=== PATIENT | male | born 1945 | race Caucasian/White ===

== ENCOUNTER → 2020-02-11 12:00 | Outpatient (BNVA) | payer OTHER, SELFPAY | PROVIDERS: PCP Family Medicine; Visit Provider Internal Medicine Critical Care Medicine | DX: R91.1 Solitary pulmonary nodule (principal) | CPT/HCPCS: 87635 ==

== ENCOUNTER 2020-02-15 08:17 | Day surgery (SDC) | payer OTHER, SELFPAY ==
[2020-02-14 13:26] VITALS: BMI 23.0
[2020-02-15] VITALS (7 sets, daily range): BP systolic 106–136; BP diastolic 55–80; PULSE 64–98; RESP 18–22; TEMP 36.4–36.8; O2SAT 94–100
--- NOTE | 2020-02-15 | CT_ITS ---
Guided Bronchoscopy Planning CT images; total exam DLP: 585.40 mGy-cm MTDD
[2020-02-15] MEDS: sodium chloride 0.9% 1,000 ML 30 ML IV (08:40)
--- NOTE | 2020-02-15 08:49 | P.ANESASSM_ITS ---
Pre-Anesthetic Assessment Pre-Anesthetic Assessment: Height/Weight: Height 1.83 m Weight 77.111 kg Temp Pulse Resp BP Pulse Ox 97.8 F 98 18 122/80 95 02/15/20 08:31 02/15/20 08:31 02/15/20 08:31 02/15/20 08:31 02/15/20 08:31 Preop Diagnosis: Lung cancer Proposed Procedure: Operation Date: 02/15/20 09:45 Proposed Procedures p Dominik C34.12 [id number](Not Applicable) - Estela Andrade MD Familial anesthetic complications: No personal history of anesthesia, no known family problems Was Beta Naa taken within 24 hours: N/A Last intake: Intake Last Liquid Date 02/14/20 Last Liquid Time 19:00 Last Solid Date 02/14/20 Last Solid Time 19:00 Social: Social History: No alcohol and No tobacco Exam: Pre-Anes Outpt Exam: alert, oriented x 3, clear to auscultation bilaterally and regular rate & rhythm Airway: Cervical ROM: WNL MP: 3 Dentition: Full Additional comments: kennedy Pulmonary: Pulmonary: COPD Comments: lung mass CV/HEM: CV/HEM: HTN Hepatic: Hepatic: Hepatitis (C) Anesthetic Plan: ASA status: 3 Anesthesia: General Risk of > 500 ml blood loss (7ml/kg in children): No Meds/Allergies Current Medications: Current Medications Generic Name Dose Route Start Last Admin Trade Name Freq PRN Reason Stop Dose Admin Sodium Chloride 1,000 mls @ 30 ml s/hr 02/15/20 08:00 02/15/20 08:40 Sodium Chloride 0.9% IV 02/16/20 07:59 30 mls/hr .Q24H TYRELL Administration PFSH Anesthesia PFSH: Medical History (Updated 02/11/20 @ 10:21 by Estela Andrade MD) Chronic viral hepatitis C COPD (chronic obstructive pulmonary disease) DDD (degenerative disc disease) Ganglion cyst HTN (hypertension) Malignant neoplasm of prostate Malignant neoplasm of upper lobe, left bronchus or lung Nicotine dependence Scalp mass Surgical History (Updated 02/11/20 @ 10:17 by Estela Andrade MD) History of surgical removal of ganglion cyst Hx of tonsillectomy Family History Father CAD (coronary artery disease) Cancer Social History Smoking and tobacco status: current every day smoker cigarettes Packs smoked p er day: 0.5 Years cigarettes smoked: 43 Second hand smoke exposure: Yes Alcohol intake: former Lives independently: Yes Household members: spouse Marital status: Current occupational status: retired History of recent travel: No Current gender identity: Male Data Anesthesia Cardiac Studies: No Data to Display
--- NOTE | 2020-02-15 10:09 | P.HPUD_ITS ---
Surgery/Procedure H&P Update DATE OF PROCEDURE: February 15, 2020 DATE H&P PERFORMED: 02/11/20 H&P UPDATE INFORMATION: I have reviewed H&P completed within last 30 days, I have examined patient prior to procedure and No changes to prior documentation PREOP DIAGNOSIS: Lung cancer PRIMARY INDICATION FOR PROCEDURE: Suspected lung cancer PLANNED PROCEDURE: Bronchoscopy with inspection of the airway, possible endobronchial and transbronchial biopsies under navigational guidance, endobronchial sound guided transbronchial needle aspiration of lymph nodes. Operation Date: 02/15/20 09:45 Proposed Procedures zion Lehman C34.12 [id number](Not Applicable) - [facility] MD Raymond
[2020-02-15] MEDS: lidocaine 1% INJ 50 mL 20 ML XX (12:26)
--- NOTE | 2020-02-15 13:02 | PM.OP ---
Operative Report Date of procedure: February 15, 2020 Pre-op Diagnosis: Lung cancer Post-op diagnosis: same Brief History: This is a 74-year-old gentleman with suspected metastatic lung cancer coming in for bronchoscopic evaluation. Procedure: Name of the procedure: Bronchoscopy with inspection of the airway, bronchoalveolar lavage, navigational bronchoscopy guided transbronchial biopsies of the left upper lobe lung mass, control of bleeding. Indication: Suspected lung cancer with metastatic disease to the brain. Anesthesia: General anesthesia. Local anesthesia: The brittany in the right and left mainstem bronchi were anesthetized with 1% lidocaine, 3 mL. Description of the procedure: The procedure was explained to the patient and the consent was obtained. The patient was brought to the OR. The patient underwent endotracheal intubation for general anesthesia. Following induction of general anesthesia, the bronchoscope was advanced through the ET tube. The lower trachea appeared to be normal. The brittany was sharp. The brittany, the right and left mainstem bronchi are anesthetized with 1% lidocaine. In a systematic manner bilateral bronchial tree was then examined. The bronchoscope was advanced into the left mainstem bronchus. The left upper lobe, lingula and left lower lobe bronchi were examined up to the third subsegmental level and no abnormalities were identified. The bronchoscope was then introduced into the right mainstem bronchus. The right upper lobe, right middle lobe and right lower lobe bronchi were examined up to the third subsegmental level and no abnormalities were identified. There was mild mucus throughout the airways. Using navigational bronchoscopy transbronchial biopsy was performed from the left upper lobe lung mass. Multiple samples are obtained Bronchoalveolar lavage was performed from the posterior segment of left upper lobe. 60 mL of fluid was instilled 20 cc fluid return. Samples: 1. Transbronchial biopsies are sent for histopathology 2. Bronchoalveolar lavage was sent for cytology. Complications: There was no immediate complications.
--- NOTE | 2020-02-15 13:04 | PC.NURSE ---
EBUS BALLOON REMAINS INTACT.
--- NOTE | 2020-02-15 14:06 | PTH.EBUS ---
Endobronchial Ultrasound Specimen(s): Left upper lobe mass transbronchial biopsy Gross: The specimen is received fresh on a slide labeled with the patient's name and MRN number and additionally labeled, left upper lobe mass transbronchial biopsy consists of a fragment of tiwari-white soft tissue measuring 0.1 x 0.1 x 0.1 cm. 2 Diff-Quik cytology slides are prepared with touch preparation. A rapid onsite evaluation is performed. Preliminary Impression: Lung, left upper lobe , mass, transbronchial biopsy: ?Positive for malignancy. ?Multiple small fragments are submitted in a formalin filled container for permanent sections. - Specimen Information Pathologist: Elia Chandler Date: 02/15/20 Specimen reported at what time: 13:05 - Clinician Specimen collection time: 12:47 Clinician reported to: Estela Andrade
== END 2020-02-15 14:26 | disposition home or self-care (01) ==
PROVIDERS: PCP Family Medicine; Visit Provider Internal Medicine Critical Care Medicine
PROC: 0BJ08ZZ Inspection of Tracheobronchial Tree, Via Natural or Artificial Opening Endoscopic (ICD-10-PCS; CPT 31622; principal; 2020-02-15 09:45)
PROC: 0BJ08ZZ Inspection of Tracheobronchial Tree, Via Natural or Artificial Opening Endoscopic (ICD-10-PCS; CPT 31622; 2020-02-15 09:45)
DX: C34.12 Malignant neoplasm of upper lobe, left bronchus or lung (principal); J44.9 Chronic obstructive pulmonary disease, unspecified; I10 Essential (primary) hypertension; B19.20 Unspecified viral hepatitis C without hepatic coma; F17.210 Nicotine dependence, cigarettes, uncomplicated; Z85.46 Personal history of malignant neoplasm of prostate
CPT/HCPCS: 12345; 31627; 31628; 77011; 80500; 88112; 88305; J1100; J2250; J2310; J2370; J2405; J2704; J3010; J3490; J7030

== ENCOUNTER 2020-03-17 05:21 | Outpatient (RCR) | payer OTHER, SELFPAY ==
--- NOTE | 2020-02-27 09:38 | ONC CON_ITS ---
Dr. Jefferson New Patient Note Patient: Rubén Vicente < Unit #: [id number]: 1945 Dicatated By: Galindo Jefferson M.D.Date of Visit: Feb 27, 2020 Onc MED New Patient/Consult Referring Physician: Dr. KAY CHANG M.D. [facility] [place] History of Present Illness: Mr. Rubén Vicente, is a 75-year-old gentleman, who in the last week of December 2019 developed progressive headaches for which he underwent MRI scan of the brain on January 17 2020 which showed 3 enhancing lesions with surrounding edema involving the left side of brainstem at the level of katy. There is edema involving portion of anterior left side of cerebellum. Fourth ventricle demonstrates mild mass-effect from the edema. Supratentorially there is an enhancing lesion in the right thalamus with a large amount of surrounding edema causing midline shift from left to right approximately 4 to 5 mm. There is an enhancing lesion with a surrounding edema involving cortex and deep white matter right occipital lobe. As per pulmonology note patient underwent CT scan of chest which showed large mass measuring 6.5 x 5.1 x 5.3 cm left upper lobe and also another nodule in the same lobe. Patient underwent bronchoscopy with transbronchial biopsy on February 15, 2020 which showed poorly differentiated adenocarcinoma, favor lung region as immunohistochemistry stains were positive for TTF-1, Napsin, CK cocktail, CK7, and negative for PSA, p63, synaptophysin, CK20, CK 5/6 and chromogranin A and CDX2. Patient denies any hemoptysis or hematemesis, denies any bony pains, denies any jaundice, denies any focal weakness, denies any dysphagia. But lost about 10 pounds in the last couple of months. Patient has history of prostate cancer diagnosed in April 2015, Wren score was [address] scan of abdomen/pelvis and bone scan shows no evidence of metastatic disease, being high risk, at that time he was treated with Eligard and radiation therapy patient continue to take Eligard every 3 months and the last dose was given in December 2019 Patient has history of smoking for 50 years but quit smoking in December 2019, history of alcohol use, mostly beer only. Patient denies any fever chills, denies any nausea or vomiting denies any diarrhea or constipation, denies any shortness of breath. Appetite is good. He is alert and oriented but complaining of progressive worsening of handwriting and questionable memory loss but no seizure-like activity.Or focal weakness Past Medical History: Mr. Vicente's medical history consists of hepatitis C, hypertension, and cancer (Prostate) in 2016. Past Surgical History: Mr. Vicente's surgical/procedural history consists of Transrectal Prostate Ultrasound & Prostate Biopsy in 2016. Medications: Eligard 1 (22.5 mg) Subcutaneous q 90 days Allergies: No Known Allergies. Social History: Mr. Vicente is legally and he is retired. He is a daily smoker who has smoked 1.0 pack/day for 43 years. He drinks occasionally. He consumes 6 drinks/day 4 days/week. He has indicated exposure to the following products: beer, marijuana, and cigarettes. Family History: Mr. Vicente's mother is alive: Melanoma Cancer. Mr. Vicente's father is : Cancer. Review Of Symptoms: Constitutional - Appetite is diminished and weight is stable. No fever, night sweats, or hot flashes. Energy level is fair, ENMT - No sinus congestion/drainage. No mouth sores. No sore throat or difficulty swallowing, Hematologic/Lymphatic - No abnormal bruising or bleeding, Respiratory - No shortness of breath. No cough. No pleuritic pain or hemoptysis, Cardiovascular - No angina pain. No palpitations, Gastrointestinal - No nausea or vomiting. No heartburn or acid reflux. No diarrhea or constipation. No blood in the stool or black stools, Genitourinary (M) - No dysuria or hematuria. No urinary frequency. No urgency or incontinence, Musculoskeletal - No joint or bone pain, Neurologic - No headache. Positive for dizziness. No numbness or tingling. No other focal neurologic symptoms, Psychiatric - No anxiety or depression. No insomnia. Vital Signs: Performed on Feb 27, 2020 08:10: 0, 24.11, 2.03 sq.m, 72.00 in, 97 %, 82 /min, 18 /min, 123/74 mm(hg), 97.7 F (LOW), 177.8 lbs (LOW), and Performed on Feb 16, 2017 08:49: . Performance Status: 1 - No physically strenuous activity, but ambulatory and able to carry out light or sedentary work (e.g. office work, light house work). (ECOG) Physical Examination: ENMT - No mouth sores, no thrush, no jaundice, Respiratory - Poor air entry otherwise otherwise clear to auscultation, Heart S1-S2, Abdomen - Soft, bowel sounds present, Extremities - No visible edema or focal weakness. Lab/Imaging: Most recent lab results are not available for this patient. Impression: [Metastatic poorly differentiated adenocarcinoma, favor lung lesion per transbronchial biopsy done on February 15, 2020 immunohistochemistry positive for TTF-1, Napsin, CK cocktail, CK7, negative for PSA, p63, synaptophysin, CK20, CK 5 6, CDX2, chromogranin A. MRI scan of the brain done on January 17, 2020 showed brain mets Clinical stage IV History of prostate cancer, high risk diagnosed in April 2015, with negative CT scan of abdomen pelvis and bone scan but high Wren score, being high risk status post ADT/radiation therapy followed by Susanna every 3 months, last dose was given in December 2018 History of smoking 50+ year quit in December 2019 Plan: [Discussed with patient regarding his disease status and treatment options, patient has progressive neurological symptoms due to brain mets, now with worsening of handwriting and questionable memory loss and persistent headaches, probably due to brain mets with surrounding edema, at this point, we will start him on dexamethasone 4 mg p.o. every 8 hours andRadiation oncology well tapered off dexamethasone dose then will refer him to radiation oncology Case was discussed with Dr. Sommer, radiation oncologist who will see him today and consider starting whole brain radiation REENA. And case was also discussed with pathology and consider next nation sequencing to identify targetable therapy. And also consider CT PET scan to assess extent of disease and the patient return to clinic in 3 weeks with CBC CMP, For further discussion regarding systemic therapy based on next generation sequencing report and he will be receiving whole brain radiation for 2 weeks. Patient has completed almost 4 years of Eligard as far as prostate cancer is concerned, and he is symptomatic because of tenderness in his breast and hot flashes and generalized weakness and fatigue, and as per patient his PSA has been subzero for long time, will consider discontinue his Eligard as related side effects may make it hard for him to tolerate systemic therapy for metastatic lung cancer Signed By: Galindo Jefferson M.D. <<Signature on File>>
--- NOTE | 2020-02-27 10:55 | N.ONRAD NP_ITS ---
Radiation Oncology Consultation Note Patient: Rubén Vicente MR#: [id number] : 1945 Attending Physician: Fabian Sommer M.D. Date of Service: 02/27/2020 Rubén Vicente was seen in consultation this morning for evaluation regarding cranial radiotherapy for the management of his recently diagnosed non-small cell lung cancer. Briefly, the patient initially presented to the [facility] with headaches and ago on March 18, 2020. MR of the brain identified an enhancing lesion within the katy, a lesion within the right thalamus causing a midline shift approximately 5 mm, and an enhancing lesion involving the deep white matter of the right occipital lobe. A subsequent CT revealed a 6.5 cm x 5.1 cm x 5.3 cm left upper lobe mass without adenopathy. A bronchoscopy was performed by Estela Andrade M.D. diagnosed and adenocarcinoma with immunohistochemical stains for TTF-1, Napsin, and CK7 while negative for p63 and CK 5/6.I have been asked to evaluate the patient for cranial radiotherapy in the setting of newly diagnosed metastatic non-small cell lung cancer. The patient's past medical history is significant for COPD, degenerative disc disease, ganglion cyst, hepatitis C, hypertension, and prostate cancer, His past surgical interventions ganglionic cyst removal and tonsillectomy. I have reviewed the patient's medication profile which is available in the electronic medical record. He denied drug allergies. The patient's family history was unremarkable for pulmonary malignancies. The patient was accompanied to this consultation by his daughter. He denied alcohol intake but described a tobacco habit of 1/2 packs per day for 61 years. On review of systems, he did not report any constitutional complaints including fevers of unknown origin or unintentional weight loss. There were no head neck complaints including diplopia, tinnitus, epistaxis, or dysphagia. He did not report breast complaints such as masses or nipple discharge nor any enlarged lymph nodes of the neck, armpit, or groin. He denied any cardiopulmonary symptoms such as angina, cough, or palpitations. He did describe hiccups. On gastrointestinal review, he reported belching and mild nausea. There were no genitourinary complaints such as dysuria or hematuria. He did not report any musculoskeletal complaints including bone pain or muscle weakness. He disavowed neurological symptoms including, visual changes, paresthesias or seizures, but did describe headaches and vertigo. On physical examination, the patient has an ECOG performance status of 1. His height was 6 ft tall and he weighed 179 lbs. The temperature was 97.7?F. The blood pressure was 123/74 mmHg. The pulse was 82 bpm and the respiratory rate of was 18. The head was normocephalic and atraumatic. Ophthalmoscopy identified bilateral red reflexes with sharp fundi visualized. Otoscopy revealed light reflex upon the tympanic membranes. The oral cavity had moist mucous membranes and no oropharyngeal exudate was present. He was edentulous. There was no cervical adenopathy or thyromegaly. Normal fremitus was noted with resonance to percussion elicited. Bronchovesicular breath sounds were auscultated in the posterior lung morrison with basilar rails. Cardiac sounds were regular in rate and rhythm. No auscultated gallops or murmurs present. No JVD noted. The abdomen had active bowel sounds. No tenderness to palpation. No evidence of organomegaly. No muscle weakness upon testing. No tenderness to deep palpation along the axial skeleton. Cranial nerves II through XII were intact. No sensory deficits. Gait was unsteady. In summary, the patient initially presented to the [facility] with headaches and ago on March 18, 2020. MR of the brain identified an enhancing lesion within the katy, a lesion within the right thalamus causing a midline shift approximately 5 mm, and an enhancing lesion involving the deep white matter of the right occipital lobe. A subsequent CT revealed a 6.5 cm x 5.1 cm x 5.3 cm left upper lobe mass without adenopathy. A bronchoscopy was performed by Estela Andrade M.D. diagnosed and adenocarcinoma with immunohistochemical stains for TTF-1, Napsin, and CK7 while negative for p63 and CK 5/6.I have been asked to evaluate the patient for cranial radiotherapy in the setting of newly diagnosed metastatic non-small cell lung cancer. I have been asked to evaluate the patient for cranial radiotherapy in the setting of newly diagnosed non-small cell lung cancer. I reviewed with the patient the role of radiotherapy in the management of cranial metastases. Potential toxicities of WBRT were reviewed. Anticipated 2-week course of radiotherapy will be implemented following CT radiotherapy planning. The patient verbalized understanding and would like to proceed with whole brain radiotherapy. Fabian Sommer M.D February @ 10:57 am 02/27/2020 10:57:37 AMSignature on file
--- NOTE | 2020-02-28 | CT_ITS ---
Radiation Therapy Planning CT images; total exam DLP: 361.82 mGy-cm MTDD
--- NOTE | 2020-03-03 16:15 | N.ONRAD NP_ITS ---
Verification Simulation Note Patient Name: Rubén Vicente Date of : 1945 Date of Service: 03/03/2020 Attending Physician: Fabian Sommer M.D. Rubén Vicente is a 75 year-old white male diagnosed with metastatic [id number] lung cancer. He presents for whole brain radiotherapy. He was escorted to the linear accelerator vault and was placed in the treatment position in accordance to his simulation setup sheet. Images were obtained via KV-KV radiographs and the isocenter was verified. A prescribed dose of 30 Gy will be delivered in 10 fractions. Signed by: Dr. Fabian Sommer 03/03/2020 4:13:42 PM
--- NOTE | 2020-03-05 10:28 | ONCRAD TMN_ITS ---
Radiation Oncology Weekly Treatment Management Patient: Jules Montana> MR#: [id number] : 1945> Attending Physician: Fabian Sommer M.D. Date of Service: 03/05/2020 Referring Physician(s): Galindo Jefferson The patient is a 75 year-old white male diagnosed with newly diagnosed brain metastases. The patient has received 9 Gy of a prescribed 30 Duncan with a 3-dimensional conformal radiotherapy plan utilizing a half beam block treatment technique with opposed lateral portal morrison. Upon review of systems, he denied any neurological complaints. On physical examination, the patient weighed 183 lbs. His temperature was 98.5 ???F with a blood pressure of 139/82 mmHg. His pulse was 61 bpm and his respiratory rate was 20. Cranial nerves were intact. There was no thrush in the oropharynx. Continue whole brain radiotherapy as planned. Signed by: Dr. Fabian Sommer 03/05/2020 10:26:08 AM
--- NOTE | 2020-03-10 10:09 | ONCRAD TMN_ITS ---
Radiation Oncology Weekly Treatment Management Patient: Jules Montana MR#: [id number] : 1945 Attending Physician: Fabian Sommer M.D. Date of Service: 03/10/2020 Referring Physician(s): Galindo Jefferson The patient is a 75 year-old white male diagnosed with newly diagnosed brain metastases. The patient has received 18 Gy of a prescribed 30 Duncan with a 3-dimensional conformal radiotherapy plan utilizing a half beam block treatment technique with opposed lateral portal morrison. Upon review of systems, he denied any neurological complaints. On physical examination, the patient weighed 185 lbs. His temperature was 97.9 ???F with a blood pressure of 140/63 mmHg. His pulse was 75 bpm and his respiratory rate was 20. Cranial nerves were intact. There was no thrush in the oropharynx. Continue whole brain radiotherapy as planned. Signed by: Dr. Fabian Sommer 03/10/2020 10:08:42 AM
--- NOTE | 2020-03-17 09:35 | ONCRAD TMN_ITS ---
Radiation Oncology Weekly Treatment Management Patient: Jules Montana MR#: [id number] : 1945 Attending Physician: Fabian Sommer M.D. Date of Service: 03/05/2020 Referring Physician(s): Galindo Jefferson The patient is a 75 year-old white male diagnosed with brain metastases. The patient has received 3 Gy of a prescribed 30 Duncan with a 3-dimensional conformal radiotherapy plan utilizing a half beam block treatment technique with opposed lateral portal morrison. Upon review of systems, he denied any neurological complaints. On physical examination, the patient weighed 178 lbs. His temperature was 97.7 ???F with a blood pressure of 123/74 mmHg. His pulse was 82 bpm and his respiratory rate was 18. Cranial nerves were intact. There was no thrush in the oropharynx. Continue whole brain radiotherapy as prescribed. Signed by: Dr. Fabian Sommer 03/17/2020 9:38:56 AM
--- NOTE | 2020-03-17 09:36 | ONCRAD TMN_ITS ---
Radiation Oncology Weekly Treatment Management Patient: Jules Montana MR#: [id number] : 1945 Attending Physician: Fabian Sommer M.D. Date of Service: 03/10/2020 Referring Physician(s): Galindo Jefferson The patient is a 75 year-old white male diagnosed with brain metastases. The patient has received 3 Gy of a prescribed 30 Duncan with a 3-dimensional conformal radiotherapy plan utilizing a half beam block treatment technique with opposed lateral portal morrison. Upon review of systems, he denied any neurological complaints. On physical examination, the patient weighed 183 lbs. His temperature was 98.5 ???F with a blood pressure of 139/82 mmHg. His pulse was 61 bpm and his respiratory rate was 20. Cranial nerves were intact. There was no thrush in the oropharynx. Continue whole brain radiotherapy as planned. Signed by: Dr. Fabian Sommer 03/17/2020 9:39:15 AM
== END 2020-03-17 23:59 | disposition home or self-care (01) ==
LOC: ONCMED 05:21
PROVIDERS: PCP Family Medicine; Visit Provider Radiology Radiation Oncology
DX: Z51.0 Encounter for antineoplastic radiation therapy (principal); C79.31 Secondary malignant neoplasm of brain; C34.12 Malignant neoplasm of upper lobe, left bronchus or lung; Z87.891 Personal history of nicotine dependence; Z85.46 Personal history of malignant neoplasm of prostate; Z92.3 Personal history of irradiation
CPT/HCPCS: 77280; 77290; 77295; 77300; 77334; 77336; 77412; 77417; 99203; 99215

== ENCOUNTER 2020-03-27 05:25 | Outpatient (RCR) | payer OTHER, SELFPAY ==
[2020-03-27 12:07] LABS: Basophils % 0.3 %; Eosinophils % 0.2 %; Hematocrit 46.4 % (42.0-52.0); Hemoglobin 14.9 g/dL (11.7-16.6); Lymphocytes # 0.3 10^3/uL (0.8-4.8); Lymphocytes % 3.9 %; Mean Corpuscular HGB Conc 32.1 g/dL (30.0-36.0); Mean Corpuscular Hemoglobin 29.5 pg (28.0-34.0); Mean Corpuscular Volume 91.9 fL (80-94); Mean Platelet Volume 9.5 fL (7.4-10.4); Monocytes # 0.2 10^3/uL (0.2-0.9); Monocytes % 3.7 %; Neutrophils # 5.73 10^3/uL (1.8-7.7); Neutrophils % 89.3 %; Nucleated Red Blood Cells % 0 %; Platelet Count 180 10^3/cmm (130-400); Red Blood Count 5.05 10^6/uL (4.1-5.3); Red Cell Distribution Width 16.2 % (12.1-15.1); White Blood Count 6.4 10^3/uL (4.0-10.0)
[2020-03-27 12:24] LABS: Alanine Aminotransferase 28 U/L (0-41); Albumin Level 3.7 g/dL (3.5-5.2); Alkaline Phosphatase 69 IU/L (40-130); Blood Urea Nitrogen 16 mg/dL (8-23); Calcium 9.4 mg/dL (8.5-10.5); Carbon Dioxide 29 mmol/L (22-29); Chloride 99 mmol/L (98-107); Globulin 3.1 g/dL (1.3-4.6); Glucose 140 mg/dL (65-115); Osmolality Calculated 283 mOsm/kg (285-295); Sodium 135 mmol/L (136-145); Total Bilirubin 0.3 mg/dL (0.15-1.2); Total Protein 6.8 g/dL (6.6-8.7)
[2020-03-27 12:26] LABS: Anion Gap 11.7 (5-19); Potassium 4.7 mmol/L (3.5-5.1)
[2020-03-27 12:27] LABS: Aspartate Amino Transferase 24 U/L (0-40)
[2020-03-27 13:58] LABS: Magnesium 2.2 mg/dL (1.7-2.3)
--- NOTE | 2020-03-28 00:44 | ONC FU_ITS ---
Dr. Jefferson follow up note Patient: Rubén Vicente Unit #: [id number]: 1945 Dicatated By: Galindo Jefferson M.D.Date of Visit:Mar 27, 2020 Onc Med Follow-up/Prog Note History of Present Illness: Mr. Rubén Vicente, is a 75-year-old gentleman, who in the last week of December 2019 developed progressive headaches for which he underwent MRI scan of the brain on January 17 2020 which showed 3 enhancing lesions with surrounding edema involving the left side of brainstem at the level of katy. There is edema involving portion of anterior left side of cerebellum. Fourth ventricle demonstrates mild mass-effect from the edema. Supratentorially there is an enhancing lesion in the right thalamus with a large amount of surrounding edema causing midline shift from left to right approximately 4 to 5 mm. There is an enhancing lesion with a surrounding edema involving cortex and deep white matter right occipital lobe. As per pulmonology note patient underwent CT scan of chest which showed large mass measuring 6.5 x 5.1 x 5.3 cm left upper lobe and also another nodule in the same lobe. Patient underwent bronchoscopy with transbronchial biopsy on February 15, 2020 which showed poorly differentiated adenocarcinoma, favor lung region as immunohistochemistry stains were positive for TTF-1, Napsin, CK cocktail, CK7, and negative for PSA, p63, synaptophysin, CK20, CK 5/6 and chromogranin A and CDX2. Patient denies any hemoptysis or hematemesis, denies any bony pains, denies any jaundice, denies any focal weakness, denies any dysphagia. But lost about 10 pounds in the last couple of months. Patient has history of prostate cancer diagnosed in April 2015, Kyung score was [address] scan of abdomen/pelvis and bone scan shows no evidence of metastatic disease, being high risk, at that time he was treated with Eligard and radiation therapy patient continue to take Eligard every 3 months and the last dose was given in December 2019 Patient has history of smoking for 50 years but quit smoking in December 2019, history of alcohol use, mostly beer only. Patient denies any fever chills, denies any nausea or vomiting denies any diarrhea or constipation, denies any shortness of breath. Appetite is good. He is alert and oriented but complaining of progressive worsening of handwriting and questionable memory loss but no seizure-like activity.Or focal weakness As patient was having worsening of handwriting and questionable memory loss,, he was started on dexamethasone as his MRI scan of the brain done on January 17, 2020 showed brain mets and he was referred to radiation oncology for evaluation and patient received 30 Gy from March 03, 2020 till March 18, 2020, tolerated well and now on tapering dose of dexamethasone also had CT PET scan done on March 01, 2020 showed 4 x 4.6 x 3.8 cm left upper lobe mass with central necrosis with SUV of 12.8 and second solid nodule in the left upper lobe measuring 1.2 x 0.9 cm FDG negative and local metastatic disease is present in the superior left hilar node measuring 1.3 cm with SUV of 5.2 and questionable uptake in the subaortic node is likely reactive. Came for follow-up, denies any specific complaint except excessive urination and off and on leg cramps and dry/pam mouth and gums otherwise no problem with swallowing, no focal weakness, no seizure-like activity, tolerated whole brain radiation therapy well. No hemoptysis or hematemesis, no fever chills, no nausea or vomiting, no diarrhea or constipation, no jaundice, appetite is good Medications: Dexamethasone 1 Tablet (of 4 mg) Oral daily Allergies: No Known Allergies. Review of Systems: Constitutional - Appetite is diminished and weight is stable. No fever, night sweats, or hot flashes. Energy level is fair, ENMT - No sinus congestion/drainage. Positive for mouth sores. No sore throat or difficulty swallowing, Hematologic/Lymphatic - No abnormal bruising or bleeding, Respiratory - No shortness of breath. No cough. No pleuritic pain or hemoptysis, Cardiovascular - No angina pain. No palpitations, Gastrointestinal - No nausea or vomiting. No heartburn or acid reflux. No diarrhea or constipation. No blood in the stool or black stools, Genitourinary (M) - No dysuria or hematuria. No urinary frequency. No urgency or incontinence, Musculoskeletal - No joint or bone pain, Neurologic - No headache. Positive for dizziness. No numbness or tingling. No other focal neurologic symptoms, Psychiatric - No anxiety or depression. Positive for insomnia. Vital Signs: Performed on Mar 27, 2020 12:43 Height - 72.00 in Weight - 181.6 lbs (LOW) BSA - 2.04 sq.m BMI - 24.63 Temperature - 99.2 F (HIGH) Pulse - 88 /min Respiration - 20 /min BP - 110/66 mm(hg) O2 Sat - 97 % Pain - 5 Performance Status: 1 - No physically strenuous activity, but ambulatory and able to carry out light or sedentary work (e.g. office work, light house work). (ECOG) Physical Examination: ENMT - No mouth sores but thrush involving gums, no jaundice, Respiratory - Lungs are clear to auscultation, Cardiovascular - Regular rate and rhythm of heart, Abdomen - Soft, bowel sounds present, Extremities - No visible edema or rash. Lab/Imaging: Most recent lab results are not available for this patient. 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 Local metastatic disease is present in the superior left hilar node measuring 1.3 cm with SUV of 5.2. History of prostate cancer, high risk diagnosed in April 2015, with negative CT scan of abdomen pelvis and bone scan but high [place] score, being high risk patient status post ADT/radiation therapy followed by Susanna every 3-month till December 2018 Plan: Discussed with patient regarding his labs white blood count 6.4 hemoglobin 14.9 hematocrit 46.4 platelets 180,000 CMP within normal limits except glucose [address] PET scan finding Clinically, patient doing well with no new signs symptom except dry/pam feeling in the mouth probably due to oral thrush because of steroids, otherwise tolerated whole brain radiation therapy well,, will consider nystatin swish and spit 3 times a day and discontinue his dexamethasone. As far as off-and-on leg cramps is concerned probably due to excessive urination due to diuresis due to steroid induced hyperglycemia. We will discontinue dexamethasone and also check his magnesium level if low will supplement. Case was discussed with pathologist today and specimen has been sent for next generation sequencing to identify actionable target, patient is not keen to start palliative chemotherapy rather prefer immunotherapy or targetable therapy As per pathology it will take about 3 weeks before next nation sequencing results is available, patient will return to clinic in 1 month with CBC CMP and if next nation sequencing shows actionable mutation, then will consider treatment based on that otherwise discuss about palliative chemotherapy, as mentioned above patient is reluctant to consider systemic chemotherapy. . Signed By: Galindo Jefferson M.D. <<Signature on File>>
== END 2020-04-17 23:59 | disposition home or self-care (01) ==
LOC: ONCMED 05:25
PROVIDERS: PCP Family Medicine; Visit Provider Internal Medicine Hematology & Oncology
DX: Z51.0 Encounter for antineoplastic radiation therapy (principal); C34.12 Malignant neoplasm of upper lobe, left bronchus or lung; C79.31 Secondary malignant neoplasm of brain; Z85.46 Personal history of malignant neoplasm of prostate; Z79.899 Other long term (current) drug therapy
CPT/HCPCS: 36415; 77336; 77412; 80053; 83735; 85025; 99214

== ENCOUNTER 2020-04-21 16:43 | Emergency (ER) | payer OTHER, SELFPAY ==
[2020-04-21] VITALS (13 sets, daily range): BP systolic 117–155; BP diastolic 74–88; PULSE 66–95; RESP 18; TEMP 36.8; O2SAT 94–99; BMI 23.6
--- NOTE | 2020-04-21 19:09 | ED_ITS ---
HPI - Dizziness General: Chief Complaint: Dizziness Stated Complaint: DIZZINESS, BLURRED VISION Time Seen by Provider: 04/21/20 19:00 Source: patient Mode of arrival: ambulatory Limitations: no limitations History of Present Illness: HPI Narrative: 75-year-old male states he has been having dizziness throughout the day. States that this feels lightheaded at times. He denies any worsening improving factors. He states he did have a fall earlier today but denies hitting his head. Patient had imaging ordered in the waiting room and he states that he does not want a head CT and he adamantly refuses it. He states he like to get his blood drawn just to make sure he is not anemic. He has a history of lung cancer with neoplasm to the brain. Associated symptoms: Denies chest pain, chills, nausea or vomiting Review of Systems Const: Denies: fever(s), chills, body aches or change in appetite Eyes: Denies: blurry vision or eye discomfort ENMT: Denies: throat pain or dental pain Card: Denies: chest pain Resp: Denies: dyspnea GI: Denies: abdominal pain, nausea, vomiting or diarrhea : Denies: dysuria Musc: Denies: neck pain or back pain Skin/Breast: Denies: rash Neuro: Reports: dizziness Psych: Denies: depression Noe/Lymph: Denies: easy bruising All/Imm: Denies: urticaria PFSH ED PFSH: Medical History Chronic viral hepatitis C COPD (chronic obstructive pulmonary disease) DDD (degenerative disc disease) Ganglion cyst HTN (hypertension) Malignant neoplasm of prostate Malignant neoplasm of upper lobe, left bronchus or lung Nicotine dependence Scalp mass Surgical History History of surgical removal of ganglion cyst Hx of tonsillectomy Family History Father CAD (coronary artery disease) Cancer Social History Smoking and tobacco status: former smoker Quit status (tobacco): has quit using tobacco Year quit tobacco: 2020 - Hx of 1PPD x 50 Y Second hand smoke exposure: Yes Alcohol intake: former Lives independently: Yes Household members: spouse Marital status: Current occupational status: retired History of recent travel: No Current gender identity: Male Physical Exam Const: COMMON NORMALS: no acute distress, patient oriented x3, healthy appearing and alert ORIENTATION/CONSCIOUSNESS: Yes oriented to person, Yes oriented to place and Yes oriented to time HENMT: COMMON NORMALS: normocephalic and atraumatic HEAD & SCALP: normocephalic and atraumatic Eye: COMMON NORMALS: Equal, round and reactive pupils present and EOMs intact bilaterally PUPIL: Yes Equal, round and reactive pupils present Neck/C-Spine: COMMON NORMALS: full ROM, supple and no meningeal signs Chest: COMMONS NORMALS: normal inspection of the chest and normal palpation of entire chest wall Resp: COMMON NORMALS: normal respiratory effort, No retractions, No use of accessory muscles and clear to auscultation bilaterally AUSCULTATION: clear to auscultation bilaterally Cardio: COMMON NORMALS: regular rate, regular rhythm and No murmurs present (Cardio) RATE: regular rate RHYTHM: regular rhythm GI: COMMON NORMALS: Normal to inspection, nondistended, normoactive bowel sounds present, Soft to palpation, non-tender and no masses PALPATION: Yes Soft to palpation Extremity: COMMON NORMALS: normal to inspection and full ROM Neuro: COMMON NORMALS: patient oriented x3, moves all extremities and no focal motor deficits SENSORIUM/ORIENTATION: Yes alert, Yes oriented to person, Yes oriented to place and Yes oriented to time MENINGEAL SIGNS: Yes no meningeal signs CRANIAL NERVES: Yes CN normal except as noted COORDINATION/BALANCE: [id number] test normal SPEECH: speech normal GAIT: Yes Normal gait present MOTOR EXAM: 5/5 motor strength present throughout COORDINATION: [id number] test normal OTHER: Pupils equal and round to light. Visual morrison intact to both eyes Psych: COMMON NORMALS: mental status grossly normal, Normal thought process present and cooperative THOUGHT PROCESS: Normal thought process present Skin: COMMON NORMALS: no rashes or lesions noted and no wounds GENERAL SKIN EXAM: no rashes or lesions noted Course Vital Signs: Vital signs: Vital Signs Temperature 98.2 F 04/21/20 16:52 Pulse Rate 95 04/21/20 16:52 Respiratory Rate 18 04/21/20 16:52 Blood Pressure 135/80 04/21/20 16:52 Pulse Oximetry 95 04/21/20 16:52 MDM - Dizziness MDM Narrative: Medical decision making narrative: Patient presents here with dizziness that is since resolved IV fluids. I informed her I would like to rule out a stroke and a CT head. He refused all imaging. He states that he just wants blood work done and IV fluids. Blood work here is normal and he feels mu ch improved after IV fluids. He was able to walk the halls out any symptoms. He still refuses any imaging. I informed him he is stable for discharge if he has any return of his symptoms he is to return immediately. He needs to follow- up with PCP in 2 to 4 days and return if worsening. Lab Data: Labs: Lab Results 04/21/20 04/21/20 Range/Units 19:18 19:18 WBC 11.3 H (4.0-10.0) 10^3/ uL RBC 4.67 (4.1-5.3) 10^6/u L Hgb 13.9 (11.7-16.6) g/dL Hct 42.3 (42.0-52.0) % MCV 90.6 (80-94) fL MCH 29.8 (28.0-34.0) pg MCHC 32.9 (30.0-36.0) g/dL RDW 15.5 H (12.1-15.1) % Plt Count 282 (130-400) 10^3/c mm MPV 9.8 (7.4-10.4) fL Neut % (Auto) 85.3 % Lymph % (Auto) 8.1 % Waldo % (Auto) 4.3 % Eos % (Auto) 0.1 % Baso % (Auto) 0.4 % Neut # (Auto) 9.68 H (1.8-7.7) 10^3/u L Lymph # (Auto) 0.9 (0.8-4.8) 10^3/u L Waldo # (Auto) 0.5 (0.2-0.9) 10^3/u L Eos # (Auto) 0.0 (0.0-0.8) 10^3/u L Baso # (Auto) 0.0 (0.0-0.1) 10^3/u L Nucleated RBC % (a uto) 0 % Nucleated RBCs # 0.0 /100WBC Sodium 135 L (136-145) mmol/L Potassium 4.6 (3.5-5.1) mmol/L Chloride 97 L (98-107) mmol/L Carbon Dioxide 26 (22-29) mmol/L Anion Gap 16.6 (5-19) BUN 18 (8-23) mg/dL Creatinine 0.5 L (0.7-1.2) mg/dL GFR Calculation Not Reportable Glucose 120 H (65-115) mg/dL Calculated Osmolal ity 283 L (285-295) mOsm/k g Calcium 9.7 (8.5-10.5) mg/dL Total Bilirubin 0.2 (0.15-1.2) mg/dL AST 28 (0-40) U/L ALT 44 H (0-41) U/L Alkaline Phosphata se 71 (40-130) IU/L Total Protein 7.0 (6.6-8.7) g/dL Albumin 3.7 (3.5-5.2) g/dL Globulin 3.3 (1.3-4.6) g/dL Discharge Plan Discharge Patient Disposition: Home Clinical Impression: Dizziness Condition: Stable Prescriptions: No Action dexamethasone 4 mg tablet 4 mg PO TID@0700,1200,1900 RF: 0 Discharge Orders: Discharge ED (Routine); Ordered 04/21/20 Ordered By: Jillian Hammond Referrals: Dali Jimenez MD [Primary Care Provider] - Discharge Diet: Advance as tolerated Discharge Activity: Resume usual activity Patient Instructions: Dizziness (ED) Coding Level of Care Code ED Corrections Officer for Chg Fwd Exam Comprehensive
[2020-04-21] MEDS: sodium chloride 0.9% 1,000 ML 999 ML IV (19:20)
[2020-04-21 19:31] LABS: Basophils % 0.4 %; Eosinophils % 0.1 %; Hematocrit 42.3 % (42.0-52.0); Hemoglobin 13.9 g/dL (11.7-16.6); Lymphocytes # 0.9 10^3/uL (0.8-4.8); Lymphocytes % 8.1 %; Mean Corpuscular HGB Conc 32.9 g/dL (30.0-36.0); Mean Corpuscular Hemoglobin 29.8 pg (28.0-34.0); Mean Corpuscular Volume 90.6 fL (80-94); Mean Platelet Volume 9.8 fL (7.4-10.4); Monocytes # 0.5 10^3/uL (0.2-0.9); Monocytes % 4.3 %; Neutrophils # 9.68 10^3/uL (1.8-7.7); Neutrophils % 85.3 %; Nucleated Red Blood Cells % 0 %; Platelet Count 282 10^3/cmm (130-400); Red Blood Count 4.67 10^6/uL (4.1-5.3); Red Cell Distribution Width 15.5 % (12.1-15.1); White Blood Count 11.3 10^3/uL (4.0-10.0)
[2020-04-21 19:54] LABS: Alanine Aminotransferase 44 U/L (0-41); Albumin Level 3.7 g/dL (3.5-5.2); Alkaline Phosphatase 71 IU/L (40-130); Anion Gap 16.6 (5-19); Aspartate Amino Transferase 28 U/L (0-40); Blood Urea Nitrogen 18 mg/dL (8-23); Calcium 9.7 mg/dL (8.5-10.5); Carbon Dioxide 26 mmol/L (22-29); Chloride 97 mmol/L (98-107); Globulin 3.3 g/dL (1.3-4.6); Glucose 120 mg/dL (65-115); Osmolality Calculated 283 mOsm/kg (285-295); Potassium 4.6 mmol/L (3.5-5.1); Sodium 135 mmol/L (136-145); Total Bilirubin 0.2 mg/dL (0.15-1.2)
== END 2020-04-21 21:32 | disposition home or self-care (01) ==
PROVIDERS: Family Medicine; Emergency Provider Emergency Medicine; PCP Family Medicine
DX: R42 Dizziness and giddiness (principal); Z86.19 Personal history of other infectious and parasitic diseases; J44.9 Chronic obstructive pulmonary disease, unspecified; I10 Essential (primary) hypertension; Z85.46 Personal history of malignant neoplasm of prostate; Z85.118 Personal history of other malignant neoplasm of bronchus and lung; Z87.891 Personal history of nicotine dependence
CPT/HCPCS: 12345; 80053; 85025; 96360; 99283; J7030

== ENCOUNTER 2020-05-15 05:32 | Outpatient (RCR) | payer OTHER, SELFPAY ==
[2020-05-01 14:46] LABS: Basophils % 0.3 %; Eosinophils % 0.1 %; Hematocrit 41.4 % (42.0-52.0); Hemoglobin 13.2 g/dL (11.7-16.6); Lymphocytes # 0.6 10^3/uL (0.8-4.8); Lymphocytes % 7.8 %; Mean Corpuscular HGB Conc 31.9 g/dL (30.0-36.0); Mean Corpuscular Hemoglobin 29.9 pg (28.0-34.0); Mean Corpuscular Volume 93.7 fL (80-94); Mean Platelet Volume 10.3 fL (7.4-10.4); Monocytes # 0.4 10^3/uL (0.2-0.9); Monocytes % 4.9 %; Neutrophils # 6.59 10^3/uL (1.8-7.7); Neutrophils % 85.6 %; Nucleated Red Blood Cells % 0 %; Platelet Count 201 10^3/cmm (130-400); Red Blood Count 4.42 10^6/uL (4.1-5.3); Red Cell Distribution Width 16.4 % (12.1-15.1); White Blood Count 7.7 10^3/uL (4.0-10.0)
[2020-05-01 15:09] LABS: Alanine Aminotransferase 32 U/L (0-41); Albumin Level 3.6 g/dL (3.5-5.2); Alkaline Phosphatase 72 IU/L (40-130); Aspartate Amino Transferase 21 U/L (0-40); Blood Urea Nitrogen 15 mg/dL (8-23); Calcium 9.4 mg/dL (8.5-10.5); Carbon Dioxide 26 mmol/L (22-29); Chloride 100 mmol/L (98-107); Globulin 3.1 g/dL (1.3-4.6); Glucose 110 mg/dL (65-115); Osmolality Calculated 281 mOsm/kg (285-295); Sodium 135 mmol/L (136-145); Total Bilirubin 0.2 mg/dL (0.15-1.2); Total Protein 6.7 g/dL (6.6-8.7)
[2020-05-01 15:27] LABS: Anion Gap 13.5 (5-19); Potassium 4.5 mmol/L (3.5-5.1)
--- NOTE | 2020-05-01 17:28 | ONC FU_ITS ---
Dr. Jefferson follow up note Patient: Rubén Vicente Unit #: [id number]: 1945 Dicatated By: Galindo eJfferson M.D.Date of Visit:May 01, 2020 Onc Med Follow-up/Prog Note History of Present Illness: Mr. Rubén Vicente, is a 75-year-old gentleman, who in the last week of December 2019 developed progressive headaches for which he underwent MRI scan of the brain on January 17 2020 which showed 3 enhancing lesions with surrounding edema involving the left side of brainstem at the level of katy. There is edema involving portion of anterior left side of cerebellum. Fourth ventricle demonstrates mild mass-effect from the edema. Supratentorially there is an enhancing lesion in the right thalamus with a large amount of surrounding edema causing midline shift from left to right approximately 4 to 5 mm. There is an enhancing lesion with a surrounding edema involving cortex and deep white matter right occipital lobe. As per pulmonology note patient underwent CT scan of chest which showed large mass measuring 6.5 x 5.1 x 5.3 cm left upper lobe and also another nodule in the same lobe. Patient underwent bronchoscopy with transbronchial biopsy on February 15, 2020 which showed poorly differentiated adenocarcinoma, favor lung region as immunohistochemistry stains were positive for TTF-1, Napsin, CK cocktail, CK7, and negative for PSA, p63, synaptophysin, CK20, CK 5/6 and chromogranin A and CDX2. Patient denies any hemoptysis or hematemesis, denies any bony pains, denies any jaundice, denies any focal weakness, denies any dysphagia. But lost about 10 pounds in the last couple of months. Patient has history of prostate cancer diagnosed in April 2015, [place] score was [address] scan of abdomen/pelvis and bone scan shows no evidence of metastatic disease, being high risk, at that time he was treated with Eligard and radiation therapy patient continue to take Eligard every 3 months and the last dose was given in December 2019 Patient has history of smoking for 50 years but quit smoking in December 2019, history of alcohol use, mostly beer only. Patient denies any fever chills, denies any nausea or vomiting denies any diarrhea or constipation, denies any shortness of breath. Appetite is good. He is alert and oriented but complaining of progressive worsening of handwriting and questionable memory loss but no seizure-like activity.Or focal weakness As patient was having worsening of handwriting and questionable memory loss,, he was started on dexamethasone as his MRI scan of the brain done on January 17, 2020 showed brain mets and he was referred to radiation oncology for evaluation and patient received 30 Gy from March 03, 2020 till March 18, 2020, tolerated well and now on tapering dose of dexamethasone also had CT PET scan done on March 01, 2020 showed 4 x 4.6 x 3.8 cm left upper lobe mass with central necrosis with SUV of 12.8 and second solid nodule in the left upper lobe measuring 1.2 x 0.9 cm FDG negative and local metastatic disease is present in the superior left hilar node measuring 1.3 cm with SUV of 5.2 and questionable uptake in the subaortic node is likely reactive. Came for follow-up, denies any specific complaints, no fever chills, no nausea or vomiting, no diarrhea constipation, no headaches blurred vision double vision, no seizure-like activity. As per patient last Tuesday he had near syncopal attack and went to emergency room where CT scan of head and chest was recommended but patient declined and his lab work-up was normal. Patient had no more episode since then, no palpitation, no seizure-like activity, no blurred vision or double vision. Patient came to clinic to discuss about his next generation sequencing results but we were informed by lab that tissue was received on April 25, 2019 although requisition was sent in mid March 2020 so it will take another 2 weeks before we get the reports. Medications: Dexamethasone 1 Tablet (of 4 mg) Oral daily Allergies: No Known Allergies. Review of Systems: Constitutional - Appetite is diminished and weight is stable. No fever, night sweats, or hot flashes. Energy level is fair, ENMT - No sinus congestion/drainage. Positive for mouth sores. No sore throat or difficulty swallowing, Hematologic/Lymphatic - No abnormal bruising or bleeding, Respiratory - No shortness of breath. No cough. No pleuritic pain or hemoptysis, Cardiovascular - No angina pain. No palpitations, Gastrointestinal - No nausea or vomiting. No heartburn or acid reflux. No diarrhea or constipation. No blood in the stool or black stools, Genitourinary (M) - No dysuria or hematuria. No urinary frequency. No urgency or incontinence, Musculoskeletal - No joint or bone pain, Neurologic - No headache. Positive for dizziness. No numbness or tingling. No other focal neurologic symptoms, Psychiatric - No anxiety or depression. Positive for insomnia. Vital Signs: Performed on May 01, 2020 15:53 Height - 72.00 in Weight - 185.0 lbs (HIGH) BSA - 2.06 sq.m BMI - 25.09 Temperature - 97.4 F (LOW) Pulse - 74 /min Respiration - 16 /min BP - 124/69 mm(hg) O2 Sat - 96 % Pain - 0 Performance Status: 1 - No physically strenuous activity, but ambulatory and able to carry out light or sedentary work (e.g. office work, light house work). (ECOG) Physical Examination: ENMT - No mouth sores, no thrush, no jaundice, Respiratory - Lungs are clear to auscultation, Cardiovascular - Regular rate and rhythm of heart, Abdomen - Soft, bowel sounds present, Extremities - No visible edema. Lab/Imaging: Test performed on Mar 27, 2020 11:42 Magnesium 2.2 mg/dL Sodium 135 mmol/L Potassium 4.7 mmol/L Chloride 99 mmol/L CO2 29 mmol/L Anion Gap 11.7 BUN 16 mg/dL Creatinine 0.8 mg/dL Cr Clearance (Est) 94.39 mL/min Glucose 140 mg/dL Osmolality - Calculated 283 mOsm/kg Calcium 9.4 mg/dL Protein, Total 6.8 g/dL Albumin 3.7 g/dL Globulin 3.1 g/dL Bilirubin, Total 0.3 mg/dL ALT (SGPT) 28 U/L AST (SGOT) 24 U/L Alkaline Phosphatase 69 IU/L WBC 6.4 10 3/uL RBC 5.05 10 6/uL HGB 14.9 g/dL HCT 46.4 % MCV 91.9 fL MCH 29.5 pg MCHC 32.1 g/dL RDW 16.2 % Platelet Count 180 10 3/cmm MPV 9.5 fL Neutrophils 5.73 10 3/uL Lymphocytes 0.3 10 3/uL Monocytes 0.2 10 3/uL Eosinophils 0.0 10 3/uL Basophils 0.0 10 3/uL Neutrophil % 89.3 % Lymphocyte % 3.9 % Monocyte % 3.7 % Eosinophil % 0.2 % Basophils % 0.3 % NRBC % 0 % Impression: 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 Local metastatic disease is present in the superior left hilar node measuring 1.3 cm with SUV of 5.2. History of prostate cancer, high risk diagnosed in April 2015, with negative CT scan of abdomen pelvis and bone scan but high Kyung score, being high risk patient status post ADT/radiation therapy followed by Susanna every 3-month till December 2018 Plan: .Discussed with patient regarding his labs white blood count 7.7 hemoglobin 13.2 hematocrit 41.4 platelets 201,000 CMP within normal limits Clinically, patient is doing well with no new signs symptom suggestive of disease progression, last week he had episode of near syncopal attack for which he was evaluated by ER physician but since then no more incident. Patient's follow-up lab work-up is within normal range and now awaiting next generation sequencing to identify targetable mutations and PD-L1 status. Patient return to clinic in 2 weeks for further discussion Signed By: Galindo Jefferson M.D. <<Signature on File>>
--- NOTE | 2020-05-15 14:16 | ONC FU_ITS ---
Dr. Jefferson follow up note Patient: Rubén Vicente Unit #: [id number]: 1945 Dicatated By: Galindo Jefferson M.D.Date of Visit:May 15, 2020 Onc Med Follow-up/Prog Note History of Present Illness: Mr. Rubén Vicente, is a 75-year-old gentleman, who in the last week of December 2019 developed progressive headaches for which he underwent MRI scan of the brain on January 17 2020 which showed 3 enhancing lesions with surrounding edema involving the left side of brainstem at the level of katy. There is edema involving portion of anterior left side of cerebellum. Fourth ventricle demonstrates mild mass-effect from the edema. Supratentorially there is an enhancing lesion in the right thalamus with a large amount of surrounding edema causing midline shift from left to right approximately 4 to 5 mm. There is an enhancing lesion with a surrounding edema involving cortex and deep white matter right occipital lobe. As per pulmonology note patient underwent CT scan of chest which showed large mass measuring 6.5 x 5.1 x 5.3 cm left upper lobe and also another nodule in the same lobe. Patient underwent bronchoscopy with transbronchial biopsy on February 15, 2020 which showed poorly differentiated adenocarcinoma, favor lung region as immunohistochemistry stains were positive for TTF-1, Napsin, CK cocktail, CK7, and negative for PSA, p63, synaptophysin, CK20, CK 5/6 and chromogranin A and CDX2. Patient denies any hemoptysis or hematemesis, denies any bony pains, denies any jaundice, denies any focal weakness, denies any dysphagia. But lost about 10 pounds in the last couple of months. Patient has history of prostate cancer diagnosed in April 2015, Independence score was [address] scan of abdomen/pelvis and bone scan shows no evidence of metastatic disease, being high risk, at that time he was treated with Eligard and radiation therapy patient continue to take Eligard every 3 months and the last dose was given in December 2019 Patient has history of smoking for 50 years but quit smoking in December 2019, history of alcohol use, mostly beer only. Patient denies any fever chills, denies any nausea or vomiting denies any diarrhea or constipation, denies any shortness of breath. Appetite is good. He is alert and oriented but complaining of progressive worsening of handwriting and questionable memory loss but no seizure-like activity.Or focal weakness As patient was having worsening of handwriting and questionable memory loss,, he was started on dexamethasone as his MRI scan of the brain done on January 17, 2020 showed brain mets and he was referred to radiation oncology for evaluation and patient received 30 Gy from March 03, 2020 till March 18, 2020, tolerated well and now on tapering dose of dexamethasone also had CT PET scan done on March 01, 2020 showed 4 x 4.6 x 3.8 cm left upper lobe mass with central necrosis with SUV of 12.8 and second solid nodule in the left upper lobe measuring 1.2 x 0.9 cm FDG negative and local metastatic disease is present in the superior left hilar node measuring 1.3 cm with SUV of 5.2 and questionable uptake in the subaortic node is likely reactive. Molecular profiling Reported on May 13, 2020 confirmed PD-L1 (22 c3) positive, TPS 15% means benefit from pembrolizumab and PD-L1 (28???8), positive 1+ , 25% means benefit from nivolumab/ipilimumab Rest ALK, EGFR, K-john, BRAF ROS1 MET, all negative Came for follow-up, denies any specific complaints, no fever chills, no nausea or vomiting, no diarrhea constipation, no headaches blurred vision double vision. No hemoptysis or hematemesis, no dysphagia, no new bony pains, appetite is reasonable Medications: Dexamethasone 1 Tablet (of 4 mg) Oral daily Allergies: No Known Allergies. Review of Systems: Constitutional - Appetite is diminished and weight is stable. No fever, night sweats, or hot flashes. Energy level is fair, ENMT - No sinus congestion/drainage. Positive for mouth sores. No sore throat or difficulty swallowing, Hematologic/Lymphatic - No abnormal bruising or bleeding, Respiratory - No shortness of breath. No cough. No pleuritic pain or hemoptysis, Cardiovascular - No angina pain. No palpitations, Gastrointestinal - No nausea or vomiting. No heartburn or acid reflux. No diarrhea or constipation. No blood in the stool or black stools, Genitourinary (M) - No dysuria or hematuria. No urinary frequency. No urgency or incontinence, Musculoskeletal - No joint or bone pain, Neurologic - No headache. Positive for dizziness. No numbness or tingling. No other focal neurologic symptoms, Psychiatric - No anxiety or depression. Positive for insomnia. Vital Signs: Performed on May 15, 2020 10:45 Height - 72.00 in Weight - 183.4 lbs (LOW) BSA - 2.05 sq.m BMI - 24.87 Temperature - 95.8 F (LOW) Pulse - 93 /min Respiration - 16 /min BP - 157/78 mm(hg) (HIGH) O2 Sat - 98 % Pain - 0 Performance Status: 1 - No physically strenuous activity, but ambulatory and able to carry out light or sedentary work (e.g. office work, light house work). (ECOG) Physical Examination: ENMT - No mouth sores, no thrush, no jaundice, Respiratory - Lungs are clear to auscultation, Cardiovascular - Regular rate and rhythm of heart, Abdomen - Soft, bowel sounds present, Extremities - No visible edema. Lab/Imaging: Test performed on May 01, 2020 14:17 Sodium 135 mmol/L Potassium 4.5 mmol/L Chloride 100 mmol/L CO2 26 mmol/L Anion Gap 13.5 BUN 15 mg/dL Creatinine 0.6 mg/dL Cr Clearance (Est) 128.21 mL/min Glucose 110 mg/dL Osmolality - Calculated 281 mOsm/kg Calcium 9.4 mg/dL Protein, Total 6.7 g/dL Albumin 3.6 g/dL Globulin 3.1 g/dL Bilirubin, Total 0.2 mg/dL ALT (SGPT) 32 U/L AST (SGOT) 21 U/L Alkaline Phosphatase 72 IU/L WBC 7.7 10 3/uL RBC 4.42 10 6/uL HGB 13.2 g/dL HCT 41.4 % MCV 93.7 fL MCH 29.9 pg MCHC 31.9 g/dL RDW 16.4 % Platelet Count 201 10 3/cmm MPV 10.3 fL Neutrophils 6.59 10 3/uL Lymphocytes 0.6 10 3/uL Monocytes 0.4 10 3/uL Eosinophils 0.0 10 3/uL Basophils 0.0 10 3/uL Neutrophil % 85.6 % Lymphocyte % 7.8 % Monocyte % 4.9 % Eosinophil % 0.1 % Basophils % 0.3 % NRBC % 0 % Test performed on Mar 27, 2020 11:42 Magnesium 2.2 mg/dL Impression: 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 per transbronchial biopsy done on February 15, 2020 immunohistochemistry positive for TTF-1, Napsin, CK cocktail, CK7 and negative for PSA, p63, synaptophysin, CK20, CK 5/6 and CDX2, chromogranin A MRI scan of the brain done on January 17, 2020 shows brain mets,Status post radiation therapy completed on March 18, 2020 clinical stage IV, Molecular profiling reported on May 13, 2020 is positive for PD-L1 (22c3), TPS 15% indicate benefit from pembrolizumab and PD-L1 (28???8) positive , 1+, 25% indicate benefit from nivolumab/ipilimumab combination And negative for ALK, BRAF, EGFR, ROS1, K-john,, MSI stable, tumor mutational burden 7% which is low. NTRK indeterminate CT PET scan done on March 01, 2020 showed hypermetabolic left upper lobe mass 4 x 4.6 x 3.8 cm and a second solid nodule in the left upper lobe measuring 1.2 x 0.9 cm is FDG negative. Local metastatic disease is present in the superior left hilar node measuring 1.3 cm with SUV of 5.2. History of prostate cancer, high risk diagnosed in April 2015, with negative CT scan of abdomen pelvis and bone scan but high Independence score, being high risk patient status post ADT/radiation therapy followed by Susanna every 3-month till December 2018 Plan: Discussed with patient regarding his disease status and recently obtained molecular profiling report which confirmed negative for ALK, EGFR, ROS1, K-john, BRAF, MET but positive for PD-L1 with that information, we would consider chemo immunotherapy with pembrolizumab/carboplatin/Alimta every [address] PET scan after third cycle to assess the response All the side effects possible benefits associated with chemoimmunotherapy including but not limited to bone marrow suppression, nausea vomiting, hair loss, endocrinopathy/allergic reaction, pneumonitis, colitis, hepatic toxicity especially with immunotherapy were mentioned, further teaching will done by chemotherapy nurse. We will obtain approval from his insurance prior to the treatment and also request for Port-A-Cath placement and patient will return to clinic 1 week after chemo immunotherapy initiation with CBC CMP. Signed By: Galindo Jefferson M.D. <<Signature on File>>
== END 2020-05-18 23:59 | disposition home or self-care (01) ==
LOC: ONCMED 05:32
PROVIDERS: PCP Family Medicine; Visit Provider Internal Medicine Hematology & Oncology
DX: C34.12 Malignant neoplasm of upper lobe, left bronchus or lung (principal); C77.1 Secondary and unspecified malignant neoplasm of intrathoracic lymph nodes; C79.31 Secondary malignant neoplasm of brain; Z85.46 Personal history of malignant neoplasm of prostate; Z92.3 Personal history of irradiation; Z87.891 Personal history of nicotine dependence
CPT/HCPCS: 36415; 80053; 85025; 99214; 99215

== ENCOUNTER → 2020-06-12 11:25 | Outpatient (BNVA) | payer OTHER, SELFPAY | PROVIDERS: PCP Family Medicine; Visit Provider Surgery | DX: C34.92 Malignant neoplasm of unspecified part of left bronchus or lung (principal) | CPT/HCPCS: 87635 ==

== ENCOUNTER 2020-06-16 07:56 | Day surgery (SDC) | payer OTHER, SELFPAY ==
[2020-06-13 13:13] VITALS: BMI 25.4
[2020-06-16] MEDS: sodium chloride 0.9% 1,000 ML 30 ML (08:37)
--- NOTE | 2020-06-16 09:04 | W.PM.OPSUD ---
Surgery/Procedure H&P Update DATE OF PROCEDURE: June 16, 2020 DATE H&P PERFORMED: 06/10/20 H&P UPDATE INFORMATION: I have reviewed H&P completed within last 30 days, I have examined patient prior to procedure and No changes to prior documentation PREOP DIAGNOSIS: Lung cancer PLANNED PROCEDURE: Operation Date: 06/16/20 09:30 Proposed Procedures p Portacath Placement 82094 C34.92(Not Applicable) - Marky Tavares MD
--- NOTE | 2020-06-16 09:22 | ANES.PREANE2 ---
Pre-Anesthetic Assessment Pre-Anesthetic Assessment: Height/Weight: Height 1.83 m Weight 85.275 kg Preop Diagnosis: Lung cancer Proposed Procedure: Operation Date: 06/16/20 09:30 Proposed Procedures p Portacath Placement 29873 C34.92(Not Applicable) - Marky aTvares MD Familial anesthetic complications: None Was Beta Naa taken within 24 hours: N/A Last intake: Intake Last Liquid Date 06/15/20 Last Liquid Time 22:00 Last Solid Date 06/15/20 Last Solid Time 22:00 Social: Social History: No alcohol and No tobacco Comment: former smoker Airway: Cervical ROM: WNL MP: 2 Dentition: Other (no teeth) Pulmonary: Pulmonary: COPD Comments: Lung cancer (L upper lobe) CV/HEM: CV/HEM: HTN Hepatic: Hepatic: Hepatitis (hep C) Anesthetic Plan: ASA status: 4 Anesthesia: MAC Risk of > 500 ml blood loss (7ml/kg in children): No PFSH Anesthesia PFSH: Medical History (Updated 06/10/20 @ 14:03 by Marky Tavares MD) Chronic viral hepatitis C COPD (chronic obstructive pulmonary disease) DDD (degenerative disc disease) Ganglion cyst HTN (hypertension) Malignant neoplasm of prostate Malignant neoplasm of upper lobe, left bronchus or lung Scalp mass Surgical History History of surgical removal of ganglion cyst Hx of tonsillectomy Family History Father CAD (coronary artery disease) Cancer Social History Smoking and tobacco status: former smoker Quit status (tobacco): has quit using tobacco Year quit tobacco: 2020 - Hx of 1PPD x 50 Y Second hand smoke exposure: Yes Alcohol intake: former Lives independently: Yes Household members: spouse Marital status: Current occupational status: retired History of recent travel: No Current gender identity: Male Data Anesthesia Cardiac Studies: No Data to Display
--- NOTE | 2020-06-16 10:26 | SC_ITS ---
WS: [id number] C-ARM RADIOGRAPHS CHEST; 2 IMAGES HISTORY: SURGERY COMPARISON: None available. Intraoperative imaging during Mediport placement with tip in the distal SVC. SC/C-arm FL for CVA [id number] IMPRESSION: Intraoperative imaging during Mediport placement.
--- NOTE | 2020-06-16 10:26 | SCC_ITS ---
Procedure Done: Placement of PowerPort in the right subclavian vein Fluoroscopic guidance and interpretation for placement of catheter 22.3 seconds of fluoroscopic guidance, for a cumulative dose of 2.60 mGy, was provided to Dr. Ernst by the radiology department. C-arm images of the chest were saved for the patient's permanent record. [facility]
[2020-06-16] MEDS: heparin, porcine 1,000 unit/mL INJ 10 mL 10000 UNIT IRRIGATION ×2 (10:58→11:08)
[2020-06-16] MEDS: lidocaine 1% INJ 20 mL SUBCUT (10:59)
[2020-06-16] MEDS: neomycin-poly-bacitracin oint 28 gm 1 APPLIC TOPICAL (11:00)
[2020-06-16 11:15] VITALS: BP 121/64; PULSE 52; RESP 18; TEMP 36.1; O2SAT 98
--- NOTE | 2020-06-16 11:17 | P.PCN_ITS ---
PACU note PACU note: VSS, Good respiratory effort, report to [employer]'S AIDE Post-Anesthesia Exam: awake
--- NOTE | 2020-06-16 11:17 | PM.PACU ---
PACU note PACU note: VSS, Good respiratory effort, report to [employer] Post-Anesthesia Exam: awake
[2020-06-16 11:20] VITALS: BP 124/66; PULSE 50; RESP 18; O2SAT 98
[2020-06-16 11:25] VITALS: BP 135/73; PULSE 57; RESP 18; O2SAT 97
--- NOTE | 2020-06-16 11:25 | PM.OP ---
Operative Report Date of procedure: June 16, 2020 Pre-op Diagnosis: Lung cancer Post-op diagnosis: same Procedure Done: Placement of PowerPort in the right subclavian vein Fluoroscopic guidance and interpretation for placement of catheter Pathology: none sent Surgeon: Marky Tavares Anesthesia: MAC Condition: stable Disposition: PACU Procedure: The patient was taken to the Operating Room and the chest and neck bilaterally were prepped and draped in a sterile manner after the antibiotic had been administered and shoulder rolls had been placed. A total of 10 mL of 1% lidocaine with 0.5% Marcaine was infiltrated under the clavicle on the right side at the site of the planned entry into the subclavian vein. An introducer needle was then used to access the subclavian vein under the clavicle and after withdrawing blood syringe was removed and a guidewire passed under fluoroscopy into the superior vena cava. The site of the planned port was then marked on the chest and a 15 blade was used to make a 3 cm skin incision this was extended into the subcutaneous tissue using electrocautery and a subcutaneous pocket over the pectoralis fascia was created 2-0 Vicryl suture was used to suture the port to the pectoral fascia in the pocket on 3 sides. The catheter, after having been flushed with hep saline, was attached to the tunneler and a tunnel created between the port site and the subclavian vein entry site. Under fluoroscopy the dilator sheath was passed over the guidewire into the proximal superior vena cava. The inner dilator was removed and the sheath left behind and~ the catheter was introduced through the peel-away sheath with the tip in the superior vena cava. The peel-away sheath was removed. The proximal end of the catheter was cut to the right size and was attached to the port. Using a Luna needle the port was accessed, it withdrew blood easily and flushed easily. A final 5cc of heparin was used to flush the PowerPort. The subcutaneous tissue was approximated using interrupted 3-0 Vicryl sutures and the skin at the introducer site and the port site was closed using subcuticular running 4-0 Monocryl sutures. Surgical glue was applied and the patient was stable throughout the procedure. Fluoroscopic guidance and interpretation was performed for introduction of the guidewire in the right subclavian vein, passage of dilator and placement of catheter tip in the distal superior vena cava.
--- NOTE | 2020-06-16 11:28 | SUR.PHASEI ---
PT AWAKE ALERT WANTS TO GET SOMETHING TO DRINK, PT VERBALLY DENIES PAIN AND NAUSEA, VSS RT UPPER CHEST SITE D/I WITH EXOFIN X 2 SITES NO BLEEDING OR HEMATOMA NOTED.
[2020-06-16 11:30] VITALS: BP 122/64; PULSE 51; RESP 18; TEMP 36.4; O2SAT 97
[2020-06-16 12:00] VITALS: BP 135/74; PULSE 48; RESP 18; O2SAT 98
--- NOTE | 2020-06-16 18:04 | ANE.PACU2 ---
Inpatient post-anesthesia follow up: Airway intact: Yes Vital signs: Temperature 97.5 F Pulse Rate 48 Respiratory Rate 18 Blood Pressure 135/74 Pulse Oximetry 98 Oxygen Delivery Me thod Room Air Oxygen Flow Rate Fraction of Inspir ed Oxygen Hydration adequate: Yes Nausea and vomiting: No Pain level: 3 Mental status: Baseline
== END 2020-06-16 12:18 | disposition home or self-care (01) ==
PROVIDERS: PCP Family Medicine; Visit Provider Surgery
PROC: (CPT 36561; principal; 2020-06-16 09:25)
DX: C34.92 Malignant neoplasm of unspecified part of left bronchus or lung (principal); J44.9 Chronic obstructive pulmonary disease, unspecified; I10 Essential (primary) hypertension; Z87.891 Personal history of nicotine dependence; M19.90 Unspecified osteoarthritis, unspecified site; Z85.46 Personal history of malignant neoplasm of prostate
CPT/HCPCS: 36561; 76000; 77001; C1788; J0690; J1644; J2704; J3010; J3490; J7030

== ENCOUNTER 2020-06-26 08:54 | Outpatient (CLI) | payer OTHER, SELFPAY ==
[2020-06-26 09:43] LABS: Basophils % 0.1 %; Hemoglobin 12.5 g/dL (11.7-16.6); Lymphocytes # 0.8 10^3/uL (0.8-4.8); Lymphocytes % 5.2 %; Mean Corpuscular HGB Conc 32.9 g/dL (30.0-36.0); Mean Corpuscular Hemoglobin 30.9 pg (28.0-34.0); Mean Corpuscular Volume 94.1 fL (80-94); Mean Platelet Volume 9.6 fL (7.4-10.4); Monocytes # 0.6 10^3/uL (0.2-0.9); Monocytes % 4.4 %; Neutrophils % 87.6 %; Nucleated Red Blood Cells % 0 %; Platelet Count 264 10^3/cmm (130-400); Red Blood Count 4.04 10^6/uL (4.1-5.3); Red Cell Distribution Width 14.9 % (12.1-15.1); White Blood Count 14.3 10^3/uL (4.0-10.0)
[2020-06-26 10:29] LABS: Alanine Aminotransferase 37 U/L (0-41); Albumin Level 3.6 g/dL (3.5-5.2); Alkaline Phosphatase 99 IU/L (40-130); Anion Gap 14.3 (5-19); Aspartate Amino Transferase 23 U/L (0-40); Blood Urea Nitrogen 17 mg/dL (8-23); Carbon Dioxide 24 mmol/L (22-29); Chloride 102 mmol/L (98-107); Glucose 101 mg/dL (65-115); Osmolality Calculated 284 mOsm/kg (285-295); Potassium 4.3 mmol/L (3.5-5.1); Sodium 136 mmol/L (136-145); Thyroid Stimulating Hormone 0.94 uIU/mL (0.27-4.20); Total Bilirubin 0.3 mg/dL (0.15-1.2); Total Protein 6.6 g/dL (6.6-8.7)
[2020-06-26] MEDS: sodium chloride 0.9% 250 ML 75 ML IV (11:25)
[2020-06-26] MEDS: famotidine 20 mg/2 mL INJ IVP (11:30)
[2020-06-26] MEDS: cyanocobalamin 1,000 mcg/mL SDV 1000 MCG SUBCUT (11:33)
[2020-06-26] MEDS: diphenhydrAMINE 50 mg/mL SDV 1mL 25 MG IV (11:33)
[2020-06-26] MEDS: palonosetron 0.25 mg/5 mL SDV IV (11:35)
[2020-06-26] MEDS: fosaprepitant 150 MG in sodium chloride 0.9% 150 ML 300 MG IV (11:55)
--- NOTE | 2020-07-10 19:46 | ONC FU_ITS ---
[facility] Patient Note Patient: Rubén Vicente Unit #: [id number]: 1945 Dictated By: Bruno SantamariaDate of Visit: Jun 26, 2020 Onc MED Follow-Up/Prog Note Chief Complaint: Metastatic lung cancer with brain mets History of Present Illness: Mr. 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 In December 2019 he developed progressive headaches and eventually underwent MRI scan of the brain January 17, 2020. This did show 3 enhancing lesions with surrounding edema involving the left side of the brainstem at the level of the katy. There was edema involving portion of the anterior left side cerebellum. The fourth ventricle demonstrated mild mass-effect from the edema. Supratentorially there was an enhancing lesion in the right thalamus with a large amount of surrounding edema causing midline shift from left to right???approximately 4 to 5 mm. There was an enhancing lesion with surrounding edema involving the cortex and deep white matter of the right occipital lobe. Mr. Vicente underwent CT scan of the chest which showed a large mass measuring 6.5 x 5.1 x 5.3 cm in the left upper lobe and also another nodule in the same lobe. He underwent bronchoscopy with transbronchial biopsy on February 15, 2020. The pathology showed poorly differentiated adenocarcinoma, favor lung region as immunohistochemistry stains were positive for TTF-1???1, Napsin, CK cocktail, CK7 and negative for PSA, p63, synaptophysin, CK20, CK 5/6 and chromogranin A as well as CDX2. Mr. Vicente reported that he had not had any hemoptysis or hematemesis. He denied any bone pain or any jaundice. He had no trouble swallowing. But he had lost about 10 pounds in the months prior to the work-up. Mr. Vicente has a history of prostate cancer diagnosed in April 2015. The Easton score was [address] scan of the abdomen pelvis and bone scan did not show any evidence of metastatic disease at that time. As he was high risk he was treated with Eligard and radiation therapy. He did continue taking Eligard every 3 months and the last dose was given in December 2019. Mr. Vicente has a smoking history of 50 years but states he quit in December 2019. He does have a history of alcohol use but mostly beer only. Mr. Vicente underwent radiation for his brain metastasis. He had been having worsening of his handwriting and questionable memory loss. He did start on dexamethasone on January 17, 2020 as the MRI was positive for brain mets. He then was referred to radiation oncology. He is received a total of 30 cGy from March 03, 2020 until March 18, 2020. He tolerated it well and was able to taper down the dexamethasone. He did have a PET CT scan on March 01, 2020 which showed a 4 x 4.6 x 3.8 left upper lobe mass with central necrosis with an SUV of 12.8 and a second solid nodule in the left upper lobe measuring 1.2 x 0.9 cm. This was FDG negative. Local metastatic disease was present in the superior left hilar node measuring 1.3 cm with an SUV of 5.2. There was questionable uptake in the subaortic node that was felt to be likely reactive . Molecular profiling reported on May 13, 2020 confirmed PD-L1 (22 C3) positive, TPS 15% which equates benefit from pembrolizumab. He did have PD-L1 (28???8) positive at 1+ which equated to 25% benefit from nivolumab/ipilimumab. He was negative for ALK, EGFR, KRAS, BRAF, ROS1 and MET. Mr. Vicente is followed with Dr. Jefferson and has been offered treatment with chemo immunotherapy with agents being pembrolizumab/carboplatin/Alimta every 3 weeks with a plan to repeat the PET CT imaging after the third cycle to assess response. He is here today for follow-up and initiate his first cycle of treatment. He has no new concerns today. He denies any headaches, vision changes or any memory loss. He denies any other neurological changes. He has had no further problems with his handwriting. He denies any pain. He states his breathing is about the same as always. Has had no hemoptysis. He denies any fever or chills. He states his energy is fair for him and his appetite is normal. He denies any further weight loss. He denies any diarrhea or constipation. He states his bowel and bladder are normal for him. He denies any lower extremity edema or pain. His ECOG is 1. Past Medical History: Hepatitis C Hypertension Cancer (Prostate) in 2016 Past Surgical History: Colonoscopy Transrectal Prostate Ultrasound & Prostate Biopsy in 2016 Allergies: No Known Allergies. Medications: Cholecalciferol 1 Tablet (of 100 mcg ) Oral daily Dexamethasone 1 Tablet (of 4 mg) Oral daily Folic Acid 1 Tablet (of 400 mcg) Oral daily Multivitamin 1 Tablet Oral daily Family History: Mr. Vicente's mother is alive: Melanoma Cancer. Mr. Vicente's father is : Cancer. Social History: Mr. Vicente is legally and he is retired. Mr. Vicente no longer smokes but had smoked 1.0 pack/day for 55 years. He drinks occasionally. He consumes 6 drinks/day 4 days/week. He has indicated exposure to the following products: cigarettes, beer, and marijuana. Occasional marijuana use. Review Of Symptoms: Constitutional Denies fevers, chills, night sweats, excessive fatigue or weight loss. Allergic/Immunologic No reactions. Eyes Denies significant visual changes. No diplopia. No amaurosis. ENMT Denies changes in hearing, sore throat, mouth sores, difficulty or changes in swallowing ability, and/or sinus drainage. Hematologic/Lymphatic Denies easy bruising or bleeding. The patient denies any tender or palpable lymph nodes. Respiratory Denies dyspnea on exertion, chest pain, cough or hemoptysis. Denies orthopnea. Cardiovascular Denies anginal chest pain, palpitations or orthopnea. Gastrointestinal Denies nausea, vomiting, diarrhea, GI bleeding, or constipation. Denies change in bowel habits and/or stool color, no heartburn or early satiety. Genitourinary (M) Denies hematuria, dysuria, increased frequency, urgency, hesitancy or incontinence. Musculoskeletal Denies joint pain, swelling or redness. No decreased range of motion. Integumentary Denies chronic rashes, inflammation, ulcerations or skin changes. Neurologic Denies headache, blurred vision, and no areas of focal weakness or numbness. Normal gait. No sensory problems. Psychiatric Denies insomnia, depression, lc or mood swings. Vital Signs: Performed on Jun 26, 2020 10:39 Height - 72.00 in Weight - 187.8 lbs (HIGH) BSA - 2.07 sq.m BMI - 25.47 Temperature - 98.1 F (LOW) Pulse - 7 /min (LOW) Respiration - 19 /min BP - 123/80 mm(hg) O2 Sat - 97 % Pain - 0,1 - No physically strenuous activity, but ambulatory and able to carry out light or sedentary work (e.g. office work, light house work). (ECOG) Physical Examination: Constitutional Alert, oriented, no acute distress. Skin pink, warm and dry. Head Normocephalic; atraumatic. Eyes Conjunctivae and sclerae are clear and without icterus. Pupils are reactive and equal. Neck Supple without masses or thyromegaly. No jugular venous distension. Hematologic/Lymphatic No petechiae or purpura. No tender or palpable lymph nodes in the cervical or supraclavicular areas. Respiratory Lungs are clear to auscultation without rhonchi or wheezing. Cardiovascular Regular rate and rhythm of heart without murmurs,clicks, gallops or rubs. Abdomen Non-tender, non-distended, no masses or ascites. Good bowel sounds noted in all quads. No guarding or rebound tenderness. No pulsatile masses. Back/Spine Non-tender to palpation. Extremities No visible deformities, no cyanosis, clubbing or edema. Musculoskeletal No tenderness or swelling, normal range of motion without obvious weakness. Integumentary No rashes or lesions. Neurologic No sensory or motor deficits, normal cerebellar function, normal gait. Psychiatric Alert and oriented times three. Coherent speech. Verbalizes understanding of our discussions today. Laboratory:Test performed on Jun 26, 2020 09:20 Sodium 136 mmol/L TSH 0.94 uIU/mL Potassium 4.3 mmol/L Chloride 102 mmol/L CO2 24 mmol/L Anion Gap 14.3 BUN 17 mg/dL Creatinine 0.6 mg/dL Cr Clearance (Est) 127.1000 mL/min Glucose 101 mg/dL Osmolality - Calculated 284 mOsm/kg Calcium 9.0 mg/dL Protein, Total 6.6 g/dL Albumin 3.6 g/dL Globulin 3.0 g/dL Bilirubin, Total 0.3 mg/dL ALT (SGPT) 37 U/L AST (SGOT) 23 U/L Alkaline Phosphatase 99 IU/L WBC 14.3 10 3/uL RBC 4.04 10 6/uL HGB 12.5 g/dL HCT 38.0 % MCV 94.1 fL MCH 30.9 pg MCHC 32.9 g/dL RDW 14.9 % Platelet Count 264 10 3/cmm MPV 9.6 fL Neutrophils 12.50 10 3/uL Lymphocytes 0.8 10 3/uL Monocytes 0.6 10 3/uL Eosinophils 0.0 10 3/uL Basophils 0.0 10 3/uL Neutrophil % 87.6 % Lymphocyte % 5.2 % Monocyte % 4.4 % Eosinophil % 0.0 % Basophils % 0.1 % NRBC % 0 % Impression: 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 per transbronchial biopsy done on February 15, 2020 immunohistochemistry positive for TTF-1, Napsin, CK cocktail, CK7 and negative for PSA, p63, synaptophysin, CK20, CK 5/6 and CDX2, chromogranin A MRI scan of the brain done on January 17, 2020 shows brain mets,Status post radiation therapy completed on March 18, 2020 clinical stage IV, Molecular profiling reported on May 13, 2020 is positive for PD-L1 (22c3), TPS 15% indicate benefit from pembrolizumab and PD-L1 (28???8) positive , 1+, 25% indicate benefit from nivolumab/ipilimumab combination And negative for ALK, BRAF, EGFR, ROS1, K-john,, MSI stable, tumor mutational burden 7% which is low. NTRK indeterminate CT PET scan done on March 01, 2020 showed hypermetabolic left upper lobe mass 4 x 4.6 x 3.8 cm and a second solid nodule in the left upper lobe measuring 1.2 x 0.9 cm is FDG negative. Local metastatic disease is present in the superior left hilar node measuring 1.3 cm with SUV of 5.2. History of prostate cancer, high risk diagnosed in April 2015, with negative CT scan of abdomen pelvis and bone scan but high Kyung score, being high risk patient status post ADT/radiation therapy followed by Susanna every 3-month till December 2018. Dr Jefferson discussed with Mr Vicente his disease status and recently obtained molecular profiling report. The molecular confirmed negative for ALK, EGFR, ROS1, K-john, BRAF, MET but positive for PD-L1 with that information, Dr Jefferson recommended chemo immunotherapy with pembrolizumab/carboplatin/Alimta every 3 weeks and repeat PET/CT scan after third cycle to assess the response. Mr. Vicente is here today for his first cycle of chemo/immunotherapy. Mr. Vicente had placement of a PowerPort in the right subclavian vein by Dr. Tavares on June 16, 2020. Plan: PROBLEMS ADDRESSED TODAY 1. Metastatic poorly differentiated adenocarcinoma left upper lung with brain mets. He completed radiation therapy for the brain metastasis on March 18, 2022 total dose of 30 cGy. A. Proceed with cycle 1 carboplatin Alimta pembrolizumab B. Labs from today reviewed in detail and discussed with Mr. Vicente and a copy was given to him. WBC 14.3, hemoglobin 12.5, platelets 264,000 ANC is 12,500. Potassium 4.3 creatinine 0.6 LFTs are normal baseline TSH is 0.94. C. His current treatment plan is 3 cycles of carboplatin and Alimta pembrolizumab and repeat PET CT imaging to assess response. D. He will have weekly interim counts and we will see him back in 3 weeks with CBC CMP TSH for consideration of cycle 2 chemo/immunotherapy. E. The patient was informed of chemotherapy plan and specific drugs were discussed. We also discussed how chemotherapy works and identified common side effects including alopecia; myelosuppression-including neutropenia, anemia, thrombocytopenia; peripheral neuropathy; fatigue; nausea; diarrhea; constipation; bleeding or bruising; skin changes; mouth sores; drug hypersensitivity/allergic reactions or anaphylaxis and extravasation. They have also been informed how to contact the clinic with side effects or symptoms, including but not limited to fever greater than 100.4???, chills, sore throat, bleeding or bruising that is not explained or mouth sores, cough, nasal discharge, diarrhea, constipation, nausea and/or vomiting not relieved with medications on hand at home, as well as any other concern or question they may have. Our hours are 8:00 a.m. to 4:30 p.m. on Tuesday through and 8-12:00 on Tuesday. However, someone is filtration plant mechanic 24 hours per day and they have been advised to contact the [facility] at if it is after hours. We have also discussed potential long-term side effects of chemotherapy including secondary cancers, infertility, pulmonary complications, cardiac complications, and again peripheral neuropathy. We have discussed that they certainly need to let us know before taking any antioxidants or herbal or further dietary supplements, as we are unsure of how these agents react with chemotherapy and we request that they avoid these products for now. They were informed that it is okay to take multivitamins at normal doses. They verbally state that they understand to take all medications as directed by their healthcare provider unless otherwise indicated. They also verbalized understanding to leave the pressure dressing on the intravenous administration site for at least two hours after treatment. Instructions for oral care with baking soda and salt water rinses as well as a guide for use of [id number] medication were provided with the treatment plan. They have been given a written patient treatment plan, of which a copy is in the chart, as well as specific drug information. They have no questions and verbalized understanding and are willing to proceed with chemotherapy at this time. F. Specific side effects of immunotherapy discussed included but not limited to: Infusion reactions such as anaphylaxis, hives, shortness of breath, difficulty swallowing, fever, chills, hypotension hypertension, tremors/shakes, and anxiety amongst others ??? pneumonitis: new or worsening cough; chest pain; and shortness of breath. ??? Colitis: diarrhea or more bowel movements than usual; blood in stools or dark, tarry, sticky stools; and severe stomach area (abdomen) pain or tenderness. ??? Encephalitis: confusion, headaches, mental status changes, disorientation * hepatitis: jaundice; severe nausea or vomiting; pain on the right side of the abdomen; drowsiness; dark urine; bleeding or bruise more easily than normal. ??? nephritis and kidney failure: including decrease in the amount of urine; hematuria; lower extremity edema; and loss of appetite. ??? thyroid and pituitary changes that may include: headaches that will not go away or unusual headaches; extreme tiredness, weight gain or weight loss; changes in mood or behavior, such as decreased sex drive, irritability, or forgetfulness; dizziness or fainting; hair loss; feeling cold; constipation; and voice gets deeper. ???rash; changes in eyesight; severe or persistent muscle or joint pains; and severe muscle weakness. The review of records prior to the visit; face to face review of plan of care, side effect identification and management, as well as where to call for questions or concerns; and post visit documentation was 60 minutes. Signed By: Bruno Santamaria-, AOCNP Galindo Jefferson MD <<Signature on File>>
== END 2020-06-26 08:55 | disposition home or self-care (01) ==
LOC: ONCMED 08:55
PROVIDERS: Internal Medicine Hematology & Oncology; PCP Family Medicine; Visit Provider Nurse Practitioner
DX: Z51.12 Encounter for antineoplastic immunotherapy (principal); Z51.11 Encounter for antineoplastic chemotherapy; C34.12 Malignant neoplasm of upper lobe, left bronchus or lung; C79.31 Secondary malignant neoplasm of brain; Z85.46 Personal history of malignant neoplasm of prostate; Z79.899 Other long term (current) drug therapy; Z92.3 Personal history of irradiation
CPT/HCPCS: 80053; 84443; 85025; 96367; 96372; 96375; 96413; 96417; 99215; J1100; J1200; J1453; J2469; J3420; J3490; J7050; J9045; J9271; J9305

== ENCOUNTER → 2020-07-01 11:54 | Outpatient (BNVA) | payer OTHER, SELFPAY | PROVIDERS: PCP Family Medicine; Visit Provider Internal Medicine Hematology & Oncology | DX: C34.12 Malignant neoplasm of upper lobe, left bronchus or lung (principal) | CPT/HCPCS: 80053; 84443 ==

== ENCOUNTER 2020-07-08 12:18 | Emergency (ER) | payer OTHER, SELFPAY ==
[2020-07-08 12:24] VITALS: BP 119/77; PULSE 97; RESP 18; TEMP 37.2; O2SAT 98; BMI 24.4
--- NOTE | 2020-07-08 13:45 | ED_ITS ---
HPI - General Adult General: Chief complaint: General Medical Stated complaint: dizzy,nosebleed, passed some blood in stool Time Seen by Provider: 07/08/20 13:27 History of Present Illness: HPI narrative: 75-year-old male presents emergency room complaining of bloody stools and bloody noses. He has lung cancer and has been receiving chemotherapy. His last treatment was 2 weeks ago. He is treatments every 3 weeks. He has had problems with constipation he drank mag citrate to relieve that resulting in some transient bloody stools which has resolved but he also has some episode episodes of epistaxis. He was told by his oncologist to go to the ER today to have this evaluated. He is not having any bloody stools now no active epistaxis at this time. He is not take any anticoagulants. Onset (ago): day(s) Relieving factors: none Exacerbating factors: none Associated symptoms: Reports decreased appetite, dyspnea, nausea, short of breath, syncope and weakness; Deny chest pain, confusion, cough, diaphoresis, fevers/chills, headache(s), malaise, rash, palpitations, seizures or vomiting Treatments prior to arrival: none Review of Systems Const: Denies: malaise or diaphoresis ENMT: Denies: throat pain, ear or mastoid pain, nasal discharge or nasal congestion Card: Denies: chest pain or palpitations Resp: Reports: dyspnea GI: Reports: nausea; Denies: vomiting : Denies: flank pain, dysuria, urinary frequency or urinary urgency Skin/Breast: Denies: rash Neuro: Denies: headache(s) or confusion PFSH ED PFSH: Medical History Chronic viral hepatitis C COPD (chronic obstructive pulmonary disease) DDD (degenerative disc disease) Ganglion cyst HTN (hypertension) Malignant neoplasm of prostate Malignant neoplasm of upper lobe, left bronchus or lung Scalp mass Surgical History History of surgical removal of ganglion cyst Hx of tonsillectomy Port-A-Cath in place (06/16/20) Family History Father CAD (coronary artery disease) Cancer Social History Smoking and tobacco status: former smoker Quit status (tobacco): has quit using tobacco Year quit tobacco: 2020 - Hx of 1PPD x 50 Y Second hand smoke exposure: Yes Alcohol intake: former Lives independently: Yes Household members: spouse Marital status: Current occupational status: retired History of recent travel: No Current gender identity: Male Physical Exam Const: COMMON NORMALS: no acute distress GENERAL APPEARANCE: cooperative and comfortable ORIENTATION/CONSCIOUSNESS: Yes awake, Yes oriented to person, Yes oriented to place and Yes oriented to time HENMT: COMMON NORMALS: normocephalic, atraumatic and hearing grossly normal bilaterally HEAD & SCALP: normocephalic and atraumatic Neck/C-Spine: COMMON NORMALS: no JVD Resp: AUSCULTATION: rales, wheezes and diminished lung sounds Cardio: COMMON NORMALS: no JVD, regular rate, regular rhythm and No murmurs present (Cardio) RATE: regular rate RHYTHM: regular rhythm GI: COMMON NORMALS: Soft to palpation and No hepatosplenomegaly present AUSCULTATION: Yes normoactive bowel sounds PALPATION: Yes Soft to palpation, No Tenderness to palpation present (GI), No Guarding due to palpation present (GI) and Yes No hepatosplenomegaly present Extremity: COMMON NORMALS: normal to inspection, capillary refill normal, no clubbing, cyanosis or edema, no calf tenderness and no pedal edema Neuro: SENSORIUM/ORIENTATION: Yes oriented to person, Yes oriented to place and Yes oriented to time Skin: COMMON NORMALS: no rashes or lesions noted GENERAL SKIN EXAM: no rashes or lesions noted Course Vital Signs: Vital signs: Vital Signs Temperature 98.9 F 07/08/20 12:24 Pulse Rate 83 07/08/20 16:17 Respiratory Rate 16 07/08/20 16:17 Blood Pressure 132/81 07/08/20 16:17 Pulse Oximetry 96 07/08/20 16:17 MDM - General Adult MDM Narrative: Medical decision making narrative: Reviewed CT findings with the patient including extension of his cancer which they are unaware of extent. recommend follow-up with oncology. He is relatively asymptomatic now. He is not having any more bleeding. His hemoglobin is 10 that should be rechecked again next week return if he has problems. Recommend that he use topical antibiotic ointment [id number] inside the nares to cut down on epistaxis. Lab Data: Labs: Lab Results 07/08/20 07/08/20 07/08/20 Range/Units 14:26 14:40 14:40 WBC 5.2 (4.0-10.0) 10^3/ uL RBC 3.22 L (4.1-5.3) 10^6/u L Hgb 10.0 L (11.7-16.6) g/dL Hct 30.1 L (42.0-52.0) % MCV 93.5 (80-94) fL MCH 31.1 (28.0-34.0) pg MCHC 33.2 (30.0-36.0) g/dL RDW 14.1 (12.1-15.1) % Plt Count 103 L (130-400) 10^3/c mm MPV 9.0 (7.4-10.4) fL Neut % (Auto) 85.4 % Lymph % (Auto) 6.8 % [place] % (Auto) 6.8 % Eos % (Auto) 0.0 % Baso % (Auto) 0.2 % Neut # (Auto) 4.40 (1.8-7.7) 10^3/u L Lymph # (Auto) 0.4 L (0.8-4.8) 10^3/u L [place] # (Auto) 0.4 (0.2-0.9) 10^3/u L Eos # (Auto) 0.0 (0.0-0.8) 10^3/u L Baso # (Auto) 0.0 (0.0-0.1) 10^3/u L Nucleated RBC % (a uto) 0 % Nucleated RBCs # 0.0 /100WBC Sodium 134 L (136-145) mmol/L Potassium 4.3 (3.5-5.1) mmol/L Chloride 98 (98-107) mmol/L Carbon Dioxide 25 (22-29) mmol/L Anion Gap 15.3 (5-19) BUN 9 (8-23) mg/dL Creatinine 0.6 L (0.7-1.2) mg/dL GFR Calculation Not Reportable Glucose 104 (65-115) mg/dL Calculated Osmolal ity 277 L (285-295) mOsm/k g Calcium 8.9 (8.5-10.5) mg/dL Magnesium 1.8 (1.7-2.3) mg/dL Total Bilirubin 0.3 (0.15-1.2) mg/dL AST 22 (0-40) U/L ALT 28 (0-41) U/L Alkaline Phosphata se 101 (40-130) IU/L Creatine Kinase 17 L (39-308) U/L Total Protein 6.4 L (6.6-8.7) g/dL Albumin 3.4 L (3.5-5.2) g/dL Globulin 3.0 (1.3-4.6) g/dL Lipase 28 (13-60) U/L Urine Color Yellow (Yellow) Urine Appearance Clear (CLEAR) Urine pH 7 (5-7) Ur Specific Gravit y 1.005 (1.005-1.030) Urine Protein Neg (Negative) Urine Glucose (UA) Norm (Normal) Urine Ketones Negative (Negative) Urine Blood Neg (Negative) Urine Nitrate Negative (Negative) Urine Bilirubin Neg (Negative) Urine Urobilinogen Norm (Negative) mg/dL Ur Leukocyte Tracy ase Negative (Negative) Discharge Plan Discharge Patient Disposition: Home Clinical Impression: Epistaxis, Adenocarcinoma of left lung, stage 4, Emphysema lung Condition: Stable Prescriptions: No Action dexamethasone 4 mg tablet 4 mg PO DAILY@08 RF: 0 prochlorperazine maleate 10 mg tablet 10 mg PO Q4H PRN (Reason: Nausea) RF: 0 Ativan 1 mg Tablet 1 mg PO TID PRN (Reason: Nausea) RF: 0 folic acid 1 mg tablet 1 mg PO DAILY@08 RF: 0 Discharge Orders: Discharge ED (Routine); Ordered 07/08/20 Ordered By: Tawanda Kaur Referrals: Dali Jimenez MD [Primary Care Provider] - Patient Instructions: Opioid Safety Activity Restrictions/Additional Instructions: Use topical Vaseline-based antibiotic ointments [id number] apply to nares 2-3 times a day. Follow-up with oncology as soon as you are able. Coding Level of Care Code ED Liquor Gallery Operator for g Fwd Exam Detailed
--- NOTE | 2020-07-08 14:00 | XRR_ITS ---
PROCEDURE INFORMATION: Exam: XR Chest Exam date and time: 07/08/2020 2:02 PM Age: 75 years old Clinical indication: Cough and dyspnea; Prior surgery; Surgery type: Port; Patient HX: Dizzy, nosebleed, passed some blood in stool, no chest complaints per patient; Additional info: Dyspnea/cough TECHNIQUE: Imaging protocol: XR of the chest Views: 1 view. COMPARISON: CT chest con [id number] 01/17/2020 12:53 PM FINDINGS: Tubes, catheters and devices: There is a right subclavian catheter whose tip is at the cavoatrial junction. Lungs: There is a 4.6 cm mass in the left upper lobe of the lung. The right lung is clear. Pleural spaces: Unremarkable. No pleural effusion. No pneumothorax. Heart/Mediastinum: Unremarkable. No cardiomegaly. Bones/joints: Unremarkable. XR/XR chest 1V portable [id number] IMPRESSION: There is a mass in the left upper lobe of the lung which was also seen on previous CT scan.If there is desire for further evaluation, a CT scan could be performed.
--- NOTE | 2020-07-08 14:00 | CT_ITS ---
WS: [id number] CT ABDOMEN AND PELVIS WITH CONTRAST HISTORY: Constipation for one week. TECHNIQUE: Imaging performed of the abdomen and pelvis with IV contrast. Single phase imaging of the abdomen. Coronal and sagittal reformats are submitted. All CT scans at [facility] use at least one of these dose optimization techniques: automated exposure control; mA and/or kV adjustment per patient size (includes targeted exams where dose is matched to clinical indication); or iterativ e reconstruction. IV CONTRAST: Omnipaque 300; 95 mL IV. Oral contrast: No DLP: 1558.28 mGy.cm COMPARISON: 05/26/2015 Lower thorax: Focal area of pleural thickening at the RIGHT lung base. Heart is normal size. No hiata l hernia. Liver/biliary system: Normal size liver. Numerous hypoattenuating masses scattered throughout the altagracia er. Largest in the LEFT lobe measures 2.7 x 3.1 cm. No bile duct dilatation. Normal portal vein. Gallbladder: Normal. No gallstones or wall thickening. No pericholecystic fluid. Pancreas: Normal. Spleen: Normal. Adrenal glands: RIGHT adrenal mass with mild enhancement measures 3.0 x 4.4 cm. LEFT adrenal gland is negative. Right kidney: Normal. Left kidney: Several cysts within the LEFT kidney. The largest is lobulated in the central kidney janessa suring 1.8 x 3.3 cm. Aorta: Mild atherosclerosis with no aneurysm. Lymphadenopathy: None. Free fluid: None. GI tract: No GI tract obstruction. Abdominal wall: Fat-containing umbilical hernia. Pelvis: No free fluid or adenopathy in the pelvis. Mildly distended urinary bladder with mild diffuse wall thickening is probably from outlet obstruction. Prostate gland probably been surgically removed . Bilateral inguinal canals are patent. At the orifice of the RIGHT inguinal canal is a loop of colon but no obstruction. Peripherally enhancing mass in the LEFT gluteus ora muscle measures 2.4 cm. Bones: No osteoblastic or osteolytic bone disease is identified. CT/CT abdomen pelvis w con* [id number] IMPRESSION: 1. Numerous lesions within the liver consistent with metastatic disease. 2. RIGHT adrenal mass most likely metastatic disease. 3. Peripherally enhancing LEFT gluteal mass is probably a metastatic deposit. 4. Mild atherosclerosis aorta. 5. Bilateral patent inguinal canals. A loop of colon is at the orifice of the RIGHT inguinal canal but there is no obstruction.
[2020-07-08 14:04] VITALS: BP 114/72; PULSE 79; RESP 22; O2SAT 97
[2020-07-08 14:30] LABS: Add Urine Microscopic? NO
[2020-07-08 14:46] LABS: Bilirubin Urine Neg (Negative); Blood Urine Neg (Negative); Glucose Urine UA Norm (Normal); Ketones Urine Negative (Negative); Leukocyte Esterase Urine Negative (Negative); Nitrate Urine Negative (Negative); Protein Urine Neg (Negative); Specific Gravity, Urine 1.005 (1.005-1.030); Urine Appearance Clear (CLEAR); Urine Color Yellow (Yellow); Urobilinogen Urine Norm (Negative); pH Urine 7 (5-7)
[2020-07-08 14:53] LABS: Basophils % 0.2 %; Hematocrit 30.1 % (42.0-52.0); Lymphocytes # 0.4 10^3/uL (0.8-4.8); Lymphocytes % 6.8 %; Mean Corpuscular HGB Conc 33.2 g/dL (30.0-36.0); Mean Corpuscular Hemoglobin 31.1 pg (28.0-34.0); Mean Corpuscular Volume 93.5 fL (80-94); Monocytes # 0.4 10^3/uL (0.2-0.9); Monocytes % 6.8 %; Neutrophils % 85.4 %; Nucleated Red Blood Cells % 0 %; Platelet Count 103 10^3/cmm (130-400); Red Blood Count 3.22 10^6/uL (4.1-5.3); Red Cell Distribution Width 14.1 % (12.1-15.1); White Blood Count 5.2 10^3/uL (4.0-10.0)
[2020-07-08 14:55] VITALS: BP 114/72; PULSE 90; RESP 20; O2SAT 97
[2020-07-08 15:22] LABS: Alanine Aminotransferase 28 U/L (0-41); Albumin Level 3.4 g/dL (3.5-5.2); Alkaline Phosphatase 101 IU/L (40-130); Anion Gap 15.3 (5-19); Aspartate Amino Transferase 22 U/L (0-40); Blood Urea Nitrogen 9 mg/dL (8-23); Calcium 8.9 mg/dL (8.5-10.5); Carbon Dioxide 25 mmol/L (22-29); Chloride 98 mmol/L (98-107); Creatine Phosphokinase 17 U/L (39-308); Glucose 104 mg/dL (65-115); Lipase 28 U/L (13-60); Magnesium 1.8 mg/dL (1.7-2.3); Osmolality Calculated 277 mOsm/kg (285-295); Potassium 4.3 mmol/L (3.5-5.1); Sodium 134 mmol/L (136-145); Total Bilirubin 0.3 mg/dL (0.15-1.2); Total Protein 6.4 g/dL (6.6-8.7)
[2020-07-08] MEDS: iohexol 300 mg/mL 100 mL Btl IV (15:31)
[2020-07-08 16:17] VITALS: BP 132/81; PULSE 83; RESP 16; O2SAT 96
== END 2020-07-08 16:19 | disposition home or self-care (01) ==
PROVIDERS: Emergency Provider Family Medicine; PCP Family Medicine
DX: R04.0 Epistaxis (principal); C34.92 Malignant neoplasm of unspecified part of left bronchus or lung; J43.9 Emphysema, unspecified; Z86.19 Personal history of other infectious and parasitic diseases; I10 Essential (primary) hypertension; Z85.46 Personal history of malignant neoplasm of prostate; Z87.891 Personal history of nicotine dependence
CPT/HCPCS: 71045; 74177; 80053; 81003; 82550; 83690; 83735; 85025; 99284; Q9967

== ENCOUNTER → 2020-07-16 13:24 | Outpatient (BNVA) | payer OTHER, SELFPAY | PROVIDERS: PCP Family Medicine; Visit Provider Internal Medicine Hematology & Oncology | DX: C34.92 Malignant neoplasm of unspecified part of left bronchus or lung (principal) | CPT/HCPCS: 80053; 84443; 85025 ==

== ENCOUNTER 2020-07-17 09:16 | Outpatient (CLI) | payer OTHER, SELFPAY ==
[2020-07-17] MEDS: sodium chloride 0.9% 250 ML 75 ML IV (10:50)
[2020-07-17] MEDS: palonosetron 0.25 mg/5 mL SDV IV (10:54)
[2020-07-17] MEDS: famotidine 20 mg/2 mL INJ IVP (10:55)
[2020-07-17] MEDS: diphenhydrAMINE 50 mg/mL SDV 1mL 25 MG IV (10:56)
[2020-07-17] MEDS: fosaprepitant 150 MG in sodium chloride 0.9% 150 ML 300 MG IV (11:54)
[2020-07-17] MEDS: sodium chloride 0.9% (100 ml) 100 ML 45 ML (13:45)
--- NOTE | 2020-07-17 17:08 | ONC FU_ITS ---
Dr. Jefferson follow up note Patient: Rubén Vicente Unit #: [id number]: 1945 Dicatated By: Galindo Jefferson M.D.Date of Visit:Jul 17, 2020 Onc Med Follow-up/Prog Note History of Present Illness: Mr. 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 In December 2019 he developed progressive headaches and eventually underwent MRI scan of the brain January 17, 2020. This did show 3 enhancing lesions with surrounding edema involving the left side of the brainstem at the level of the katy. There was edema involving portion of the anterior left side cerebellum. The fourth ventricle demonstrated mild mass-effect from the edema. Supratentorially there was an enhancing lesion in the right thalamus with a large amount of surrounding edema causing midline shift from left to right???approximately 4 to 5 mm. There was an enhancing lesion with surrounding edema involving the cortex and deep white matter of the right occipital lobe. Mr. Vicente underwent CT scan of the chest which showed a large mass measuring 6.5 x 5.1 x 5.3 cm in the left upper lobe and also another nodule in the same lobe. He underwent bronchoscopy with transbronchial biopsy on February 15, 2020. The pathology showed poorly differentiated adenocarcinoma, favor lung region as immunohistochemistry stains were positive for TTF-1???1, Napsin, CK cocktail, CK7 and negative for PSA, p63, synaptophysin, CK20, CK 5/6 and chromogranin A as well as CDX2. Mr. Vicente reported that he had not had any hemoptysis or hematemesis. He denied any bone pain or any jaundice. He had no trouble swallowing. But he had lost about 10 pounds in the months prior to the work-up. Mr. Vicente has a history of prostate cancer diagnosed in April 2015. The Kyung score was [address] scan of the abdomen pelvis and bone scan did not show any evidence of metastatic disease at that time. As he was high risk he was treated with Eligard and radiation therapy. He did continue taking Eligard every 3 months and the last dose was given in December 2019. Mr. Vicente has a smoking history of 50 years but states he quit in December 2019. He does have a history of alcohol use but mostly beer only. Mr. Vicente underwent radiation for his brain metastasis. He had been having worsening of his handwriting and questionable memory loss. He did start on dexamethasone on January 17, 2020 as the MRI was positive for brain mets. He then was referred to radiation oncology. He is received a total of 30 cGy from March 03, 2020 until March 18, 2020. He tolerated it well and was able to taper down the dexamethasone. He did have a PET CT scan on March 01, 2020 which showed a 4 x 4.6 x 3.8 left upper lobe mass with central necrosis with an SUV of 12.8 and a second solid nodule in the left upper lobe measuring 1.2 x 0.9 cm. This was FDG negative. Local metastatic disease was present in the superior left hilar node measuring 1.3 cm with an SUV of 5.2. There was questionable uptake in the subaortic node that was felt to be likely reactive . Molecular profiling reported on May 13, 2020 confirmed PD-L1 (22 C3) positive, TPS 15% which equates benefit from pembrolizumab. He did have PD-L1 (28???8) positive at 1+ which equated to 25% benefit from nivolumab/ipilimumab. He was negative for ALK, EGFR, KRAS, BRAF, ROS1 and MET. offered treatment with chemo immunotherapy with agents being pembrolizumab/carboplatin/Alimta every 3 weeks with a plan to repeat the PET CT imaging after the third cycle to assess response.Started on June 26, 2020 Went to [facility] on July 08, 2020 with constipation and episode of blood in his stool and epistaxis, as per patient mag citrate relieved his constipation at home but then caused self-limiting small blood in his stools in the ER his white blood count was 5.2 hemoglobin 10 hematocrit 30.1 platelets 103,000, CT scan of abdomen pelvis was done on July 08, 2020 which showed numerous hypoattenuating masses scattered throughout the liver largest in the left lobe measuring 2.7 x 3.1 cm and right adrenal mass with mild enhancement measuring 3.0 x 4.4 cm peripherally enhancing mass in the left gluteus ora measurement 2.4 cm, chest x-ray showed 4.6 cm mass in the left upper lobe of the lung Came for follow-up, denies any specific complaint but sometimes generalized weakness and fatigue and tolerated first cycle of chemotherapy well as per patient he was having excessive urination at night on the day of chemotherapy and was also feeling thirsty otherwise no nausea or vomiting no diarrhea but constipation which was relieved by mag citrate and caused episode of bleeding. As per daughter patient does not drink much of fluid and his appetite is also not so good. But his pain is under control with current pain medication which he rarely takes . Medications: Cholecalciferol 1 Tablet (of 100 mcg ) Oral daily, Dexamethasone 1 Tablet (of 4 mg) Oral daily, Folic Acid 1 Tablet (of 400 mcg) Oral daily, Multivitamin 1 Tablet Oral daily Allergies: No Known Allergies. Review of Systems: Review of Systems is not available for this patient. Vital Signs: Performed on Jul 17, 2020 10:27 Height - 72.00 in Weight - 178 lbs (LOW) BSA - 2.03 sq.m BMI - 24.14 Temperature - 98.0 F (LOW) Pulse - 114 /min (HIGH) Respiration - 20 /min BP - 108/72 mm(hg) O2 Sat - 96 % Pain - 10 Fatigue - 10 Performance Status: 2 - Ambulatory/capable of all self-care, unable to perform any work activities. Up and about more than 50% of waking hours. (ECOG) Physical Examination: ENMT - ,No mouth sores, no thrush, no jaundice but dry oral mucosa, Respiratory - Lungs are clear to auscultation, Cardiovascular - Regular rate and rhythm of heart, Abdomen - Soft, bowel sounds present, Extremities - No visible edema. Lab/Imaging: Test performed on Jul 17, 2020 07:57 Sodium 139 mmol/L TSH 4.32 uIU/mL Potassium 4.3 mmol/L Chloride 99 mmol/L CO2 26 mmol/L Anion Gap 18.3 BUN 14 mg/dL Creatinine 0.8 mg/dL Cr Clearance (Est) 95.32 mL/min Glucose 157 mg/dL Osmolality - Calculated 292 mOsm/kg Calcium 9.5 mg/dL Protein, Total 6.5 g/dL Albumin 3.7 g/dL Globulin 2.8 g/dL Bilirubin, Total 0.4 mg/dL ALT (SGPT) 26 Units/L AST (SGOT) 23 Units/L Alkaline Phosphatase 123 IU/L WBC 5.8 10^3/uL RBC 3.63 10^6/uL HGB 11.4 g/dL HCT 36.1 % MCV 99.4 fl MCH 31.4 pg MCHC 31.6 g/dL RDW 15.3 % Platelet Count 360 10^3/uL MPV 8.7 fl Neutrophils 75.7 10^3/uL Lymphocytes 10.6 10^3/uL Monocytes 10.1 10^3/uL Eosinophils 0.2 10^3/uL Basophils 0.3 10^3/uL Neutrophil % 4.42 % Lymphocyte % 0.6 % Monocyte % 0.6 % Eosinophil % 0.0 % Basophils % 0.0 % NRBC 0.0 /100 WBC NRBC % 0 % Test performed on Mar 27, 2020 11:42 Magnesium 2.2 mg/dL Impression: 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 per transbronchial biopsy done on February 15, 2020 immunohistochemistry positive for TTF-1, Napsin, CK cocktail, CK7 and negative for PSA, p63, synaptophysin, CK20, CK 5/6 and CDX2, chromogranin A MRI scan of the brain done on January 17, 2020 shows brain mets,Status post radiation therapy completed on March 18, 2020 clinical stage IV, Molecular profiling reported on May 13, 2020 is positive for PD-L1 (22c3), TPS 15% indicate benefit from pembrolizumab and PD-L1 (28???8) positive , 1+, 25% indicate benefit from nivolumab/ipilimumab combination And negative for ALK, BRAF, EGFR, ROS1, K-john,, MSI stable, tumor mutational burden 7% which is low. NTRK indeterminate CT PET scan done on March 01, 2020 showed hypermetabolic left upper lobe mass 4 x 4.6 x 3.8 cm and a second solid nodule in the left upper lobe measuring 1.2 x 0.9 cm is FDG negative. Local metastatic disease is present in the superior left hilar node measuring 1.3 cm with SUV of 5.2. History of prostate cancer, high risk diagnosed in April 2015, with negative CT scan of abdomen pelvis and bone scan but high Kyung score, being high risk patient status post ADT/radiation therapy followed by Susanna every 3-month till December 2018. discussed with Mr Vicente his disease status and recently obtained molecular profiling report. The molecular confirmed negative for ALK, EGFR, ROS1, K-john, BRAF, MET but positive for PD-L1 with that information, recommended chemo immunotherapy with pembrolizumab/carboplatin/Alimta every 3 weeks and repeat PET/CT scan after third cycle to assess the response. Mr. Vicente is here today for his first cycle of chemo/immunotherapy. Mr. Vicente had placement of a PowerPort in the right subclavian vein by Dr. Tavares on June 16, 2020. Plan: Discussed with patient regarding his labs white blood count 5.8 hemoglobin 11.4 hematocrit 36.1 platelets 360,000 CMP within normal limit except glucose 157 and TSH 4.32, compared to 0.94 on June 26, 2020 Clinically, patient is doing reasonably well, tolerated first cycle of chemotherapy/immunotherapy with Keytruda/carboplatin/Alimta well but with expected side effect e.g. excessive urination and thirst could be due to hyperglycemia due to steroids as 2 days CMP shows glucose 157. Patient and daughter were concerned about CT scan of abdomen findings, patient was advised he was present to us with metastatic disease to the brain but at this time CT scan of chest did not show any liver mets and patient was treated with radiation therapy and then finally started his systemic chemoimmunotherapy for stage IV disease on June 26, 2020, during this period, liver mets/adrenal mets have become more obvious but not unexpected., Plan is to give him 3 cycles of systemic chemoimmunotherapy followed with a CT PET scan to assess disease response. At this point we will proceed with cycle #2 with carboplatin/Alimta/Keytruda and then patient return to clinic in 2 weeks with CBC CMP Patient was advised to monitor hydration and nutrition and also take pain medicine to stay comfortable and if needed he can come to clinic for hydration on as-needed basis and we will also consider home visiting nurse to evaluate him as patient [place] 30 [place] from the center. We will also monitor his blood sugar and his use mild sliding scale specimen the day of chemotherapy Signed By: Galindo Jefferson M.D. <<Signature on File>>
== END 2020-07-17 09:17 | disposition home or self-care (01) ==
LOC: ONCMED 09:17
PROVIDERS: PCP Family Medicine; Visit Provider Internal Medicine Hematology & Oncology
DX: Z51.11 Encounter for antineoplastic chemotherapy (principal); C34.12 Malignant neoplasm of upper lobe, left bronchus or lung; C77.1 Secondary and unspecified malignant neoplasm of intrathoracic lymph nodes; C79.31 Secondary malignant neoplasm of brain; R63.1 Polydipsia; R35.0 Frequency of micturition; T45.1X5A Adverse effect of antineoplastic and immunosuppressive drugs, initial encounter; R73.9 Hyperglycemia, unspecified; T38.0X5A Adverse effect of glucocorticoids and synthetic analogues, initial encounter; Z92.3 Personal history of irradiation; Z79.899 Other long term (current) drug therapy; Z85.46 Personal history of malignant neoplasm of prostate
CPT/HCPCS: 96367; 96375; 96413; 96417; 99215; J1100; J1200; J1453; J2469; J3490; J7050; J9045; J9271; J9305

== ENCOUNTER 2020-08-12 07:59 | Outpatient (RCR) | payer OTHER, SELFPAY ==
[2020-07-22] MEDS: sodium chloride 0.9% 500 ML IV (14:43)
[2020-07-24] MEDS: sodium chloride 0.9% 500 ML 999 ML IV (11:54)
[2020-08-07 08:57] LABS: Basophils % 0.4 %; Eosinophils % 0.4 %; Hematocrit 27.4 % (42.0-52.0); Hemoglobin 8.8 g/dL (11.7-16.6); Lymphocytes # 1.3 10^3/uL (0.8-4.8); Lymphocytes % 22.3 %; Mean Corpuscular HGB Conc 32.1 g/dL (30.0-36.0); Mean Corpuscular Hemoglobin 31.8 pg (28.0-34.0); Mean Corpuscular Volume 98.9 fL (80-94); Mean Platelet Volume 8.9 fL (7.4-10.4); Monocytes # 0.7 10^3/uL (0.2-0.9); Monocytes % 13.1 %; Neutrophils # 3.48 10^3/uL (1.8-7.7); Neutrophils % 61.3 %; Nucleated Red Blood Cells % 0 %; Platelet Count 337 10^3/cmm (130-400); Red Blood Count 2.77 10^6/uL (4.1-5.3); Red Cell Distribution Width 16.8 % (12.1-15.1); White Blood Count 5.7 10^3/uL (4.0-10.0)
[2020-08-07 09:22] LABS: Alanine Aminotransferase 25 U/L (0-41); Albumin Level 3.6 g/dL (3.5-5.2); Alkaline Phosphatase 116 IU/L (40-130); Anion Gap 13.6 (5-19); Aspartate Amino Transferase 23 U/L (0-40); Blood Urea Nitrogen 17 mg/dL (8-23); Calcium 8.8 mg/dL (8.5-10.5); Carbon Dioxide 27 mmol/L (22-29); Chloride 97 mmol/L (98-107); Globulin 2.6 g/dL (1.3-4.6); Glucose 97 mg/dL (65-115); Osmolality Calculated 279 mOsm/kg (285-295); Potassium 3.6 mmol/L (3.5-5.1); Sodium 134 mmol/L (136-145); Thyroid Stimulating Hormone 2.36 uIU/mL (0.27-4.20); Total Bilirubin 0.3 mg/dL (0.15-1.2); Total Protein 6.2 g/dL (6.6-8.7)
[2020-08-07] MEDS: famotidine 20 mg/2 mL INJ IVP (10:48)
[2020-08-07] MEDS: sodium chloride 0.9% 250 ML 999 ML IV (10:48)
[2020-08-07] MEDS: palonosetron 0.25 mg/5 mL SDV IVP (10:51)
[2020-08-07] MEDS: sodium chloride 0.9% (100 ml) 100 ML 500 ML (11:08)
[2020-08-07] MEDS: diphenhydrAMINE 50 mg/mL SDV 1mL 25 MG IVP (11:08)
[2020-08-07 12:06] LABS: Iron 70 ug/dL (59-158); Percent Saturation 37.8 % (20-50); Total Iron Binding Capacity 185 mcg/dl; Unsaturated Iron Binding 115 ug/dL (112-347)
[2020-08-07 12:29] LABS: Vitamin B12 827 pg/mL (232-1245)
[2020-08-11] MEDS: sodium chloride 0.9% 1,000 ML 999 ML IV (13:10)
[2020-08-11] MEDS: famotidine 20 mg/2 mL INJ IVP (13:30)
[2020-08-11] MEDS: ondansetron 2 mg/ML SDV 2 mL 8 MG IV (13:32)
[2020-08-11 14:05] LABS: Basophils % 0.3 %; Hematocrit 25.3 % (42.0-52.0); Hemoglobin 8.1 g/dL (11.7-16.6); Lymphocytes # 0.3 10^3/uL (0.8-4.8); Lymphocytes % 9.2 %; Mean Corpuscular Hemoglobin 31.6 pg (28.0-34.0); Mean Corpuscular Volume 98.8 fL (80-94); Mean Platelet Volume 9.1 fL (7.4-10.4); Neutrophils # 2.61 10^3/uL (1.8-7.7); Neutrophils % 89.2 %; Nucleated Red Blood Cells % 0 %; Platelet Count 165 10^3/cmm (130-400); Red Blood Count 2.56 10^6/uL (4.1-5.3); Red Cell Distribution Width 16.8 % (12.1-15.1); White Blood Count 2.9 10^3/uL (4.0-10.0)
[2020-08-11 14:41] LABS: Alanine Aminotransferase 33 U/L (0-41); Albumin Level 3.4 g/dL (3.5-5.2); Alkaline Phosphatase 103 IU/L (40-130); Anion Gap 13.4 (5-19); Aspartate Amino Transferase 32 U/L (0-40); Blood Urea Nitrogen 19 mg/dL (8-23); Calcium 8.1 mg/dL (8.5-10.5); Carbon Dioxide 26 mmol/L (22-29); Chloride 99 mmol/L (98-107); Globulin 2.3 g/dL (1.3-4.6); Glucose 99 mg/dL (65-115); Magnesium 1.7 mg/dL (1.7-2.3); Osmolality Calculated 282 mOsm/kg (285-295); Potassium 3.4 mmol/L (3.5-5.1); Sodium 135 mmol/L (136-145); Total Bilirubin 0.5 mg/dL (0.15-1.2); Total Protein 5.7 g/dL (6.6-8.7)
[2020-08-11 14:43] LABS: Slide Review Slide Review Perform
[2020-08-12] MEDS: sodium chloride 0.9% 1,000 ML 999 ML IV (08:26)
[2020-08-12 08:42] LABS: Hematocrit 25.4 % (42.0-52.0); Hemoglobin 8.2 g/dL (11.7-16.6); Lymphocytes # 0.6 10^3/uL (0.8-4.8); Lymphocytes % 14.2 %; Mean Corpuscular HGB Conc 32.3 g/dL (30.0-36.0); Mean Corpuscular Hemoglobin 31.7 pg (28.0-34.0); Mean Corpuscular Volume 98.1 fL (80-94); Mean Platelet Volume 8.8 fL (7.4-10.4); Monocytes # 0.1 10^3/uL (0.2-0.9); Monocytes % 1.8 %; Neutrophils # 3.66 10^3/uL (1.8-7.7); Neutrophils % 83.5 %; Nucleated Red Blood Cells % 0 %; Platelet Count 181 10^3/cmm (130-400); Red Blood Count 2.59 10^6/uL (4.1-5.3); Red Cell Distribution Width 16.6 % (12.1-15.1); White Blood Count 4.4 10^3/uL (4.0-10.0)
[2020-08-12 09:16] LABS: Slide Review Slide Review Perform
[2020-08-12] MEDS: sodium chloride 0.9% 250 ML 999 ML IV (11:00)
[2020-08-12] MEDS: acetaminophen 325 mg Tablet 650 MG PO (11:00)
[2020-08-12] MEDS: diphenhydrAMINE 25 mg Capsule PO (11:00)
[2020-08-12 11:50] VITALS: BP 120/66; PULSE 82; RESP 18; TEMP 36.6; O2SAT 99
[2020-08-12 12:05] VITALS: BP 120/67; PULSE 82; RESP 18; TEMP 36.6; O2SAT 99
[2020-08-12 12:35] VITALS: BP 118/68; PULSE 84; RESP 18; TEMP 36.6; O2SAT 99
[2020-08-12 13:10] VITALS: BP 100/67; PULSE 82; RESP 18; TEMP 36.6; O2SAT 99
== END 2020-08-15 23:59 | disposition home or self-care (01) ==
LOC: ONCMED 07:59
PROVIDERS: PCP Family Medicine; Visit Provider Internal Medicine Hematology & Oncology
DX: Z51.11 Encounter for antineoplastic chemotherapy (principal); C34.12 Malignant neoplasm of upper lobe, left bronchus or lung; C79.31 Secondary malignant neoplasm of brain; Z79.899 Other long term (current) drug therapy
CPT/HCPCS: 36430; 80053; 82607; 83540; 83550; 83735; 84443; 85025; 86850; 86900; 86920; 96360; 96361; 96365; 96367; 96375; 96413; 96417; J1100; J1200; J1453; J2405; J2469; J3490; J7030; J7040; J7050; J9045; J9271; J9305; P9016

== ENCOUNTER 2020-08-22 08:39 | Inpatient (IN) | payer OTHER, MEDICARE, SELFPAY ==
[2020-08-22] VITALS (61 sets, daily range): BP systolic 87–130; BP diastolic 49–74; PULSE 73–99; RESP 15–29; TEMP 36.8–37.2; O2SAT 93–99; BMI 24.4
--- NOTE | 2020-08-22 08:47 | CT_ITS ---
WS: [id number] CT ABDOMEN AND PELVIS WITH CONTRAST HISTORY: Abdominal pain, bloody stool and known metastatic disease. TECHNIQUE: Imaging performed of the abdomen and pelvis with IV contrast. Single phase imaging of the abdomen. Coronal and sagittal reformats are submitted. All CT scans at [facility] use at least one of these dose optimization techniques: automated exposure control; mA and/or kV adjustment per patient size (includes targeted exams where dose is matched to clinical indication); or iterativ e reconstruction. IV CONTRAST: Omnipaque 300; 95 mL IV. Oral contrast: No DLP: 1130.33 mGy.cm COMPARISON: 07/08/2020 and PET/CT 08/16/2020 Lower thorax: Marked pulmonary hyperexpansion from emphysema at the lung bases. Heart is normal size. No hiatal hernia. Liver/biliary system: Patient has known hepatic metastatic disease. The largest lesion in the LEFT lo be of liver is slightly decreased in size. Largest lesion in the RIGHT lobe has slightly increased in size now measuring 1.8 x 1.9 cm. Overall there probably has not been a significant change. Do believ e there has been a slight improvement with less metastatic lesions identified. Gallbladder: Normal. No gallstones or wall thickening. No pericholecystic fluid. Pancreas: Normal size pancreas and pancreatic duct. No adjacent inflammation. Spleen: Normal size spleen. No mass or infarct. Adrenal glands: Metastatic disease within the RIGHT adrenal gland. There is heterogeneous enhancement with the adrenal gland measuring 4.0 x 4.6 cm which has increased in size slightly since the prior C T. Normal LEFT adrenal gland. Right kidney: Normal. Left kidney: Normal size kidney. Lobulated cyst in the mid kidney measures 2.3 x 3.9 cm. No obstructi on. Aorta: Mild atherosclerosis with no aneurysm. Lymphadenopathy: Enlarging 8 mm lymph node to the RIGHT of the celiac axis. No large groups of adenop athy. Free fluid: None. GI tract: No GI tract obstruction. No wall thickening or edema. Abdominal wall: Fat containing umbilical hernia. Pelvis: No free fluid or adenopathy within the pelvis. Patent inguinal canals. Previous the described RIGHT gluteal malignancy is not identified by CT. Bones: Patient has known metastatic bone disease. Bone lesions were best seen on the PET/CT from 2020. CT/CT abdomen pelvis w con* [id number] IMPRESSION: 1. Known hepatic metastatic disease. There has been a very slight improvement in the metastatic burden in the liver. 2. Enlarging RIGHT adrenal metastasis. 3. RIGHT upper abdominal lymph node measures 8 mm and very slightly increased in size since 07/08/2020. 4. No acute abdominal or pelvic abnormalities are identified. 5. Patient has known metastatic bone disease which was best described by davidn t PET/CT.
[2020-08-22 09:04] LABS: Hematocrit 23.2 % (42.0-52.0); Hemoglobin 7.8 g/dL (11.7-16.6); Lymphocytes # 0.7 10^3/uL (0.8-4.8); Lymphocytes % 25.4 %; Mean Corpuscular HGB Conc 33.6 g/dL (30.0-36.0); Mean Corpuscular Hemoglobin 31.7 pg (28.0-34.0); Mean Corpuscular Volume 94.3 fL (80-94); Mean Platelet Volume 10.1 fL (7.4-10.4); Monocytes # 0.4 10^3/uL (0.2-0.9); Monocytes % 14.1 %; Neutrophils # 1.65 10^3/uL (1.8-7.7); Neutrophils % 59.8 %; Nucleated Red Blood Cells % 0 %; Platelet Count 31 10^3/cmm (130-400); Red Blood Count 2.46 10^6/uL (4.1-5.3); Red Cell Distribution Width 14.9 % (12.1-15.1); White Blood Count 2.8 10^3/uL (4.0-10.0)
--- NOTE | 2020-08-22 09:07 | ED_ITS ---
HPI - General Adult General: Chief complaint: General Medical Stated complaint: multiple complaints Time Seen by Provider: 08/22/20 08:41 History of Present Illness: HPI narrative: 75-year-old male presents to the emergency room with complaint of abdominal discomfort. Patient reports bright red blood per rectum last couple of days. Patient has a history of malignant neoplasm of the lung with metastasis.Patient is a known history of mets to the brain has also had several syncopal episodes last few days. He denies any worsening of his breathing denies any chest pain. Onset (ago): hour(s) Location: abdomen Severity: mild Quality: dull Relieving factors: none Exacerbating factors: none Associated symptoms: Reports decreased appetite, dyspnea, nausea, syncope and weakness; Deny chest pain, confusion, cough, diaphoresis, fevers/chills, headache(s), malaise, rash, palpitations, seizures, short of breath or vomiting Treatments prior to arrival: none Review of Systems Const: Denies: malaise or diaphoresis Card: Reports: syncope; Denies: chest pain or palpitations Resp: Reports: dyspnea GI: Reports: nausea; Denies: vomiting Skin/Breast: Denies: rash Neuro: Denies: headache(s) or confusion PFSH ED PFSH: Medical History (Updated 08/25/20 @ 15:52 by Tawanda Kaur DO) Chronic viral hepatitis C COPD (chronic obstructive pulmonary disease) DDD (degenerative disc disease) Ganglion cyst HTN (hypertension) Malignant neoplasm of prostate Malignant neoplasm of upper lobe, left bronchus or lung Metastatic lung cancer (metastasis from lung to other site) Scalp mass Surgical History History of surgical removal of ganglion cyst Hx of tonsillectomy Port-A-Cath in place (06/16/20) Family History Father CAD (coronary artery disease) Cancer Social History Smoking and tobacco status: former smoker Quit status (tobacco): has quit using tobacco Year quit tobacco: 2020 - Hx of 1PPD x 50 Y Second hand smoke exposure: Yes Alcohol intake: former Lives independently: Yes Household members: spouse Marital status: Current occupational status: retired History of recent travel: No Current gender identity: Male Physical Exam Const: COMMON NORMALS: no acute distress GENERAL APPEARANCE: cooperative and comfortable ORIENTATION/CONSCIOUSNESS: Yes awake, Yes oriented to person, Yes oriented to place and Yes oriented to time HENMT: COMMON NORMALS: normocephalic and atraumatic HEAD & SCALP: normocephalic and atraumatic Neck/C-Spine: COMMON NORMALS: full ROM, no lymphadenopathy, supple and no JVD Resp: COMMON NORMALS: normal respiratory effort, No retractions, No use of accessory muscles and clear to auscultation bilaterally AUSCULTATION: clear to auscultation bilaterally Cardio: COMMON NORMALS: no JVD, regular rate, regular rhythm and No murmurs present (Cardio) RATE: regular rate RHYTHM: regular rhythm GI: COMMON NORMALS: Soft to palpation and No hepatosplenomegaly present AUSCULTATION: Yes normoactive bowel sounds PALPATION: Yes Soft to palpation, No Tenderness to palpation present (GI), No Guarding due to palpation present (GI) and Yes No hepatosplenomegaly present Extremity: COMMON NORMALS: normal to inspection, capillary refill normal, no clubbing, cyanosis or edema, no calf tenderness and no pedal edema Neuro: SENSORIUM/ORIENTATION: Yes oriented to person, Yes oriented to place and Yes oriented to time Skin: COMMON NORMALS: no rashes or lesions noted GENERAL SKIN EXAM: no rashes or lesions noted Course Vital Signs: Vital signs: Vital Signs Temperature 98.4 F 08/25/20 11:15 Pulse Rate 51 L 08/25/20 14:00 Respiratory Rate 18 08/25/20 11:15 Blood Pressure 115/67 08/25/20 11:15 Pulse Oximetry 97 08/25/20 11:15 MDM - General Adult MDM Narrative: Medical decision making narrative: Discussed findings the patient with Dr. Mi will admit for transfusion blood and monitoring for further blood losses. orders have been written. Lab Data: Labs: Lab Results 08/22/20 08/22/20 08/22/20 Range/Units 08:27 08:27 08:57 WBC 2.8 L (4.0-10.0) 10^3/ uL RBC 2.46 L (4.1-5.3) 10^6/u L Hgb 7.8 L (11.7-16.6) g/dL Hct 23.2 L (42.0-52.0) % MCV 94.3 H (80-94) fL MCH 31.7 (28.0-34.0) pg MCHC 33.6 (30.0-36.0) g/dL RDW 14.9 (12.1-15.1) % Plt Count 31 L (130-400) 10^3/c mm MPV 10.1 (7.4-10.4) fL Neut % (Auto) 59.8 % Lymph % (Auto) 25.4 % [place] % (Auto) 14.1 % Eos % (Auto) 0.0 % Baso % (Auto) 0.0 % Neut # (Auto) 1.65 L (1.8-7.7) 10^3/u L Lymph # (Auto) 0.7 L (0.8-4.8) 10^3/u L Independence # (Auto) 0.4 (0.2-0.9) 10^3/u L Eos # (Auto) 0.0 (0.0-0.8) 10^3/u L Baso # (Auto) 0.0 (0.0-0.1) 10^3/u L Nucleated RBC % (a uto) 0 % Nucleated RBCs # 0.0 /100WBC PT (12.1-14.9) SECO NDS INR (0.8-1.2) APTT (23.9-36.7) SECO NDS Sodium (136-145) mmol/L Potassium (3.5-5.1) mmol/L Chloride (98-107) mmol/L Carbon Dioxide (22-29) mmol/L Anion Gap (5-19) BUN (8-23) mg/dL Creatinine (0.7-1.2) mg/dL GFR Calculation Glucose (65-115) mg/dL Calculated Osmolal ity (285-295) mOsm/k g Calcium (8.5-10.5) mg/dL Magnesium (1.7-2.3) mg/dL Iron 108 (59-158) ug/dL TIBC 138 mcg/dl % Saturation 78.2 H (20-50) % Unsat Iron Binding 30 L (112-347) ug/dL Ferritin 1684 H (30-400) ng/mL Total Bilirubin (0.15-1.2) mg/dL AST (0-40) U/L ALT (0-41) U/L Alkaline Phosphata se (40-130) IU/L Total Protein (6.6-8.7) g/dL Albumin (3.5-5.2) g/dL Globulin (1.3-4.6) g/dL Lipase (13-60) U/L Vitamin B12 728 (232-1245) pg/mL Folate 17.3 (4.5-32.2) ng/mL TSH (0.27-4.20) uIU/ mL 08/22/20 08/22/20 08/22/20 Range/Units 08:57 08:57 08:57 WBC (4.0-10.0) 10^3/ uL RBC (4.1-5.3) 10^6/u L Hgb (11.7-16.6) g/dL Hct (42.0-52.0) % MCV (80-94) fL MCH (28.0-34.0) pg MCHC (30.0-36.0) g/dL RDW (12.1-15.1) % Plt Count (130-400) 10^3/c mm MPV (7.4-10.4) fL Neut % (Auto) % Lymph % (Auto) % Independence % (Auto) % Eos % (Auto) % Baso % (Auto) % Neut # (Auto) (1.8-7.7) 10^3/u L Lymph # (Auto) (0.8-4.8) 10^3/u L Independence # (Auto) (0.2-0.9) 10^3/u L Eos # (Auto) (0.0-0.8) 10^3/u L Baso # (Auto) (0.0-0.1) 10^3/u L Nucleated RBC % (a uto) % Nucleated RBCs # /100WBC PT 14.80 (12.1-14.9) SECO NDS INR 1.12 (0.8-1.2) APTT 28.3 (23.9-36.7) SECO NDS Sodium 138 (136-145) mmol/L Potassium 2.7 L* (3.5-5.1) mmol/L Chloride 98 (98-107) mmol/L Carbon Dioxide 27 (22-29) mmol/L Anion Gap 15.7 (5-19) BUN 30 H (8-23) mg/dL Creatinine 0.7 (0.7-1.2) mg/dL GFR Calculation Not Reportable Glucose 81 (65-115) mg/dL Calculated Osmolal ity 291 (285-295) mOsm/k g Calcium 8.0 L (8.5-10.5) mg/dL Magnesium 1.6 L (1.7-2.3) mg/dL Iron (59-158) ug/dL TIBC mcg/dl % Saturation (20-50) % Unsat Iron Binding (112-347) ug/dL Ferritin (30-400) ng/mL Total Bilirubin 0.5 (0.15-1.2) mg/dL AST 25 (0-40) U/L ALT 33 (0-41) U/L Alkaline Phosphata se 108 (40-130) IU/L Total Protein 5.7 L (6.6-8.7) g/dL Albumin 3.3 L (3.5-5.2) g/dL Globulin 2.4 (1.3-4.6) g/dL Lipase 67 H (13-60) U/L Vitamin B12 (232-1245) pg/mL Folate (4.5-32.2) ng/mL TSH 2.27 (0.27-4.20) uIU/ mL Discharge Plan Discharge Patient Disposition: Admitted As Inpatient Admit Provider: Rufino Lundberg Clinical Impression: Anemia, Thrombocytopenia, Metastatic lung cancer (metastasis from lung to other site), Malignant neoplasm of upper lobe, left bronchus or lung, GI bleeding, COPD (chronic obstructive pulmonary disease), Chronic viral hepatitis C Condition: Stable Coding Level of Care Code ED Secretary To Board Of Commissioners for Chg Fwd Exam Comprehensive
[2020-08-22 09:24] LABS: Alanine Aminotransferase 33 U/L (0-41); Albumin Level 3.3 g/dL (3.5-5.2); Alkaline Phosphatase 108 IU/L (40-130); Anion Gap 15.7 (5-19); Aspartate Amino Transferase 25 U/L (0-40); Blood Urea Nitrogen 30 mg/dL (8-23); Carbon Dioxide 27 mmol/L (22-29); Chloride 98 mmol/L (98-107); Globulin 2.4 g/dL (1.3-4.6); Glucose 81 mg/dL (65-115); Lipase 67 U/L (13-60); Osmolality Calculated 291 mOsm/kg (285-295); Sodium 138 mmol/L (136-145); Total Bilirubin 0.5 mg/dL (0.15-1.2); Total Protein 5.7 g/dL (6.6-8.7)
[2020-08-22 09:33] LABS: Potassium 2.7 mmol/L (3.5-5.1)
[2020-08-22] MEDS: iohexol 300 mg/mL 100 mL Btl IV (09:47)
[2020-08-22] MEDS: lidocaine 1% 5 ML in potassium chloride premix 100 ML 25 ML IV ×2 (10:50→17:09)
[2020-08-22] MEDS: promethazine 25 mg/mL SDV 1 mL IM (10:50)
[2020-08-22 11:09] LABS: INR 1.12 (0.8-1.2)
[2020-08-22 11:10] LABS: Partial Thromboplastin Time 28.3 SECONDS (23.9-36.7)
--- NOTE | 2020-08-22 12:40 | PM.HP ---
Providers/Chief Complaint Primary Care Provider: Dali Jimenez MD Chief Complaint: multiple complaints History of Present Illness Rubén Vicente is a 75 year old male who presents to the emergency department with overall weakness, history of some blood in his stool, continued loose stool whenever he eats. He reports loose stool when he eats has been going on ever since he started chemotherapy. Weakness, with feelings of presyncope/severe dizziness has been occurring the last several days whenever he tries to get up and stand. He has had blood in his stool intermittently, with his last bowel movement being this morning. It is hard for him to quantify how much blood. He has not had any abdominal pain, or fever. He has had no vomiting. His last chemotherapy was approximately 2-1/2 weeks ago. He denies any chest discomfort, exposure to Covid, personal history of Covid or vaccine for it. He is currently undergoing palliative chemotherapy for metastatic lung cancer, with widespread mets including brain for which he has received radiation. Review of Systems General: Reports: 10 or more systems reviewed and unremarkable except in HPI and below Const: Reports: malaise; Denies: fever(s) or chills Eyes: Denies: change in vision ENMT: Denies: throat pain Card: Denies: chest pain Resp: Reports: dyspnea GI: Reports: hematochezia; Denies: abdominal pain, nausea, vomiting or melena : Denies: flank pain Musc: Denies: neck pain Skin/Breast: Denies: rash Neuro: Denies: headache(s) Psych: Denies: anxiety or depression Endo: Denies: polyuria Noe/Lymph: Denies: easy bruising All/Imm: Denies: urticaria Medications/Allergies Home Medications Medication Instructions Recorded Confirmed Last Taken Type dexamethasone 4 mg tablet 4 mg PO DAILY@02/28/20 08/22/20 08/21/20 History folic acid 1 mg PO DAILY@06/13/20 08/22/20 08/21/20 History lorazepam [Ativan] 1 mg PO TID PRN 07/08/20 08/22/20 Unknown History prochlorperazine maleate 10 mg PO Q4H PRN 07/08/20 08/22/20 07/08/20 History oxycodone-acetaminophen 1 tab PO Q4H PRN 08/22/20 08/22/20 Unknown History Allergies Allergy/AdvReac Type Severity Reaction Status Date / Time No Known Allergies Allergy Verified 07/08/20 12:38 PFSH Acute PFSH: Medical History (Updated 08/22/20 @ 14:29 by Rufino Lundberg MD) Chronic viral hepatitis C COPD (chronic obstructive pulmonary disease) DDD (degenerative disc disease) Ganglion cyst HTN (hypertension) Malignant neoplasm of prostate Malignant neoplasm of upper lobe, left bronchus or lung Metastatic lung cancer (metastasis from lung to other site) Scalp mass Surgical History History of surgical removal of ganglion cyst Hx of tonsillectomy Port-A-Cath in place (06/16/20) Family History Father CAD (coronary artery disease) Cancer Social History Smoking and tobacco status: former smoker Quit status (tobacco): has quit using tobacco Year quit tobacco: 2020 - Hx of 1PPD x 50 Y Second hand smoke exposure: Yes Alcohol intake: former Lives independently: Yes Household members: spouse Marital status: Current occupational status: retired History of recent travel: No Current gender identity: Male Vitals/I&O/Wt Last Vital Signs Temp 98.3 F 08/22/20 08:40 Pulse 84 08/22/20 12:14 Resp 19 H 08/22/20 12:14 BP 105/64 08/22/20 12:14 Pulse Ox 98 08/22/20 12:14 Weight last 48 hrs Weight 81.647 kg Physical Exam Narrative: EXAM NARRATIVE: General exam is a pale-appearing male, in no apparent distress who is able to converse and seems to understand his predicament. HEENT: Pupils equally round. Atraumatic and normocephalic. Oropharynx clear. Neck is supple no lymphadenopathy or thyromegaly Cardiovascular regular rate and rhythm, heart sounds distant. No obvious S3 or S4. No murmur. Lungs are clear no wheezing or crackles Abdomen is soft with positive bowel sounds. No obvious organomegaly was deferred Extremities no cyanosis clubbing or edema, cap refill brisk Skin no rash Neuro no obvious focal deficits. Data : 08/22/20 08:57 08/22/20 08:57 Other data: Absolute neutrophil count is 1650 INR is 1.12 Magnesium 1.6 Calcium 8.0, albumin 3.3 Lipase 67 TSH 2.27 LFTs normal Urinalysis 0-4 reds 0-[address] abdomen and pelvis demonstrates known hepatic metastatic disease, enlarging right adrenal metastasis, and known metastatic bone disease. Chest x-ray shows left upper lobe mass, no obvious pneumonia, port is noted A&P Assessment and plan (1) Anemia: Appears to have acute on chronic blood loss anemia. Anemia has presented with chemotherapy initiation and likely represents bone marrow suppression, superimposed on some blood loss. He is symptomatic with his anemia, and therefore will be transfused 1 unit of packed red blood cells Monitor for any ongoing blood in stool. At this point I am not acutely planning for a colonoscopy. Repeat hemoglobin tomorrow Status: Acute (2) Thrombocytopenia: Secondary to recent active bleeding, significantly low platelet count less than 50,000 will transfuse 1 unit of pheresis platelets. Follow-up of platelet count in the morning Status: Acute (3) Diarrhea: Check stool for C. difficile, stool culture Monitor for reoccurrence May be secondary to chemotherapy Blood cultures, cefepime IV Status: Acute (4) GI bleeding: See notations above, acute lower GI blood loss associated with loose stool. Status: Acute (5) Hypokalemia: Supplement potassium He was given 40 mEq in the emergency department IV. We will add another 40. Status: Acute (6) Hypomagnesemia: Supplement magnesium 2 g of magnesium IV, recheck in the morning Status: Acute (7) Protein-calorie malnutrition, severe: Currently clear liquids, until status of diarrhea and GI bleeding can be determined. Status: Acute (8) Metastatic lung cancer (metastasis from lung to other site): Widely metastatic, on palliative chemotherapy with last treatment 2-1/2 weeks ago. Has some indicators of poor performance status. He is on dexamethasone 4 mg once daily. We will increase this to twice daily during this acute. Of illness. Note that he has known metastatic intracranial disease as well as bony metastasis. Status: Acute (9) COPD (chronic obstructive pulmonary disease): DuoNeb as needed Status: Acute (10) Chronic viral hepatitis C: Patient reports previous history of treatment Status: Acute Additional A&P Information Full code. I discussed this in detail with the patient and he is considering allow natural . SCDs for DVT prophylaxis. Anticoagulation contraindicated secondary to his thrombocytopenia and GI bleeding Attestations Medical Necessity Statement*: Will need greater than 2 midnight stay for evaluation and treatment of symptomatic anemia, lower GI bleeding, severe thrombocytopenia, recent chemotherapy. Time Spent in Patient Care: Greater than 35 minutes Critical Care Time: Critical Care Time (min): 46 Other Attestations: The high probability of a clinically significant, sudden or life threatening deterioration of the patient's [hematologic, GI, infectious] system(s) required my full and direct attention, intervention and personal management. The critical care time is as shown. This time is in addition to time spent performing any reported procedures but includes the following: [x] Data and vital sign review and interpretation [x] Patient assessment, examination and intervention [x] Documentation [x] Medication orders and management Coding Level of Care Code Acute Legal Operations Manager for [facility] Fwd Diagnoses Anemia D64.9 Thrombocytopenia D69.6 Diarrhea R19.7 GI bleeding K92.2 Hypokalemia E87.6 Hypomagnesemia E83.42 Protein-calorie malnutrition, severe E43 Metastatic lung cancer (metastasis from lung to other site) C34.90 COPD (chronic obstructive pulmonary disease) J44.9 Chronic viral hepatitis C B18.2
[2020-08-22 12:56] LABS: Add Urine Microscopic? YES; Bilirubin Urine 1+ (Negative); Blood Urine Neg (Negative); Glucose Urine UA Norm (Normal); Ketones Urine 1+ (Negative); Leukocyte Esterase Urine Negative (Negative); Nitrate Urine Negative (Negative); Protein Urine Trace (Negative); Urine Appearance Clear (CLEAR); Urine Color Yellow (Yellow); Urobilinogen Urine 1 mg/dL (Negative); pH Urine 6.5 (5-7)
[2020-08-22] MEDS: cefepime 2,000 MG in sodium chloride 0.9% (plus) 50 ML 100 MG IV ×2 (12:59→21:59)
[2020-08-22 13:02] LABS: Bacteria Urine TRACE /hpf; Mucus Urine TRACE /hpf; Squamous Epithelial Cell Urine 0-4 /hpf (0-5)
[2020-08-22 13:03] LABS: RBC Urine 0-4 /hpf (0-2); WBC Urine 0-4 /hpf (0-5)
[2020-08-22 13:04] LABS: Add Urine Culture? No
[2020-08-22 13:16] LABS: Magnesium 1.6 mg/dL (1.7-2.3); Thyroid Stimulating Hormone 2.27 uIU/mL (0.27-4.20)
[2020-08-22] MEDS: magnesium sulfate premix 2 GM/50 ML PIGGYBACK IV (14:59)
[2020-08-22] MEDS: dexamethasone 4 mg Tablet PO (17:09)
[2020-08-22] MEDS: sodium chloride 0.9% 1,000 ML 75 ML IV (17:09)
[2020-08-22] MEDS: sodium chloride 0.9% (100 ml) 100 ML ×2 (17:09→22:36)
[2020-08-22] MEDS: pantoprazole DR 40 mg Tablet PO (17:09)
[2020-08-22] MEDS: oxyCODONE-APAP 5-325 mg Tablet 1 TAB PO (23:46)
[2020-08-23] VITALS (32 sets, daily range): BP systolic 91–115; BP diastolic 52–75; PULSE 52–84; RESP 11–22; TEMP 36.6–37.1; O2SAT 88–100; BMI 23.0
[2020-08-23] MEDS: oxyCODONE-APAP 5-325 mg Tablet 1 TAB PO (03:59)
[2020-08-23] MEDS: cefepime 2,000 MG in sodium chloride 0.9% (plus) 50 ML 100 MG IV ×3 (04:00→21:11)
[2020-08-23] MEDS: sodium chloride 0.9% 1,000 ML 75 ML IV ×2 (04:35→18:33)
[2020-08-23 05:27] LABS: Alanine Aminotransferase 27 U/L (0-41); Albumin Level 2.9 g/dL (3.5-5.2); Alkaline Phosphatase 88 IU/L (40-130); Aspartate Amino Transferase 23 U/L (0-40); Blood Urea Nitrogen 29 mg/dL (8-23); Carbon Dioxide 25 mmol/L (22-29); Chloride 103 mmol/L (98-107); Creatinine Clr Calc Pharmacy 88.6925; Globulin 2.1 g/dL (1.3-4.6); Glucose 96 mg/dL (65-115); Magnesium 1.9 mg/dL (1.7-2.3); Osmolality Calculated 292 mOsm/kg (285-295); Sodium 138 mmol/L (136-145); Total Bilirubin 0.5 mg/dL (0.15-1.2)
[2020-08-23 05:32] LABS: Hematocrit 21.8 % (42.0-52.0); Hemoglobin 7.3 g/dL (11.7-16.6); Lymphocytes # 0.3 10^3/uL (0.8-4.8); Lymphocytes % 19.4 %; Mean Corpuscular HGB Conc 33.5 g/dL (30.0-36.0); Mean Corpuscular Hemoglobin 31.2 pg (28.0-34.0); Mean Corpuscular Volume 93.2 fL (80-94); Mean Platelet Volume 10.4 fL (7.4-10.4); Monocytes # 0.2 10^3/uL (0.2-0.9); Monocytes % 13.7 %; Neutrophils # 1.16 10^3/uL (1.8-7.7); Neutrophils % 66.3 %; Nucleated Red Blood Cells % 0 %; Platelet Count 67 10^3/cmm (130-400); Red Blood Count 2.34 10^6/uL (4.1-5.3); Red Cell Distribution Width 15.6 % (12.1-15.1); White Blood Count 1.8 10^3/uL (4.0-10.0)
[2020-08-23] MEDS: pantoprazole DR 40 mg Tablet PO ×2 (08:05→18:34)
[2020-08-23] MEDS: dexamethasone 4 mg Tablet PO ×2 (08:05→18:34)
[2020-08-23] MEDS: folic acid 1 mg Tablet PO (08:05)
--- NOTE | 2020-08-23 11:56 | PM.PN ---
Subjective Subjective: Interval history: Hospital course and H&P appreciated. Patient lying comfortably in bed. Hemodynamically stable. 100% on room air. Denies any nausea vomiting, headache. Denies any further bowel movements or blood in bowel movement since admission. Patient is evaluated of PRBC and platelet yesterday. On further discussion about his goals of care and CODE STATUS he states he does not want any heroic measures done to him to keep him alive. He states he does not want any kind of chest compression or to be put on mechanical ventilation or life support if needed. The CODE STATUS in the system has been changed to allow natural . Vitals/I&O/Wt Last Vital Signs Temp 98.0 F 08/23/20 08:00 Pulse 58 L 08/23/20 10:00 Resp 14 08/23/20 10:00 BP 104/54 08/23/20 10:00 Pulse Ox 100 08/23/20 08:37 08/22/20 08/23/20 08/23/20 22:59 06:59 14:59 Intake Total 810 / 860 1475 / 2335 Output Total 300 / 300 100 / 400 150 / 150 Balance 510 / 560 1375 / 1935 -150 / -150 Weight last 48 hrs Weight 77.111 kg Weight 81.647 kg Physical Exam Narrative: EXAM NARRATIVE: General exam is a pale-appearing male, in no apparent distress who is able to converse and seems to understand his predicament. HEENT: Pupils equally round. Atraumatic and normocephalic. Oropharynx clear. Neck is supple no lymphadenopathy or thyromegaly Cardiovascular regular rate and rhythm, heart sounds distant. No obvious S3 or S4. No murmur. Lungs are clear no wheezing or crackles Abdomen is soft with positive bowel sounds. No obvious organomegaly was deferred Extremities no cyanosis clubbing or edema, cap refill brisk Skin no rash Neuro no obvious focal deficits. Data : 08/23/20 04:39 08/23/20 04:39 Micro: Microbiology 08/22/20 12:58 Blood Culture - Preliminary Blood SPECIMEN COLLECTED 08/22/20 12:55 Blood Culture - Preliminary Blood SPECIMEN COLLECTED A&P Assessment and plan (1) Anemia: Appears to have acute on chronic blood loss anemia. Anemia has presented with chemotherapy initiation and likely represents bone marrow suppression, superimposed on some blood loss. Post monitored PRBC and platelet transfusion yesterday. Hemoglobin 7.3 today mildly low since yesterday. Most likely dilutional. We will repeat 1 more unit of blood transfusion as patient is less symptomatic but still symptomatic. Repeat hemoglobin posttransfusion. Monitor for melena or bright red blood in stool. If he has any we will consult surgery for possible EGD and colonoscopy. For now continue with Protonix twice daily as he is on high-dose steroids as well. Status: Acute (2) Thrombocytopenia: Platelet count more than 50,000 today. Hemoglobin stable. For now we will hold off on further platelet transfusion. Continue to monitor platelets. Status: Acute (3) Diarrhea: Blood cultures have remained negative. Most likely diarrhea secondary to chemotherapy. For now continue with cefepime IV as started yesterday. Stool studies still awaited. Monitor for recurrence. Status: Acute (4) GI bleeding: See notations above, acute lower GI blood loss associated with loose stool. Status: Acute (5) Hypokalemia: Supplement potassium He was given 40 mEq in the emergency department IV. We will add another 40. Status: Acute (6) Hypomagnesemia: Supplement magnesium 2 g of magnesium IV, recheck in the morning Status: Acute (7) Protein-calorie malnutrition, severe: Currently clear liquids, until status of diarrhea and GI bleeding can be determined. Status: Acute (8) Metastatic lung cancer (metastasis from lung to other site): Widely metastatic, on palliative chemotherapy with last treatment 2-1/2 weeks ago. Has some indicators of poor performance status. Continue dexamethasone 4 mg twice daily for now. Status: Acute (9) COPD (chronic obstructive pulmonary disease): DuoNeb as needed Status: Acute (10) Chronic viral hepatitis C: Patient reports previous history of treatment Status: Acute Additional A&P Information CODE STATUS: CODE STATUS changed to allow natural after discussion afterward in subjective. Clear liquid diet for now. Hemoglobin is stable will advance him to GI soft. No anticoagulation because of anemia and thrombocytopenia. If hemoglobin remains stable and no more bloody bowel movements can move him to the floors. Attestations Medical Necessity Statement*: Requires further hospitalization for management of acute on chronic blood loss anemia, thrombocytopenia Time Spent in Patient Care: Greater than 35 minutes (>than 50% of time spent in counselling and/or direct pt care on unit). Coding Level of Care Code Acute Wound/Ostomy Clinical Nurse Specialist for [facility] Fwd Diagnoses Anemia D64.9 Thrombocytopenia D69.6 Diarrhea R19.7 GI bleeding K92.2 Hypokalemia E87.6 Hypomagnesemia E83.42 Protein-calorie malnutrition, severe E43 Metastatic lung cancer (metastasis from lung to other site) C34.90 COPD (chronic obstructive pulmonary disease) J44.9 Chronic viral hepatitis C B18.2
[2020-08-23 12:29] LABS: Iron 108 ug/dL (59-158); Percent Saturation 78.2 % (20-50); Total Iron Binding Capacity 138 mcg/dl; Unsaturated Iron Binding 30 ug/dL (112-347)
[2020-08-23 12:44] LABS: Vitamin B12 728 pg/mL (232-1245)
[2020-08-23 12:45] LABS: Folate Level 17.3 ng/mL (4.5-32.2)
[2020-08-23 12:49] LABS: Ferritin 1684 ng/mL (30-400)
[2020-08-23 17:22] LABS: Hematocrit 25.5 % (42.0-52.0); Hemoglobin 8.4 g/dL (11.7-16.6)
[2020-08-24] VITALS (22 sets, daily range): BP systolic 92–121; BP diastolic 49–71; PULSE 48–64; RESP 13–18; TEMP 36.3–36.9; O2SAT 94–99
[2020-08-24] MEDS: oxyCODONE-APAP 5-325 mg Tablet 1 TAB PO ×2 (03:11→22:43)
[2020-08-24] MEDS: cefepime 2,000 MG in sodium chloride 0.9% (plus) 50 ML 100 MG IV (05:42)
--- NOTE | 2020-08-24 05:51 | PC.NURSE ---
Shift Summary Patient alert and oriented on room air, has not been able to sleep overly much and has had some low heart rates throughout the night. On Iv antibiotics, and has had no fevers so far tonight, patient has been pleasant and cooperative. He is hoping for some real food today.
[2020-08-24 05:57] LABS: Hematocrit 26.1 % (42.0-52.0); Hemoglobin 8.4 g/dL (11.7-16.6); Lymphocytes # 0.4 10^3/uL (0.8-4.8); Lymphocytes % 22.6 %; Mean Corpuscular HGB Conc 32.2 g/dL (30.0-36.0); Mean Corpuscular Hemoglobin 30.1 pg (28.0-34.0); Mean Corpuscular Volume 93.5 fL (80-94); Mean Platelet Volume 10.1 fL (7.4-10.4); Monocytes # 0.3 10^3/uL (0.2-0.9); Monocytes % 14.9 %; Neutrophils # 1.03 10^3/uL (1.8-7.7); Neutrophils % 61.3 %; Nucleated Red Blood Cells % 0 %; Platelet Count 76 10^3/cmm (130-400); Red Blood Count 2.79 10^6/uL (4.1-5.3); Red Cell Distribution Width 16.8 % (12.1-15.1); White Blood Count 1.7 10^3/uL (4.0-10.0)
[2020-08-24 06:22] LABS: Alanine Aminotransferase 22 U/L (0-41); Albumin Level 3.1 g/dL (3.5-5.2); Alkaline Phosphatase 83 IU/L (40-130); Anion Gap 16.8 (5-19); Aspartate Amino Transferase 20 U/L (0-40); Blood Urea Nitrogen 30 mg/dL (8-23); Carbon Dioxide 21 mmol/L (22-29); Chloride 105 mmol/L (98-107); Globulin 1.9 g/dL (1.3-4.6); Glucose 81 mg/dL (65-115); Osmolality Calculated 293 mOsm/kg (285-295); Potassium 3.8 mmol/L (3.5-5.1); Sodium 139 mmol/L (136-145); Total Bilirubin 0.4 mg/dL (0.15-1.2)
[2020-08-24] MEDS: dexamethasone 4 mg Tablet PO ×2 (08:22→17:29)
[2020-08-24] MEDS: pantoprazole DR 40 mg Tablet PO ×2 (08:22→17:29)
[2020-08-24] MEDS: folic acid 1 mg Tablet PO (08:22)
--- NOTE | 2020-08-24 13:08 | P.PN_ITS ---
Subjective Subjective: Interval history: No acute events overnight. Patient has not had any further bowel movements or blood in the bowel movement. Denies any nausea vomiting, headache. He states he is feeling better. Hemodynamically has remained stable. Vitals/I&O/Wt Last Vital Signs Temp 97.6 F 08/24/20 10:00 Pulse 64 08/24/20 12:00 Resp 15 08/24/20 12:00 BP 109/60 08/24/20 12:00 Pulse Ox 98 08/24/20 12:00 08/23/20 08/24/20 08/24/20 22:59 06:59 14:59 Intake Total 1700 / 2000 100 / 2100 1400 / 1400 Output Total 200 / 450 300 / 750 300 / 300 Balance 1500 / 1550 -200 / 1350 1100 / 1100 Weight last 48 hrs Weight 75.523 kg Weight 77.111 kg Physical Exam Narrative: EXAM NARRATIVE: General exam is a pale-appearing male, in no apparent distress who is able to converse and seems to understand his predicament. HEENT: Pupils equally round. Atraumatic and normocephalic. Oropharynx clear. Neck is supple no lymphadenopathy or thyromegaly Cardiovascular regular rate and rhythm, heart sounds distant. No obvious S3 or S4. No murmur. Lungs are clear no wheezing or crackles Abdomen is soft with positive bowel sounds. No obvious organomegaly was deferred Extremities no cyanosis clubbing or edema, cap refill brisk Skin no rash Neuro no obvious focal deficits. Data : 08/24/20 04:38 08/24/20 04:38 Micro: Microbiology 08/22/20 12:55 Blood Culture - Preliminary Blood NEGATIVE TO DATE 08/22/20 12:58 Blood Culture - Preliminary Blood NEGATIVE TO DATE A&P Assessment and plan (1) Leukopenia: Most likely secondary to chemotherapy. Last chemotherapy on August 07. ANC more than thousand for now. Case discussed with Dr. Jefferson. For now hold off on starting Neupogen. We will plan to give Neupogen only if ANC falls below 500. No reverse isolation for now. Levaquin 500 mg daily. Status: Acute (2) Anemia: Appears to have acute on chronic blood loss anemia. Anemia has presented with chemotherapy initiation and likely represents bone marrow suppression, superimposed on some blood loss. Post 2 units PRBC transfusion and 1 unit platelet transfusion. Hemoglobin stable at 8.4. No further bloody bowel movements. Platelet count improving. Continue to monitor CBC daily for now. Monitor for melena or bright red blood in stool. If he has any we will consult surgery for possible EGD and colonoscopy. For now continue with Protonix twice daily as he is on high-dose steroids as well. Status: Acute (3) Thrombocytopenia: Platelet count stable. Hemoglobin stable. For now we will hold off on further platelet transfusion. Continue to monitor platelets. Status: Acute (4) Diarrhea: Blood cultures have remained negative. Most likely diarrhea secondary to chemotherapy. Patient has remained afebrile. Stop Herceptin. Start patient on Levaquin 500 milligrams daily for now. Stool studies still awaited. Monitor for recurrence. Status: Acute (5) GI bleeding: See notations above, acute lower GI blood loss associated with loose stool. Status: Acute (6) Hypokalemia: Resolved. Status: Acute (7) Hypomagnesemia: Supplement magnesium 2 g of magnesium IV, recheck in the morning Status: Acute (8) Protein-calorie malnutrition, severe: Diet advanced to GI soft. Status: Acute (9) Metastatic lung cancer (metastasis from lung to other site): Widely metastatic, on palliative chemotherapy with last treatment 2-1/2 weeks ago. Has some indicators of poor performance status. Continue dexamethasone 4 mg twice daily for now. Status: Acute (10) COPD (chronic obstructive pulmonary disease): DuoNeb as needed Status: Acute (11) Chronic viral hepatitis C: Patient reports previous history of treatment Status: Acute Additional A&P Information CODE STATUS: CODE STATUS changed to allow natural after discussion afterward in subjective. Clear liquid diet for now. Hemoglobin is stable will advance him to GI soft. No anticoagulation because of anemia and thrombocytopenia. Consult to medical surgical floor. Discharge planning: Patient states he has his and daughter to take care of him at home. He states both his and daughter are finding it difficult to take care of him at home and for generalized weakness he would like to be placed at SNF. Case management has been consulted. Attestations Medical Necessity Statement*: Patient requires further hospitalization for management of pancytopenia, GI bleed requiring blood transfusion while diet is advanced and safe discharge planning to avoid readmission from falls is sought due to severe generalized deconditioning from advanced cancer. Time Spent in Patient Care: Greater than 35 minutes (>than 50% of time spent in counselling and/or direct pt care on unit) . Coding Level of Care Code Acute Reservoir Engineering Manager for [facility] Fwd Diagnoses Leukopenia D72.819 Anemia D64.9 Thrombocytopenia D69.6 Diarrhea R19.7 GI bleeding K92.2 Hypokalemia E87.6 Hypomagnesemia E83.42 Protein-calorie malnutrition, severe E43 Metastatic lung cancer (metastasis from lung to other site) C34.90 COPD (chronic obstructive pulmonary disease) J44.9 Chronic viral hepatitis C B18.2
[2020-08-24] MEDS: sodium chloride 0.9% 1,000 ML 75 ML IV (21:48)
[2020-08-25] VITALS (12 sets, daily range): BP systolic 107–126; BP diastolic 66–74; PULSE 46–78; RESP 14–18; TEMP 36.6–36.9; O2SAT 97–98
[2020-08-25] MEDS: oxyCODONE-APAP 5-325 mg Tablet 1 TAB PO ×2 (02:48→22:53)
--- NOTE | 2020-08-25 05:09 | PC.NURSE ---
Shift Summary Patient is alert and oriented, had better sleep tonight when we switched out his ICU bed for a med surg bed. He is still on IVF and tolerating them well, urine output has picked up some from last night. Patient is appropriate and cooperative, has had very little complaints of pain, Patient is on room air and still bradicardic, but blood pressures are good. Patient needs to get up with PT and work with OT so he can go to a skilled facility temporarily until he gets stronger. His hemoglobin has been stable
[2020-08-25] MEDS: levoFLOXacin 500 mg Tablet PO (06:30)
[2020-08-25] MEDS: folic acid 1 mg Tablet PO (08:40)
[2020-08-25] MEDS: dexamethasone 4 mg Tablet PO ×2 (08:40→18:05)
[2020-08-25] MEDS: pantoprazole DR 40 mg Tablet PO ×2 (08:40→18:05)
--- NOTE | 2020-08-25 09:45 | PC.RESP ---
PULMONARY REHAB INFORMATION SENT TO PATIENT.
--- NOTE | 2020-08-25 11:33 | PC.SOCIAL ---
*IMM UPDATE* Gave patient IMM update. Provided him copy of pg 2. Verbalized understanding. Initialed, dated, timed and placed in chart.
[2020-08-25 12:59] LABS: Hematocrit 25.9 % (42.0-52.0); Hemoglobin 8.6 g/dL (11.7-16.6); Lymphocytes # 0.3 10^3/uL (0.8-4.8); Lymphocytes % 18.5 %; Mean Corpuscular HGB Conc 33.2 g/dL (30.0-36.0); Mean Corpuscular Hemoglobin 30.4 pg (28.0-34.0); Mean Corpuscular Volume 91.5 fL (80-94); Mean Platelet Volume 9.9 fL (7.4-10.4); Monocytes # 0.3 10^3/uL (0.2-0.9); Monocytes % 17.9 %; Neutrophils # 1.05 10^3/uL (1.8-7.7); Neutrophils % 57.1 %; Nucleated Red Blood Cells % 0 %; Platelet Count 93 10^3/cmm (130-400); Red Blood Count 2.83 10^6/uL (4.1-5.3); Red Cell Distribution Width 15.9 % (12.1-15.1); White Blood Count 1.8 10^3/uL (4.0-10.0)
[2020-08-25 14:49] LABS: Slide Review Slide Review Perform
[2020-08-25] MEDS: sodium chloride 0.9% 1,000 ML 75 ML IV (15:18)
--- NOTE | 2020-08-25 18:37 | P.PN_ITS ---
Subjective Subjective: Interval history: Denies any recurrence of hematochezia, melena, denies any bowel movements. No nausea or vomiting. No abdominal pain. Overall is doing well, apart from significant deconditioning, easy fatigability with exertion. Vitals/I&O/Wt Last Vital Signs Temp 98.2 F 08/25/20 16:00 Pulse 57 L 08/25/20 16:00 Resp 18 08/25/20 16:00 BP 126/74 08/25/20 16:00 Pulse Ox 97 08/25/20 16:00 08/25/20 08/25/20 08/25/20 06:59 14:59 22:59 Intake Total 1030 / 1030 240 / 1270 Output Total 550 / 1075 725 / 725 550 / 1275 Balance -550 / 685 305 / 305 -310 / -5 Weight last 48 hrs Weight 78.335 kg Weight 75.523 kg Physical Exam Const: COMMON NORMALS: no acute distress and patient oriented x3 HENMT: COMMON NORMALS: oropharynx normal TEETH & GINGIVA: Yes edentulous Neck/C-Spine: COMMON NORMALS: no JVD Chest: OTHER: Right chest port Resp: COMMON NORMALS: normal respiratory effort and clear to auscultation bilaterally AUSCULTATION: clear to auscultation bilaterally Cardio: COMMON NORMALS: no JVD, regular rhythm, S1 normal heart sound present, S2 normal heart sound present and No murmurs present (Cardio) RHYTHM: regular rhythm HEART SOUNDS: S1 normal heart sound present and S2 normal heart sound present GI: COMMON NORMALS: Normal to inspection, nondistended, normoactive bowel sounds present, Soft to palpation and non-tender PALPATION: Yes Soft to palpation Extremity: COMMON NORMALS: no joint enlargement and no pedal edema Neuro: COMMON NORMALS: patient oriented x3 and moves all extremities Skin: OTHER: Bruising, petechia, no oral petechia or blood blisters. Data : 08/25/20 12:37 08/24/20 04:38 A&P Assessment and plan (1) Leukopenia: Appears to have stabilized. ANC stabilized at 1000. Thrombocytopenia showing improvement. Anemia stable. Most likely secondary to chemotherapy. Last chemotherapy on August 07. ANC more than thousand for now. Case discussed with Dr. Jefferson. For now hold off on starting Neupogen. We will plan to give Neupogen only if ANC falls below 500. No reverse isolation for now. Levaquin 500 mg daily. Status: Acute (2) Anemia: Appears to have acute on chronic blood loss anemia. Anemia has presented with chemotherapy initiation and likely represents bone marrow suppression, superimposed on some blood loss. Post 2 units PRBC transfusion and 1 unit platelet transfusion. Hemoglobin stable at 8.4. No further bloody bowel movements. Platelet count improving. Continue to monitor CBC daily for now. Monitor for melena or bright red blood in stool. If he has any we will consult surgery for possible EGD and colonoscopy. For now continue with Protonix twice daily as he is on high-dose steroids as well. Status: Acute (3) Thrombocytopenia: Improving. Status: Acute (4) GI bleeding: So far appears to have resolved. Platelets are improving. Requiring steroid. Continue PPI twice daily. Status: Acute (5) Diarrhea: So far resolved. Blood cultures have remained negative. Most likely diarrhea secondary to chemotherapy. Patient has remained afebrile. Stop Herceptin. Start patient on Levaquin 500 milligrams daily for now. Stool studies still awaited and so far no bowel movement. Monitor for recurrence. Status: Acute (6) Hypokalemia: Resolved. Status: Acute (7) Hypomagnesemia: Replaced Status: Acute (8) Protein-calorie malnutrition, severe: GI soft diet Status: Acute (9) Metastatic lung cancer (metastasis from lung to other site): Resume follow-up with oncology after discharge. Widely metastatic, on palliative chemotherapy with last treatment 2-1/2 weeks ago. Has some indicators of poor performance status. Continue dexamethasone 4 mg twice daily for now. Status: Acute (10) COPD (chronic obstructive pulmonary disease): DuoNeb as needed Status: Acute (11) Chronic viral hepatitis C: Reported previous history of treatment Status: Acute Additional A&P Information Physical deconditioning: Pending arrangements for placement to SNF for rehabilitation. Discharge planning: Patient states he has his and daughter to take care of him at home. He states both his and daughter are finding it difficult to take care of him at home and for generalized weakness he would like to be placed at SNF. Case management has been consulted. Attestations Medical Necessity Statement*: Continue hospitalization for monitoring of persistent neutropenia, ANC 1000, and gentleman with metastatic cancer, immunosuppression, on steroids, treatment with PPI for GI bleeding. Continue arrangements for placement to SNF for rehabilitation. Coding Level of Care Code Acute Asset Protection Officer for [facility] Fwd Diagnoses Leukopenia D72.819 Anemia D64.9 Thrombocytopenia D69.6 GI bleeding K92.2 Diarrhea R19.7 Hypokalemia E87.6 Hypomagnesemia E83.42 Protein-calorie malnutrition, severe E43 Metastatic lung cancer (metastasis from lung to other site) C34.90 COPD (chronic obstructive pulmonary disease) J44.9 Chronic viral hepatitis C B18.2
[2020-08-26] VITALS (7 sets, daily range): BP systolic 106–131; BP diastolic 64–78; PULSE 52–81; RESP 16–18; TEMP 36.5–37.2; O2SAT 97–99
[2020-08-26] MEDS: sodium chloride 0.9% 1,000 ML 75 ML IV (04:02)
[2020-08-26] MEDS: oxyCODONE-APAP 5-325 mg Tablet 1 TAB PO (05:28)
[2020-08-26] MEDS: levoFLOXacin 500 mg Tablet PO (05:29)
[2020-08-26 06:19] LABS: Basophils % 0.5 %; Hemoglobin 9.1 g/dL (11.7-16.6); Lymphocytes # 0.4 10^3/uL (0.8-4.8); Lymphocytes % 20.2 %; Mean Corpuscular HGB Conc 33.7 g/dL (30.0-36.0); Mean Corpuscular Hemoglobin 30.7 pg (28.0-34.0); Mean Corpuscular Volume 91.2 fL (80-94); Mean Platelet Volume 10.2 fL (7.4-10.4); Monocytes # 0.4 10^3/uL (0.2-0.9); Monocytes % 16.5 %; Neutrophils # 1.27 10^3/uL (1.8-7.7); Neutrophils % 58.2 %; Nucleated Red Blood Cells % 0 %; Platelet Count 105 10^3/cmm (130-400); Red Blood Count 2.96 10^6/uL (4.1-5.3); Red Cell Distribution Width 15.7 % (12.1-15.1); White Blood Count 2.2 10^3/uL (4.0-10.0)
[2020-08-26] MEDS: pantoprazole DR 40 mg Tablet PO (08:06)
[2020-08-26] MEDS: folic acid 1 mg Tablet PO (08:06)
[2020-08-26] MEDS: dexamethasone 4 mg Tablet PO (08:06)
[2020-08-26 09:38] LABS: Anion Gap 12.7 (5-19); Blood Urea Nitrogen 15 mg/dL (8-23); Calcium 8.1 mg/dL (8.5-10.5); Carbon Dioxide 25 mmol/L (22-29); Chloride 100 mmol/L (98-107); Glucose 90 mg/dL (65-115); Magnesium 1.4 mg/dL (1.7-2.3); Osmolality Calculated 278 mOsm/kg (285-295); Potassium 3.7 mmol/L (3.5-5.1); Sodium 134 mmol/L (136-145)
--- NOTE | 2020-08-26 13:59 | PC.OT ---
OT note: Pt reported too fatigued and sore today as he already had PT earlier. He requested hold at this time. Will attempt again tomorrow as able.
--- NOTE | 2020-08-26 14:08 | P.DS_ITS ---
Discharge Providers Date of Admission: 08/22/20 12:33 Date of Discharge: August 26, 2020 Attending Provider at Admission: Rufino Lundberg MD Attending Provider at Discharge: Alhaji Flores Primary Care Provider: Dali Jimenez MD Diagnoses at Discharge Discharge Diagnosis (1) Leukopenia: Status: Acute (2) Anemia: Status: Acute (3) Thrombocytopenia: Status: Acute (4) GI bleeding: Status: Acute (5) Diarrhea: Status: Acute (6) Hypokalemia: Status: Acute (7) Hypomagnesemia: Status: Acute (8) Protein-calorie malnutrition, severe: Status: Acute (9) Metastatic lung cancer (metastasis from lung to other site): Status: Acute (10) COPD (chronic obstructive pulmonary disease): Status: Acute (11) Chronic viral hepatitis C: Status: Acute Permanent problem details: With reported prior treatment. Reason for Visit Reason for Visit: multiple complaints Hospital Course Hospital Course Pleasant 75-year-old gentleman with metastatic lung cancer on chronic steroid, last chemotherapy 2-1/2 weeks previously among other disorders was admitted for assessment management after presenting with severe weakness, symptomatic anemia, with pancytopenia, diarrhea with bright red blood per rectum, hypokalemia, hypomagnesemia. Required PRBC transfusion 2 units, platelet transfusion. Was treated with IV PPI. Was treated empirically with cefepime initially, subsequently transitioned to Levaquin. C. difficile, stool culture, ova parasites were requested, but not collected due to resolution of diarrhea after admission. His blood counts eventually stabilized. He not requiring additional platelet transfusions. Neupogen was considered due to neutropenia, however, absolute neutrophil count stabilized around 1000. Currently both platelets and neutrophils have been rising. Today ANC 1270, platelets 105,000, hemoglobin 9.1. He has been feeling much better. He has been tolerating oral intake well. Once neutropenia resolved, consideration may be given to assessment by endos copic evaluation to closer assess for the cause of bleeding. Although, he is on chronic steroid, and at this time and this is continued. He will continue on PPI twice daily. Due to physical deconditioning he was interested in pursuing rehabilitation at SNF prior to return home. Due to some muscle cramps noted today, magnesium level was checked and he is receiving replacement of hypomagnesemia, with magnesium level of 1.5. Please reassess blood counts and magnesium at the next appointment. Physical Exam Const: COMMON NORMALS: no acute distress and patient oriented x3 HENMT: COMMON NORMALS: oropharynx normal TEETH & GINGIVA: Yes edentulous Neck/C-Spine: COMMON NORMALS: no JVD Chest: OTHER: Right chest port Resp: COMMON NORMALS: normal respiratory effort and clear to auscultation bilaterally AUSCULTATION: clear to auscultation bilaterally Cardio: COMMON NORMALS: no JVD, regular rhythm, S1 normal heart sound present, S2 normal heart sound present and No murmurs present (Cardio) RHYTHM: regular rhythm HEART SOUNDS: S1 normal heart sound present and S2 normal heart sound present GI: COMMON NORMALS: Normal to inspection, nondistended, normoactive bowel sounds present, Soft to palpation and non-tender PALPATION: Yes Soft to palpation Extremity: COMMON NORMALS: no joint enlargement and no pedal edema Neuro: COMMON NORMALS: patient oriented x3 and moves all extremities Skin: COMMON NORMALS: no rashes or lesions noted GENERAL SKIN EXAM: no rashes or lesions noted OTHER: Bruising, petechia, no oral petechia or blood blisters. Discharge Data Data Completed and Pending: Completed Studies During Hospitalization Category Date Time Status CT abdomen pelvis w con* [id number] Stat Cat Scan 08/22/20 08:47 Completed Pending at discharge Category Date Time Status ABO/Rh Type Routi ne Lab 08/22/20 12:55 Results Blood Culture Sta t Lab 08/22/20 12:58 Results Clostridioides Di fficile PCR Routin e Lab 08/22/20 12:37 Uncollected Complete Blood Co unt w/Auto AM LABS Lab 08/27/20 04:00 Ordered Complete Blood Co unt w/Auto AM LABS Lab 08/28/20 04:00 Ordered Complete Crossmat ch Routine Lab 08/22/20 12:55 Results Enteric Bacterial Panel by PCR Rout ine Lab 08/22/20 12:37 Uncollected Leukocyte Reduced RBC Routine Lab 08/22/20 12:55 Results Platelets Leuko-R educed Routine Lab 08/22/20 12:55 Results Type and Screen R outine Lab 08/22/20 12:55 Results Labs from last 24 hours 08/26/20 08/26/20 08/25/20 05:17 05:17 12:37 WBC 2.2 L 1.8 L RBC 2.96 L 2.83 L Hgb 9.1 L 8.6 L Hct 27.0 L 25.9 L MCV 91.2 91.5 MCH 30.7 30.4 MCHC 33.7 33.2 RDW 15.7 H 15.9 H Plt Count 105 L 93 L MPV 10.2 9.9 Neut % (Auto) 58.2 57.1 Lymph % (Auto) 20.2 18.5 [place] % (Auto) 16.5 17.9 Eos % (Auto) 0.0 0.0 Baso % (Auto) 0.5 0.0 Neut # (Auto) 1.27 L 1.05 L Lymph # (Auto) 0.4 L 0.3 L [place] # (Auto) 0.4 0.3 Eos # (Auto) 0.0 0.0 Baso # (Auto) 0.0 0.0 Nucleated RBC % (a uto) 0 0 Nucleated RBCs # 0.0 0.0 Sodium 134 L Potassium 3.7 Chloride 100 Carbon Dioxide 25 Anion Gap 12.7 BUN 15 Creatinine 0.5 L GFR Calculation Not Reportable Glucose 90 Calculated Osmolal ity 278 L Calcium 8.1 L Magnesium 1.4 L Vitals: Last Vital Signs Temp 99.0 F 08/26/20 11:26 Pulse 55 L 08/26/20 11:26 Resp 18 08/26/20 11:26 BP 128/64 08/26/20 11:26 Pulse Ox 99 08/26/20 11:26 Discharge Plan Discharge Patient Disposition: Xfer SNF Condition: Stable Prescriptions: New levofloxacin 500 mg Tablet 500 mg PO DAILY@0600 Qty: 3 RF: 0 pantoprazole 40 mg Tablet,Delayed Release (Dr/Ec) 40 mg PO BID Qty: 60 RF: 0 Continued dexamethasone 4 mg tablet 4 mg PO DAILY@08 RF: 0 prochlorperazine maleate 10 mg tablet 10 mg PO Q4H PRN (Reason: Nausea) RF: 0 lorazepam [Ativan] 1 mg Tablet 1 mg PO TID PRN (Reason: Nausea) RF: 0 folic acid 1 mg tablet 1 mg PO DAILY@08 RF: 0 oxycodone-acetaminophen 5-325 mg tablet 1 tab PO Q4H PRN (Reason: Pain) RF: 0 Discharge Orders: Discharge Order (Routine); Ordered 08/26/20 Ordered By: Alhaji Flores Referrals: Galindo Jefferson MD [Staff Physician] - 2 weeks Discharge Diet: GI Soft Discharge Activity: Increase activity as tolerated and As per PT/OT instructions Patient Instructions: Opioid Safety Activity Restrictions/Additional Instructions: Add protein supplements to meals. Please follow-up CBC on Tuesday for follow-up of pancytopenia. Once neutropenia resolves, consider referral for endoscopic evaluation of GI bleeding. Discharge Attestations Time Spent in Discharge Care*: greater than 30 min Quality Metrics Clinical Quality Measures During this hospital stay, did patient experience: None Coding Level of Care Code Acute Chg FW DC note Diagnoses Leukopenia D72.819 Anemia D64.9 Thrombocytopenia D69.6 GI bleeding K92.2 Diarrhea R19.7 Hypokalemia E87.6 Hypomagnesemia E83.42 Protein-calorie malnutrition, severe E43 Metastatic lung cancer (metastasis from lung to other site) C34.90 COPD (chronic obstructive pulmonary disease) J44.9 Chronic viral hepatitis C B18.2
[2020-08-26] MEDS: magnesium sulfate premix 2 GM/50 ML PIGGYBACK IV (14:58)
[2020-08-26] MEDS: potassium chloride ER 20 mEq Tablet PO (14:58)
--- NOTE | 2020-08-26 16:37 | PC.NURSE ---
1637 report called to Christina at [facility]. patient wheeled to private vehicle for daughter to transport to facility. pt verbalizes understanding of follow up instructions and discharge information.
== END 2020-08-26 16:57 | disposition skilled nursing facility (03) | DRG 811 ==
LOC: ER 09:06 → ICU 13:06 → MEDSURG 08-24 12:50
PROVIDERS: Student in an Organized Health Care Education/Training Program; Admitting Provider Internal Medicine; Emergency Provider Family Medicine; PCP Family Medicine; Visit Provider Internal Medicine
DX: D64.81 Anemia due to antineoplastic chemotherapy (principal); E43 Unspecified severe protein-calorie malnutrition; C34.12 Malignant neoplasm of upper lobe, left bronchus or lung; C78.01 Secondary malignant neoplasm of right lung; C79.31 Secondary malignant neoplasm of brain; K52.1 Toxic gastroenteritis and colitis; K92.2 Gastrointestinal hemorrhage, unspecified; T45.1X5A Adverse effect of antineoplastic and immunosuppressive drugs, initial encounter; Z79.899 Other long term (current) drug therapy; Z92.3 Personal history of irradiation; B18.2 Chronic viral hepatitis C; J44.9 Chronic obstructive pulmonary disease, unspecified; I10 Essential (primary) hypertension; C61 Malignant neoplasm of prostate; Z95.828 Presence of other vascular implants and grafts; Z87.891 Personal history of nicotine dependence; D69.59 Other secondary thrombocytopenia; E83.42 Hypomagnesemia; Z68.23 Body mass index [BMI] 23.0-23.9, adult; Z66 Do not resuscitate; E87.6 Hypokalemia; Z79.891 Long term (current) use of opiate analgesic; D70.1 Agranulocytosis secondary to cancer chemotherapy; Z79.52 Long term (current) use of systemic steroids
CPT/HCPCS: 36415; 36430; 36591; 74177; 80048; 80053; 81001; 82607; 82728; 82746; 83540; 83550; 83690; 83735; 84443; 85014; 85018; 85025; 85610; 85730; 86850; 86900; 86920; 87040; 96372; 97110; 97116; 97162; 97165; 97530; 99285; J0692; J2550; J3475; J3480; J7030; J8540; P9016; P9035; Q9967

== ENCOUNTER 2020-09-04 08:22 | Outpatient (RCR) | payer OTHER, SELFPAY ==
[2020-09-04 10:51] LABS: Basophils % 0.2 %; Hematocrit 32.5 % (42.0-52.0); Hemoglobin 10.9 g/dL (11.7-16.6); Lymphocytes # 0.9 10^3/uL (0.8-4.8); Lymphocytes % 9.8 %; Mean Corpuscular HGB Conc 33.5 g/dL (30.0-36.0); Mean Corpuscular Hemoglobin 31.1 pg (28.0-34.0); Mean Corpuscular Volume 92.6 fL (80-94); Mean Platelet Volume 9.1 fL (7.4-10.4); Monocytes # 0.7 10^3/uL (0.2-0.9); Monocytes % 7.9 %; Neutrophils # 7.26 10^3/uL (1.8-7.7); Neutrophils % 79.9 %; Nucleated Red Blood Cells % 0 %; Platelet Count 190 10^3/cmm (130-400); Red Blood Count 3.51 10^6/uL (4.1-5.3); Red Cell Distribution Width 16.9 % (12.1-15.1); White Blood Count 9.1 10^3/uL (4.0-10.0)
[2020-09-04 11:07] LABS: Alanine Aminotransferase 35 U/L (0-41); Albumin Level 3.8 g/dL (3.5-5.2); Alkaline Phosphatase 104 IU/L (40-130); Anion Gap 16.5 (5-19); Aspartate Amino Transferase 24 U/L (0-40); Blood Urea Nitrogen 10 mg/dL (8-23); Calcium 8.5 mg/dL (8.5-10.5); Carbon Dioxide 25 mmol/L (22-29); Chloride 97 mmol/L (98-107); Globulin 2.5 g/dL (1.3-4.6); Glucose 89 mg/dL (65-115); Osmolality Calculated 279 mOsm/kg (285-295); Potassium 3.5 mmol/L (3.5-5.1); Sodium 135 mmol/L (136-145); Total Bilirubin 0.5 mg/dL (0.15-1.2); Total Protein 6.3 g/dL (6.6-8.7)
--- NOTE | 2020-09-05 12:47 | ONC FU_ITS ---
Dr. Jefferson follow up note Patient: Rubén Vicente Unit #: [id number]: [id number] Dicatated By: Galindo Jefferson M.D.Date of Visit:September 04, 2020 Onc Med Follow-up/Prog Note History of Present Illness: Mr. 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 In December 2019 he developed progressive headaches and eventually underwent MRI scan of the brain January 17, 2020. This did show 3 enhancing lesions with surrounding edema involving the left side of the brainstem at the level of the katy. There was edema involving portion of the anterior left side cerebellum. The fourth ventricle demonstrated mild mass-effect from the edema. Supratentorially there was an enhancing lesion in the right thalamus with a large amount of surrounding edema causing midline shift from left to right???approximately 4 to 5 mm. There was an enhancing lesion with surrounding edema involving the cortex and deep white matter of the right occipital lobe. Mr. Vicente underwent CT scan of the chest which showed a large mass measuring 6.5 x 5.1 x 5.3 cm in the left upper lobe and also another nodule in the same lobe. He underwent bronchoscopy with transbronchial biopsy on February 15, 2020. The pathology showed poorly differentiated adenocarcinoma, favor lung region as immunohistochemistry stains were positive for TTF-1???1, Napsin, CK cocktail, CK7 and negative for PSA, p63, synaptophysin, CK20, CK 5/6 and chromogranin A as well as CDX2. Mr. Vicente reported that he had not had any hemoptysis or hematemesis. He denied any bone pain or any jaundice. He had no trouble swallowing. But he had lost about 10 pounds in the months prior to the work-up. Mr. Vicente has a history of prostate cancer diagnosed in April 2015. The Kyung score was [address] scan of the abdomen pelvis and bone scan did not show any evidence of metastatic disease at that time. As he was high risk he was treated with Eligard and radiation therapy. He did continue taking Eligard every 3 months and the last dose was given in December 2019. Mr. Vicente has a smoking history of 50 years but states he quit in December 2019. He does have a history of alcohol use but mostly beer only. Mr. Vicente underwent radiation for his brain metastasis. He had been having worsening of his handwriting and questionable memory loss. He did start on dexamethasone on January 17, 2020 as the MRI was positive for brain mets. He then was referred to radiation oncology. He is received a total of 30 cGy from March 03, 2020 until March 18, 2020. He tolerated it well and was able to taper down the dexamethasone. He did have a PET CT scan on March 01, 2020 which showed a 4 x 4.6 x 3.8 left upper lobe mass with central necrosis with an SUV of 12.8 and a second solid nodule in the left upper lobe measuring 1.2 x 0.9 cm. This was FDG negative. Local metastatic disease was present in the superior left hilar node measuring 1.3 cm with an SUV of 5.2. There was questionable uptake in the subaortic node that was felt to be likely reactive . Molecular profiling reported on May 13, 2020 confirmed PD-L1 (22 C3) positive, TPS 15% which equates benefit from pembrolizumab. He did have PD-L1 (28???8) positive at 1+ which equated to 25% benefit from nivolumab/ipilimumab. He was negative for ALK, EGFR, KRAS, BRAF, ROS1 and MET. offered treatment with chemo immunotherapy with agents being pembrolizumab/carboplatin/Alimta every 3 weeks with a plan to repeat the PET CT imaging after the third cycle to assess response.Started on June 26, 2020 Went to [facility] on July 08, 2020 with constipation and episode of blood in his stool and epistaxis, as per patient mag citrate relieved his constipation at home but then caused self-limiting small blood in his stools in the ER his white blood count was 5.2 hemoglobin 10 hematocrit 30.1 platelets 103,000, CT scan of abdomen pelvis was done on July 08, 2020 which showed numerous hypoattenuating masses scattered throughout the liver largest in the left lobe measuring 2.7 x 3.1 cm and right adrenal mass with mild enhancement measuring 3.0 x 4.4 cm peripherally enhancing mass in the left gluteus ora measurement 2.4 cm, chest x-ray showed 4.6 cm mass in the left upper lobe of the lung Follow-up CT PET scan done on August 16, 2020, confirm no change in the size of right adrenal malignant mass, mild improvement in the size of multifocal hepatic metastatic disease, stable left gluteal malignant implant. Cautious lesions in the abdomen pelvis are largely radiographically occult. Retrocaval node is larger in size when compared with the previous. Patient was admitted to hospital on August 26, 2020 with severe bone marrow suppression and diarrhea, patient required 2 units of packed RBC,, initial impression was could be due to immunotherapy related colitis but his diarrhea improved and no more episode of blood in his stool. His electrolytes were supplemented. Came for follow-up, denies any specific complaint except generalized weakness and fatigue, patient and his daughter think chemo was something too much for him to handle and patient does not want take immunotherapy either at least at this point as he got about related side effect and toxicity., Denies any fever chills, denies any nausea or vomiting denies any diarrhea or constipation denies any more episode of bleeding per rectum denies any hemoptysis or hematemesis denies any abdominal pain . Medications: Cholecalciferol 1 Tablet (of 100 mcg ) Oral daily, Dexamethasone 1 Tablet (of 4 mg) Oral daily, Folic Acid 1 Tablet (of 400 mcg) Oral daily, Multivitamin 1 Tablet Oral daily Allergies: No Known Allergies. Review of Systems: Review of Systems is not available for this patient. Vital Signs: Performed on September 04, 2020 11:47 Height - 72.00 in Temperature - 97.2 F (LOW) Pulse - 98 /min Respiration - 18 /min BP - 123/91 mm(hg) O2 Sat - 98 % Pain - 0 Performance Status: 2 - Ambulatory/capable of all self-care, unable to perform any work activities. Up and about more than 50% of waking hours. (ECOG) Physical Examination: ENMT - No mouth sores, no thrush, no jaundice, no lymphadenopathy, Respiratory - Poor air entry otherwise clear, Cardiovascular - Regular rate and rhythm of heart, Abdomen - Soft, bowel sounds present, Extremities - 1+ edema bilaterally. Lab/Imaging: Test performed on Aug 11, 2020 13:30 Magnesium 1.7 mg/dL Sodium 135 mmol/L Potassium 3.4 mmol/L Chloride 99 mmol/L CO2 26 mmol/L Anion Gap 13.4 BUN 19 mg/dL Creatinine 0.7 mg/dL Cr Clearance (Est) 108.9400 mL/min Glucose 99 mg/dL Osmolality - Calculated 282 mOsm/kg Calcium 8.1 mg/dL Protein, Total 5.7 g/dL Albumin 3.4 g/dL Globulin 2.3 g/dL Bilirubin, Total 0.5 mg/dL ALT (SGPT) 33 U/L AST (SGOT) 32 U/L Alkaline Phosphatase 103 IU/L WBC 2.9 10 3/uL RBC 2.56 10 6/uL HGB 8.1 g/dL HCT 25.3 % MCV 98.8 fL MCH 31.6 pg MCHC 32.0 g/dL RDW 16.8 % Platelet Count 165 10 3/cmm MPV 9.1 fL Neutrophils 2.61 10 3/uL Lymphocytes 0.3 10 3/uL Monocytes 0.0 10 3/uL Eosinophils 0.0 10 3/uL Basophils 0.0 10 3/uL Neutrophil % 89.2 % Lymphocyte % 9.2 % Monocyte % 1.0 % Eosinophil % 0.0 % Basophils % 0.3 % NRBC % 0 % CBC Slide Review Slide Review Perform Test performed on Aug 07, 2020 08:15 TSH 2.36 uIU/mL Test performed on Jul 17, 2020 07:57 NRBC 0.0 /100 WBC Impression: 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 per transbronchial biopsy done on February 15, 2020 immunohistochemistry positive for TTF-1, Napsin, CK cocktail, CK7 and negative for PSA, p63, synaptophysin, CK20, CK 5/6 and CDX2, chromogranin A MRI scan of the brain done on January 17, 2020 shows brain mets,Status post radiation therapy completed on March 18, 2020 clinical stage IV, Molecular profiling reported on May 13, 2020 is positive for PD-L1 (22c3), TPS 15% indicate benefit from pembrolizumab and PD-L1 (28???8) positive , 1+, 25% indicate benefit from nivolumab/ipilimumab combination And negative for ALK, BRAF, EGFR, ROS1, K-john,, MSI stable, tumor mutational burden 7% which is low. NTRK indeterminate CT PET scan done on March 01, 2020 showed hypermetabolic left upper lobe mass 4 x 4.6 x 3.8 cm and a second solid nodule in the left upper lobe measuring 1.2 x 0.9 cm is FDG negative. Local metastatic disease is present in the superior left hilar node measuring 1.3 cm with SUV of 5.2. History of prostate cancer, high risk diagnosed in April 2015, with negative CT scan of abdomen pelvis and bone scan but high [place] score, being high risk patient status post ADT/radiation therapy followed by Susanna every 3-month till December 2018. discussed with Mr Vicente his disease status and recently obtained molecular profiling report. The molecular confirmed negative for ALK, EGFR, ROS1, K-john, BRAF, MET but positive for PD-L1 with that information, recommended chemo immunotherapy with pembrolizumab/carboplatin/Alimta every 3 weeks and repeat PET/CT scan after third cycle to assess the response. Mr. Vicente is here today for his first cycle of chemo/immunotherapy. Mr. Vicente had placement of a PowerPort in the right subclavian vein by Dr. Tavares on June 16, 2020.. Follow-up CT PET scan done after 3 cycles of chemotherapy with carboplatin/alimta /Keytruda on August 16, 2020 showed no change in the size of right adrenal malignant mass. Mild improvement in the size of multifocal hepatic metastatic disease, stable left gluteal malignant implant. Osseous lesions in abdomen pelvis are largely radiographically occult. Retrocaval node is larger in size. Plan: Discussed with patient regarding his labs white blood count 9.1 hemoglobin 10.9 hematocrit 32.5 platelets 190,000 CMP within normal limits Clinically, patient doing reasonably well, his follow-up CT PET scan done after 3 cycles of chemotherapy with Keytruda/carbo/Alimta shows mixed response, improvement in multiple level lesions and increase in size of retrocaval lymph node and stable right adrenal mass and left gluteal malignant implant but patient had significant side effect due to chemoimmunotherapy and now reluctant to continue but may consider something less toxic, in that case we may consider weekly carboplatin/Taxol, hopefully, he may tolerate it well, also discussed about hospice patient wants to try systemic chemotherapy first and if could not tolerate and is a disease progression then he might consider All the side effect possible benefits associated with weekly carboplatin/Taxol were discussed including but not limited to bone marrow suppression, nausea vomiting, hair loss, peripheral neuropathy, hyperglycemia especially with steroids, further teaching from the chemotherapy nurse and the patient expressed full understanding will consider carboplatin AUC 2 and Taxol 50 mg per metered square weekly day 1 and 8 and repeat every 21 days. He will return to clinic 1 week after chemotherapy initiated with CBC CMP Signed By: Galindo Jefferson M.D. <<Signature on File>>
== END 2020-09-15 23:59 | disposition home or self-care (01) ==
LOC: ONCMED 08:22
PROVIDERS: PCP Family Medicine; Visit Provider Internal Medicine Hematology & Oncology
DX: C34.12 Malignant neoplasm of upper lobe, left bronchus or lung (principal); C79.31 Secondary malignant neoplasm of brain; C78.7 Secondary malignant neoplasm of liver and intrahepatic bile duct; C79.51 Secondary malignant neoplasm of bone; G62.0 Drug-induced polyneuropathy; T45.1X5A Adverse effect of antineoplastic and immunosuppressive drugs, initial encounter; R73.9 Hyperglycemia, unspecified; Z92.21 Personal history of antineoplastic chemotherapy; Z92.3 Personal history of irradiation; Z79.899 Other long term (current) drug therapy
CPT/HCPCS: 36591; 80053; 85025; 99214

== ENCOUNTER 2020-09-29 16:14 | Outpatient (CLI) | payer OTHER, MEDICARE, SELFPAY ==
--- NOTE | 2020-09-29 17:02 | XRR_ITS ---
PROCEDURE INFORMATION: Exam: XR Abdomen Exam date and time: 09/29/2020 5:02 PM Age: 75 years old Clinical indication: Abdominal pain; Other: Lower quadrant; Additional info: Constipation, lower quadrant abd. Pain TECHNIQUE: Imaging protocol: XR of the abdomen. Views: 2 Views. Upright and supine views. COMPARISON: CT abdomen pelvis w con* [id number] 08/22/2020 10:00 AM FINDINGS: Gastrointestinal tract: Normal. No bowel dilation. Moderate fecal volume. Intraperitoneal space: Normal. No free air. Vasculature: Scattered atherosclerosis. Bones/joints: Diffuse lumbar spine spondyloarthropathy changes. Diffuse osseous demineralization changes. XR/XR abdomen min 2V [id number] IMPRESSION: No acute abdominal findings.
== END 2020-09-29 16:15 | disposition home or self-care (01) ==
PROVIDERS: PCP Family Medicine; Visit Provider Nurse Practitioner
DX: K59.00 Constipation, unspecified (principal); R10.30 Lower abdominal pain, unspecified
CPT/HCPCS: 74019

== ENCOUNTER 2020-10-03 09:42 | Outpatient (RCR) | payer OTHER, MEDICARE, SELFPAY ==
[2020-09-22 11:37] LABS: Basophils % 0.1 %; Hematocrit 35.5 % (42.0-52.0); Hemoglobin 11.3 g/dL (11.7-16.6); Lymphocytes # 0.6 10^3/uL (0.8-4.8); Mean Corpuscular HGB Conc 31.8 g/dL (30.0-36.0); Mean Corpuscular Hemoglobin 30.7 pg (28.0-34.0); Mean Corpuscular Volume 96.5 fL (80-94); Mean Platelet Volume 9.2 fL (7.4-10.4); Monocytes # 0.1 10^3/uL (0.2-0.9); Monocytes % 0.7 %; Neutrophils # 10.44 10^3/uL (1.8-7.7); Neutrophils % 92.2 %; Nucleated Red Blood Cells % 0 %; Platelet Count 233 10^3/cmm (130-400); Red Blood Count 3.68 10^6/uL (4.1-5.3); Red Cell Distribution Width 17.9 % (12.1-15.1); White Blood Count 11.3 10^3/uL (4.0-10.0)
[2020-09-22 11:51] LABS: Alanine Aminotransferase 52 U/L (0-41); Albumin Level 3.7 g/dL (3.5-5.2); Alkaline Phosphatase 155 IU/L (40-130); Aspartate Amino Transferase 31 U/L (0-40); Blood Urea Nitrogen 24 mg/dL (8-23); Carbon Dioxide 24 mmol/L (22-29); Chloride 97 mmol/L (98-107); Globulin 3.1 g/dL (1.3-4.6); Glucose 214 mg/dL (65-115); Osmolality Calculated 292 mOsm/kg (285-295); Sodium 136 mmol/L (136-145); Total Bilirubin 0.3 mg/dL (0.15-1.2); Total Protein 6.8 g/dL (6.6-8.7)
[2020-09-22] MEDS: palonosetron 0.25 mg/5 mL SDV IV (12:36)
[2020-09-22] MEDS: famotidine 20 mg/2 mL INJ IVP (12:37)
[2020-09-22] MEDS: diphenhydrAMINE 50 mg/mL SDV 1mL 25 MG IV (12:38)
[2020-09-22] MEDS: fosaprepitant 150 MG in sodium chloride 0.9% 150 ML 300 MG IV (12:40)
[2020-09-29 10:19] LABS: Basophils % 0.3 %; Hematocrit 32.1 % (42.0-52.0); Hemoglobin 10.6 g/dL (11.7-16.6); Lymphocytes # 0.4 10^3/uL (0.8-4.8); Lymphocytes % 4.8 %; Mean Corpuscular Hemoglobin 31.5 pg (28.0-34.0); Mean Corpuscular Volume 95.5 fL (80-94); Mean Platelet Volume 9.9 fL (7.4-10.4); Monocytes # 0.1 10^3/uL (0.2-0.9); Monocytes % 0.8 %; Neutrophils # 6.81 10^3/uL (1.8-7.7); Neutrophils % 92.6 %; Nucleated Red Blood Cells % 0 %; Platelet Count 185 10^3/cmm (130-400); Red Blood Count 3.36 10^6/uL (4.1-5.3); Red Cell Distribution Width 16.7 % (12.1-15.1); White Blood Count 7.4 10^3/uL (4.0-10.0)
[2020-09-29 10:42] LABS: Alanine Aminotransferase 42 U/L (0-41); Albumin Level 3.6 g/dL (3.5-5.2); Alkaline Phosphatase 156 IU/L (40-130); Aspartate Amino Transferase 29 U/L (0-40); Blood Urea Nitrogen 16 mg/dL (8-23); Calcium 9.2 mg/dL (8.5-10.5); Carbon Dioxide 26 mmol/L (22-29); Chloride 92 mmol/L (98-107); Globulin 2.8 g/dL (1.3-4.6); Glucose 230 mg/dL (65-115); Osmolality Calculated 286 mOsm/kg (285-295); Sodium 134 mmol/L (136-145); Total Bilirubin 0.4 mg/dL (0.15-1.2); Total Protein 6.4 g/dL (6.6-8.7)
[2020-09-29] MEDS: famotidine 20 mg/2 mL INJ IVP (12:50)
[2020-09-29] MEDS: sodium chloride 0.9% 250 ML 75 ML IV (12:50)
[2020-09-29] MEDS: ondansetron 2 mg/ML SDV 2 mL 8 MG IV (12:52)
[2020-09-29] MEDS: diphenhydrAMINE 50 mg/mL SDV 1mL 25 MG IVP (12:55)
[2020-09-29] MEDS: fosaprepitant 150 MG in sodium chloride 0.9% 150 ML 300 MG IV (13:18)
[2020-10-03] MEDS: sodium chloride 0.9% 1,000 ML 999 ML IV (10:10)
[2020-10-03] MEDS: ondansetron 2 mg/ML SDV 2 mL 8 MG IVP (13:33)
--- NOTE | 2020-10-19 13:39 | ONC FU_ITS ---
[facility] Patient Note Patient: Rubén Vicente Unit #: [id number]: 1945 Dictated By: Bruno SantamariaDate of Visit: Sep 29, 2020 Onc MED Follow-Up/Prog Note Chief Complaint: Metastatic lung cancer with brain mets History of Present Illness: Mr. 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 In December 2019 he developed progressive headaches and eventually underwent MRI scan of the brain January 17, 2020. This did show 3 enhancing lesions with surrounding edema involving the left side of the brainstem at the level of the katy. There was edema involving portion of the anterior left side cerebellum. The fourth ventricle demonstrated mild mass-effect from the edema. Supratentorially there was an enhancing lesion in the right thalamus with a large amount of surrounding edema causing midline shift from left to right???approximately 4 to 5 mm. There was an enhancing lesion with surrounding edema involving the cortex and deep white matter of the right occipital lobe. Mr. Vicente underwent CT scan of the chest which showed a large mass measuring 6.5 x 5.1 x 5.3 cm in the left upper lobe and also another nodule in the same lobe. He underwent bronchoscopy with transbronchial biopsy on February 15, 2020. The pathology showed poorly differentiated adenocarcinoma, favor lung region as immunohistochemistry stains were positive for TTF-1???1, Napsin, CK cocktail, CK7 and negative for PSA, p63, synaptophysin, CK20, CK 5/6 and chromogranin A as well as CDX2. Mr. Vicente reported that he had not had any hemoptysis or hematemesis. He denied any bone pain or any jaundice. He had no trouble swallowing. But he had lost about 10 pounds in the months prior to the work-up. Mr. Vicente has a history of prostate cancer diagnosed in April 2015. The Kyung score was [address] scan of the abdomen pelvis and bone scan did not show any evidence of metastatic disease at that time. As he was high risk he was treated with Eligard and radiation therapy. He did continue taking Eligard every 3 months and the last dose was given in December 2019. Mr. Vicente has a smoking history of 50 years but states he quit in December 2019. He does have a history of alcohol use but mostly beer only. Mr. Vicente underwent radiation for his brain metastasis. He had been having worsening of his handwriting and questionable memory loss. He did start on dexamethasone on January 17, 2020 as the MRI was positive for brain mets. He then was referred to radiation oncology. He is received a total of 30 cGy from March 03, 2020 until March 18, 2020. He tolerated it well and was able to taper down the dexamethasone. He did have a PET CT scan on March 01, 2020 which showed a 4 x 4.6 x 3.8 left upper lobe mass with central necrosis with an SUV of 12.8 and a second solid nodule in the left upper lobe measuring 1.2 x 0.9 cm. This was FDG negative. Local metastatic disease was present in the superior left hilar node measuring 1.3 cm with an SUV of 5.2. There was questionable uptake in the subaortic node that was felt to be likely reactive . Molecular profiling reported on May 13, 2020 confirmed PD-L1 (22 C3) positive, TPS 15% which equates benefit from pembrolizumab. He did have PD-L1 (28???8) positive at 1+ which equated to 25% benefit from nivolumab/ipilimumab. He was negative for ALK, EGFR, KRAS, BRAF, ROS1 and MET. offered treatment with chemo immunotherapy with agents being pembrolizumab/carboplatin/Alimta every 3 weeks with a plan to repeat the PET CT imaging after the third cycle to assess response.Started on June 26, 2020 Went [place] [facility] on July 08, 2020 with constipation and episode of blood in his stool and epistaxis, as per patient mag citrate relieved his constipation at home but then caused self-limiting small blood in his stools in the ER his white blood count was 5.2 hemoglobin 10 hematocrit 30.1 platelets 103,000, CT scan of abdomen pelvis was done on July 08, 2020 which showed numerous hypoattenuating masses scattered throughout the liver largest in the left lobe measuring 2.7 x 3.1 cm and right adrenal mass with mild enhancement measuring 3.0 x 4.4 cm peripherally enhancing mass in the left gluteus ora measurement 2.4 cm, chest x-ray showed 4.6 cm mass in the left upper lobe of the lung Follow-up CT PET scan done on August 16, 2020, confirm no change in the size of right adrenal malignant mass, mild improvement in the size of multifocal hepatic metastatic disease, stable left gluteal malignant implant. Cautious lesions in the abdomen pelvis are largely radiographically occult. Retrocaval node is larger in size when compared with the previous. Mr Vicente was admitted to hospital on August 26, 2020 with severe bone marrow suppression and diarrhea. He required 2 units of packed RBCs. The initial impression was could be due to immunotherapy related colitis but his diarrhea improved and no more episode of blood in his stool. His electrolytes were supplemented. He has recovered. His last dose of Keytruda carboplatin Alimta was on August 07, 2020. His PET/CT from 08/25/2020 reported no change in the size of the right adrenal malignant mass. There was mild improvement in the size of the multifocal hepatic metastatic disease between June 2020 CT and the August 2020 CT and PET/CT. Stable left gluteal malignant implant. Osseous lesions in the abdominal and pelvis are largely radiographic occult but are definitely present with FDG imaging; this indicates early marrow seeding of these lesions. Retroclival node is larger in size between June [address] August [address] and PET/CT. Dr. Jefferson had discussed these findings with Mr. Vicente and his family. He had significant side effects involving the Keytruda carboplatin Alimta as indicated above. The discussion was whether to consider something less toxic in form of chemotherapy or consider hospice. Mr. Vicente was interested in pursuing systemic chemotherapy first and if cannot tolerate it then consider hospice. At this point Dr. Jefferson is recommended carboplatin Taxol on a day 1 and 8 treatment plan of a 21 day cycle. Mr. Vicente began his first dose of carboplatin paclitaxel on September 22, 2020. He has tolerated it relatively well thus far. Mr. Vicente is here today for follow-up. He is due for cycle 1 day 8 carboplatin Taxol. He states overall he is doing better. He has had no nausea or vomiting. He continues to have some intermittent constipation and has not had a bowel movement in several days at this point. He states he has had some left lower quadrant pain with the constipation. He states he is eating fairly good. He has had no headaches or vision changes. He denies any fever or chills. His activity is still very marginal with his ECOG at 2. He denies any new pain. He states his breathing is about the same. He states he has no more short of breath. He denies any cough or hemoptysis. He denies any chest pain or palpitations. He denies any peripheral neuropathy symptoms. He is accompanied by his daughter today. Past Medical History: Hepatitis C Hypertension Cancer (Prostate) in 2016 Past Surgical History: Colonoscopy Transrectal Prostate Ultrasound & Prostate Biopsy in 2016 Allergies: No Known Allergies. Medications: Cholecalciferol 1 Tablet (of 100 mcg ) Oral daily Dexamethasone 1 Tablet (of 4 mg) Oral daily Folic Acid 1 Tablet (of 400 mcg) Oral daily Multivitamin 1 Tablet Oral daily Family History: Mr. Vicente's mother is alive: Melanoma Cancer. Mr. Vicente's father is : Cancer. Social History: Mr. Vicente is legally and he is retired. Mr. Vicente no longer smokes but had smoked 1.0 pack/day for 55 years. He drinks occasionally. He consumes 6 drinks/day 4 days/week. He has indicated exposure to the following products: cigarettes, beer, and marijuana. Occasional marijuana use. Review Of Symptoms: <See Above> Vital Signs: Performed on Sep 29, 2020 15:40 Height - 72.00 in Temperature - 98.4 F Pulse - 78 /min Respiration - 18 /min BP - 124/71 mm(hg) O2 Sat - 98 % Performed on Sep 29, 2020 11:38 Height - 72.00 in Temperature - 97.4 F (LOW) Pulse - 110 /min (HIGH) Respiration - 18 /min BP - 121/80 mm(hg) O2 Sat - 96 % Pain - 10 Fatigue - 8,1 - No physically strenuous activity, but ambulatory and able to carry out light or sedentary work (e.g. office work, light house work). (ECOG) Physical Examination: Constitutional Alert, oriented, no acute distress. Skin pink, warm and dry. Head Normocephalic; atraumatic. Eyes Conjunctivae and sclerae are clear and without icterus. Pupils are reactive and equal. Abdomen Non-tender, non-distended, no masses or ascites. Faint bowel sounds noted in all quads. No guarding, but slight rebound tenderness in mid lower quad. No pulsatile masses. Extremities No visible deformities, no cyanosis, clubbing or edema. Musculoskeletal No tenderness or swelling, normal range of motion without obvious weakness. Integumentary No rashes or lesions. Neurologic No sensory or motor deficits, normal cerebellar function. Psychiatric Alert and oriented times three. Coherent speech. Verbalizes understanding of our discussions today. Laboratory:Test performed on Sep 29, 2020 10:00 Sodium 134 mmol/L Potassium 4.0 mmol/L Chloride 92 mmol/L CO2 26 mmol/L Anion Gap 20.0 BUN 16 mg/dL Creatinine 0.6 mg/dL Cr Clearance (Est) 107.4200 mL/min Glucose 230 mg/dL Osmolality - Calculated 286 mOsm/kg Calcium 9.2 mg/dL Protein, Total 6.4 g/dL Albumin 3.6 g/dL Globulin 2.8 g/dL Bilirubin, Total 0.4 mg/dL ALT (SGPT) 42 U/L AST (SGOT) 29 U/L Alkaline Phosphatase 156 IU/L WBC 7.4 10 3/uL RBC 3.36 10 6/uL HGB 10.6 g/dL HCT 32.1 % MCV 95.5 fL MCH 31.5 pg MCHC 33.0 g/dL RDW 16.7 % Platelet Count 185 10 3/cmm MPV 9.9 fL Neutrophils 6.81 10 3/uL Lymphocytes 0.4 10 3/uL Monocytes 0.1 10 3/uL Eosinophils 0.0 10 3/uL Basophils 0.0 10 3/uL Neutrophil % 92.6 % Lymphocyte % 4.8 % Monocyte % 0.8 % Eosinophil % 0.0 % Basophils % 0.3 % NRBC % 0 % Impression: 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 per transbronchial biopsy done on February 15, 2020 immunohistochemistry positive for TTF-1, Napsin, CK cocktail, CK7 and negative for PSA, p63, synaptophysin, CK20, CK 5/6 and CDX2, chromogranin A MRI scan of the brain done on January 17, 2020 shows brain mets,Status post radiation therapy completed on March 18, 2020 clinical stage IV, Molecular profiling reported on May 13, 2020 is positive for PD-L1 (22c3), TPS 15% indicate benefit from pembrolizumab and PD-L1 (28???8) positive , 1+, 25% indicate benefit from nivolumab/ipilimumab combination And negative for ALK, BRAF, EGFR, ROS1, K-john,, MSI stable, tumor mutational burden 7% which is low. NTRK indeterminate CT PET scan done on March 01, 2020 showed hypermetabolic left upper lobe mass 4 x 4.6 x 3.8 cm and a second solid nodule in the left upper lobe measuring 1.2 x 0.9 cm is FDG negative. Local metastatic disease is present in the superior left hilar node measuring 1.3 cm with SUV of 5.2. History of prostate cancer, high risk diagnosed in April 2015, with negative CT scan of abdomen pelvis and bone scan but high Kyung score, being high risk patient status post ADT/radiation therapy followed by [facility] every 3-month till December 2018. discussed with Mr Vicente his disease status and recently obtained molecular profiling report. The molecular confirmed negative for ALK, EGFR, ROS1, K-john, BRAF, MET but positive for PD-L1 with that information, recommended chemo immunotherapy with pembrolizumab/carboplatin/Alimta every 3 weeks and repeat PET/CT scan after third cycle to assess the response. Mr. Vicente is here today for his first cycle of chemo/immunotherapy. Mr. Vicente had placement of a PowerPort in the right subclavian vein by Dr. Tavares on June 16, 2020.. Follow-up CT PET scan done after 3 cycles of chemotherapy with carboplatin/alimta /Keytruda on August 16, 2020 showed no change in the size of right adrenal malignant mass. Mild improvement in the size of multifocal hepatic metastatic disease, stable left gluteal malignant implant. Osseous lesions in abdomen pelvis are largely radiographically occult. Retrocaval node is larger in size. Plan/Problems Addressed at this Visit: A. Proceed with cycle 1 day 8 carboplatin paclitaxel. B. Steroid compliance confirmed. C. Labs from today were reviewed in detail and discussed with Mr. Vicente and a copy was given to him. WBC 7.4, hemoglobin 10.6, platelets 185,000, ANC is 6810. His ANC on day 1 was 10,440. His creatinine today 0.6 random glucose 230???steroid-induced. LFTs are improved with an ALT of 42. His AST is 29 alk phos is 156 total bilirubin 0.4. 2. Constipation A. We will have a abdominal x-ray today???KUB to make sure he is not showing signs of obstruction. B. If his x-ray does not show signs of obstruction we will pursue aggressive laxatives with MiraLAX, mag citrate and stool softeners. C. Obviously if his x-ray shows obstruction that will be treated accordingly as well. D. If his bowels are cleared with the laxatives will have him stay on stool softeners 1-2 at least once daily may increase to twice daily as needed. He will also use MiraLAX every 2 to 3 days if he has not had a good bowel movement. 3. Follow-up plan A. He will have weekly interim labs. These will include CBC CMP. This can be done via home health if he is on service or may be drawn at their [place] [facility] to save him a drive here. B. We will plan for follow-up in [address] Jefferson for cycle 2-day 1 carboplatin Taxol. C. He is reminded to take his premed steroids with cycle 1 day 1. D. Mr. Caba and his daughter were encouraged to contact us in the interim should questions or problems arise.1. Metastatic poorly differentiated adenocarcinoma left upper lobe lung. Addendum: His KUB did not show any acute abdominal findings. We will treat his constipation aggressively as indicated above. Ideally would be good if he could have interim hydration but this is an issue given transportation is a problem for him and he is through [place] and may not be on home health services. Signed By: Bruno Santamaria-, [facility] Galindo Jeffreson MD <<Signature on File>>
== END 2020-10-15 23:59 | disposition home or self-care (01) ==
LOC: ONCMED 09:42
PROVIDERS: Internal Medicine Hematology & Oncology; PCP Family Medicine; Visit Provider Nurse Practitioner
DX: Z51.11 Encounter for antineoplastic chemotherapy (principal); C34.12 Malignant neoplasm of upper lobe, left bronchus or lung; C79.31 Secondary malignant neoplasm of brain; C78.7 Secondary malignant neoplasm of liver and intrahepatic bile duct; Z79.52 Long term (current) use of systemic steroids; Z79.899 Other long term (current) drug therapy
CPT/HCPCS: 80053; 85025; 96361; 96365; 96367; 96375; 96413; 96417; 99214; J1100; J1200; J1453; J2405; J2469; J3490; J7030; J7040; J7050; J9045; J9267

== ENCOUNTER 2020-10-03 12:26 | Inpatient (IN) | payer OTHER, MEDICARE, SELFPAY ==
[2020-10-03] VITALS (31 sets, daily range): BP systolic 78–123; BP diastolic 52–84; PULSE 81–146; RESP 12–24; TEMP 36.4–36.8; O2SAT 95–100; BMI 20.9
--- NOTE | 2020-10-03 12:58 | XR_ITS ---
WS: [id number] Exam: XR chest 1V portable [id number] Date/Time of Exam: 10/03/2020 12:58 PM Reason For Exam: SOB, fever, sepsis Comparison 07/08/2020. Left upper lobe pulmonary mass is slightly larger than noted previously. This apparently represents t he patient's known malignancy. The lungs are otherwise clear and fully expanded. Heart size is normal . A right subclavian port ends at the cavoatrial junction. Bony structures appear to be intact. XR/XR chest 1V portable [id number] IMPRESSION: 1. Enlarging left upper lobe pulmonary mass measuring about 4.8 x 6.9 cm. This apparently represents the patient's known malignancy. 2. The lungs are otherwise clear. No acute infiltrate noted. 3. Right subclavian port appearing to be in satisfactory position without ace e.
--- NOTE | 2020-10-03 13:02 | ED_ITS ---
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 [facility] and noted that he had a fever there. They also felt he might have an infection so he was sent to the emergency department to be evaluated. While in the cancer center he received 1 L of normal saline. Complaint: generalized weakness Onset (ago): day(s) Duration: constant Location: generalized Associated symptoms: Reports decreased appetite and fever(s); Denies chest pain, chills, confusion, melena, diaphoresis, dysuria, easy bruising, headache(s), myalgias, nausea, rash, short of breath, syncope or vomiting Review of Systems General: Reports: 10 or more systems reviewed and unremarkable except in HPI and below Const: Reports: fever(s); Denies: chills or diaphoresis Card: Denies: chest pain or syncope GI: Denies: nausea, vomiting or melena : Denies: dysuria Neuro: Denies: headache(s) or confusion Noe/Lymph: Denies: easy bruising PFSH ED PFSH: Medical History Chronic viral hepatitis C With reported prior treatment. COPD (chronic obstructive pulmonary disease) DDD (degenerative disc disease) Ganglion cyst GI bleeding HTN (hypertension) Malignant neoplasm of prostate Malignant neoplasm of upper lobe, left bronchus or lung Metastatic lung cancer (metastasis from lung to other site) Scalp mass Surgical History History of surgical removal of ganglion cyst Hx of tonsillectomy Port-A-Cath in place (06/16/20) Family History Father CAD (coronary artery disease) Cancer Social History Smoking and tobacco status: former smoker Quit status (tobacco): has quit using tobacco Year quit tobacco: 2020 - Hx of 1PPD x 50 Y Second hand smoke exposure: Yes Alcohol intake: former Lives independently: Yes Household members: spouse Marital status: Current occupational status: retired History of recent travel: No Current gender identity: Male Physical Exam Const: COMMON NORMALS: no acute distress, average body habitus, patient oriented x3, no limitations, healthy appearing, alert and well nourished HENMT: COMMON NORMALS: normocephalic, atraumatic and moist oral mucous membranes HEAD & SCALP: normocephalic and atraumatic Neck/C-Spine: COMMON NORMALS: no meningeal signs and no JVD Resp: COMMON NORMALS: normal respiratory effort, No retractions, No use of accessory muscles and percussion normal AUSCULTATION: rales on the right PERCUSSION: percussion normal Cardio: COMMON NORMALS: no JVD, regular rate, regular rhythm, S1 normal heart sound present, S2 normal heart sound present, No gallops present (Cardio), No clicks present (Cardio), No murmurs present (Cardio), No rub (Cardio) and Peripheral pulses 2+ throughout RATE: regular rate RHYTHM: regular rhythm HEART SOUNDS: S1 normal heart sound present and S2 normal heart sound present PERIPHERAL PULSES: Peripheral pulses 2+ throughout GI: COMMON NORMALS: Normal to inspection, nondistended, normoactive bowel sounds present, Soft to palpation, non-tender, No hepatosplenomegaly present, no masses and no bruits PALPATION: Yes Soft to palpation and Yes No hepatosplenomegaly present Extremity: COMMON NORMALS: normal to inspection, full ROM, capillary refill normal, no calf tenderness and no pedal edema Neuro: COMMON NORMALS: patient oriented x3 SENSORIUM/ORIENTATION: Yes alert MENINGEAL SIGNS: Yes no meningeal signs Skin: COMMON NORMALS: no rashes or lesions noted, no wounds, turgor normal, no jaundice, no petechiae and no mottling GENERAL SKIN EXAM: no rashes or lesions noted and turgor normal Course Reevaluation(s): Reevaluation #1: Discussed his lab and imaging findings with the patient and his daughter. Explained that he appears to be septic and will benefit from hospital admission and IV antibiotics. They voiced understanding and they are in agreement with the plan. Time: 15:15 Consultations: Consultation #1: Discussed the patient with Dr. Stevens, hospitalist and he kindly accepted the patient to his service. Time: 15:19 Vital Signs: Vital signs: Vital Signs Temperature 97.6 F 10/03/20 19:25 Pulse Rate 90 10/04/20 00:45 Respiratory Rate 22 H 10/04/20 00:30 Blood Pressure 109/66 10/04/20 00:45 Pulse Oximetry 98 10/04/20 00:45 MDM - Weakness MDM Narrative: Medical decision making narrative: 75-year-old male who presents to the emergency department with generalized weakness, feeling unwell. Evaluation in the emergency department is consistent with sepsis. Patient is leukopenic. He is admitted to the hospital for further evaluation and management. Medical Records: Attestation: I reviewed the patient's medical records. Lab Data: Attestation: I reviewed the patient's lab results. Labs: Lab Results 10/03/20 10/03/20 10/03/20 Range/Units 13:15 13:15 13:15 WBC 1.8 L (4.0-10.0) 10^3/ uL RBC 3.45 L (4.1-5.3) 10^6/u L Hgb 10.8 L (11.7-16.6) g/dL Hct 33.6 L (42.0-52.0) % MCV 97.4 H (80-94) fL MCH 31.3 (28.0-34.0) pg MCHC 32.1 (30.0-36.0) g/dL RDW 17.2 H (12.1-15.1) % Plt Count 159 (130-400) 10^3/c mm MPV 10.0 (7.4-10.4) fL Neut % (Auto) 89.2 % Lymph % (Auto) 4.0 % Concho % (Auto) 5.1 % Eos % (Auto) 0.0 % Baso % (Auto) 0.6 % Neut # (Auto) 1.57 L (1.8-7.7) 10^3/u L Lymph # (Auto) 0.1 L (0.8-4.8) 10^3/u L Concho # (Auto) 0.1 L (0.2-0.9) 10^3/u L Eos # (Auto) 0.0 (0.0-0.8) 10^3/u L Baso # (Auto) 0.0 (0.0-0.1) 10^3/u L Nucleated RBC % (a uto) 1.1 % Nucleated RBCs # 0.0 /100WBC ESR (0-10) mm/hr Sodium 133 L (136-145) mmol/L Potassium 3.9 (3.5-5.1) mmol/L Chloride 95 L (98-107) mmol/L Carbon Dioxide 22 (22-29) mmol/L Anion Gap 19.9 H (5-19) BUN 18 (8-23) mg/dL Creatinine 0.7 (0.7-1.2) mg/dL GFR Calculation Not Reportable Glucose 153 H (65-115) mg/dL Calculated Osmolal ity 281 L (285-295) mOsm/k g Lactic Acid 2.8 H (0.5-2.2) mmol/L Calcium 8.4 L (8.5-10.5) mg/dL Total Bilirubin 1.4 H (0.15-1.2) mg/dL AST 23 (0-40) U/L ALT 37 (0-41) U/L Alkaline Phosphata se 133 H (40-130) IU/L Troponin T Baselin e (0-15) ng/L C-Reactive Protein 118.1 H (0.0-4.9) mg/L NT-Pro-B Natriuret Pep (0-125) pg/mL Total Protein 5.8 L (6.6-8.7) g/dL Albumin 3.2 L (3.5-5.2) g/dL Globulin 2.6 (1.3-4.6) g/dL Procalcitonin 0.39 (0-0.5) ng/mL 10/03/20 10/03/20 10/03/20 Range/Units 13:15 13:15 13:15 WBC (4.0-10.0) 10^3/ uL RBC (4.1-5.3) 10^6/u L Hgb (11.7-16.6) g/dL Hct (42.0-52.0) % MCV (80-94) fL MCH (28.0-34.0) pg MCHC (30.0-36.0) g/dL RDW (12.1-15.1) % Plt Count (130-400) 10^3/c mm MPV (7.4-10.4) fL Neut % (Auto) % Lymph % (Auto) % Concho % (Auto) % Eos % (Auto) % Baso % (Auto) % Neut # (Auto) (1.8-7.7) 10^3/u L Lymph # (Auto) (0.8-4.8) 10^3/u L Concho # (Auto) (0.2-0.9) 10^3/u L Eos # (Auto) (0.0-0.8) 10^3/u L Baso # (Auto) (0.0-0.1) 10^3/u L Nucleated RBC % (a uto) % Nucleated RBCs # /100WBC ESR 53 H (0-10) mm/hr Sodium (136-145) mmol/L Potassium (3.5-5.1) mmol/L Chloride (98-107) mmol/L Carbon Dioxide (22-29) mmol/L Anion Gap (5-19) BUN (8-23) mg/dL Creatinine (0.7-1.2) mg/dL GFR Calculation Glucose (65-115) mg/dL Calculated Osmolal ity (285-295) mOsm/k g Lactic Acid (0.5-2.2) mmol/L Calcium (8.5-10.5) mg/dL Total Bilirubin (0.15-1.2) mg/dL AST (0-40) U/L ALT (0-41) U/L Alkaline Phosphata se (40-130) IU/L Troponin T Baselin e 61 H (0-15) ng/L C-Reactive Protein (0.0-4.9) mg/L NT-Pro-B Natriuret Pep 1144 H (0-125) pg/mL Total Protein (6.6-8.7) g/dL Albumin (3.5-5.2) g/dL Globulin (1.3-4.6) g/dL Procalcitonin (0-0.5) ng/mL Imaging Data^: CXR: Attestation: I personally reviewed and interpreted this imaging study as follows: Radiologist's impression: [address] [place], [place] [address]UOaz ReportSigned Patient: Rubén Vicenteit #: [id number]: [id number]#:[id number]/Sex: 75 / MADM Date: 10/03/20Loc: ERRoom/Bed:Attending Dr: Ordering Provider/Ordering MD: Jian Powell MD, [facility] [place] Date of Service: 10/03/20 Procedure(s): XR chest 1V portable [id number] Accession Number(s): [id number] Report Number: [id number] WS: [id number] Exam: XR chest 1V portable [id number] Date/Time of Exam: 10/03/2020 12:58 PM Reason For Exam: SOB, fever, sepsis Comparison 07/08/2020. Left upper lobe pulmonary mass is slightly larger than noted previously. This apparently represents the patient's known malignancy. The lungs are otherwise clear and fully expanded. Heart size is normal. A right subclavian port ends at the cavoatrial junction. Bony structures appear to be intact. XR/XR chest 1V portable [id number] IMPRESSION: 1. Enlarging left upper lobe pulmonary mass measuring about 4.8 x 6.9 cm. This apparently represents the patient's known malignancy. 2. The lungs are otherwise clear. No acute infiltrate noted. 3. Right subclavian port appearing to be in satisfactory position without change. Dictated By:Christopher Box By:Christopher Box Da te/Time:10/03/20 1330DD/ 1325 Discharge Plan Discharge Patient Disposition: Admitted As Inpatient Admit Provider: Marisol Stevens Clinical Impression: Sepsis, Leukopenia, Hypoxia Condition: Stable Coding Level of Care Code ED Community Engagement Specialist for Chg Fwd Exam Comprehensive
[2020-10-03 13:31] LABS: Basophils % 0.6 %; Hematocrit 33.6 % (42.0-52.0); Hemoglobin 10.8 g/dL (11.7-16.6); Lymphocytes # 0.1 10^3/uL (0.8-4.8); Mean Corpuscular HGB Conc 32.1 g/dL (30.0-36.0); Mean Corpuscular Hemoglobin 31.3 pg (28.0-34.0); Mean Corpuscular Volume 97.4 fL (80-94); Monocytes # 0.1 10^3/uL (0.2-0.9); Monocytes % 5.1 %; Neutrophils # 1.57 10^3/uL (1.8-7.7); Neutrophils % 89.2 %; Nucleated Red Blood Cells % 1.1 %; Platelet Count 159 10^3/cmm (130-400); Red Blood Count 3.45 10^6/uL (4.1-5.3); Red Cell Distribution Width 17.2 % (12.1-15.1); White Blood Count 1.8 10^3/uL (4.0-10.0)
[2020-10-03] MEDS: sodium chloride 0.9% 1,000 ML 999 ML IV (14:08)
--- NOTE | 2020-10-03 14:11 | PC.NURSE ---
pt port was accessed upon arrival
[2020-10-03 14:16] LABS: Alanine Aminotransferase 37 U/L (0-41); Albumin Level 3.2 g/dL (3.5-5.2); Alkaline Phosphatase 133 IU/L (40-130); Anion Gap 19.9 (5-19); Aspartate Amino Transferase 23 U/L (0-40); Blood Urea Nitrogen 18 mg/dL (8-23); C Reactive Protein 118.1 mg/L (0.0-4.9); Calcium 8.4 mg/dL (8.5-10.5); Carbon Dioxide 22 mmol/L (22-29); Chloride 95 mmol/L (98-107); Globulin 2.6 g/dL (1.3-4.6); Glucose 153 mg/dL (65-115); Osmolality Calculated 281 mOsm/kg (285-295); Potassium 3.9 mmol/L (3.5-5.1); Sodium 133 mmol/L (136-145); Total Bilirubin 1.4 mg/dL (0.15-1.2); Total Protein 5.8 g/dL (6.6-8.7)
[2020-10-03 14:23] LABS: Procalcitonin 0.39 ng/mL (0-0.5); Slide Review Slide Review Perform
--- NOTE | 2020-10-03 14:43 | PC.NURSE ---
Pt brief changed, cream applied to buttocks, and pt re-positioned. Pt states he is unable to void at this time. Pt titrated from 6LNC to 2LNC and maintaining saturations of 96% or higher.
[2020-10-03 15:15] LABS: Lactic Sepsis W/Reflex 2.8 mmol/L (0.5-2.2)
[2020-10-03 15:17] LABS: Reflex Lactate Order REFLEX LACTIC ORDERD
[2020-10-03] MEDS: piperacillin-tazobactam 3.375 GM in sodium chloride 0.9% (plus) 50 ML IV ×2 (15:18→22:23)
--- NOTE | 2020-10-03 16:01 | PC.NURSE ---
Attempted to call report, was instructed by machine records units supervisor that there is not a nurse available to take report and to call back.
--- NOTE | 2020-10-03 16:14 | PC.NURSE ---
Again attempted to call report to ICU, was told there is an emergency and it will be quite a while before pt can be transferred. Physician notified.
[2020-10-03 17:51] LABS: Lactic Acid level (Lactate) 1.5 mmol/L (0.5-2.2)
[2020-10-03 17:56] LABS: Add Urine Microscopic? YES; Bilirubin Urine 1+ (Negative); Blood Urine Neg (Negative); Glucose Urine UA Norm (Normal); Ketones Urine Negative (Negative); Leukocyte Esterase Urine Negative (Negative); Nitrate Urine Negative (Negative); Protein Urine Trace (Negative); Specific Gravity, Urine 1.015 (1.005-1.030); Urine Appearance Clear (CLEAR); Urine Color Yellow (Yellow); Urobilinogen Urine 1 mg/dL (Negative); pH Urine 5 (5-7)
--- NOTE | 2020-10-03 18:03 | CTR_ITS ---
PROCEDURE INFORMATION: Exam: CTA Chest With Contrast Exam date and time: 10/03/2020 6:03 PM Age: 75 years old Clinical indication: Cough and fever and shortness of breath; Prior surgery; Surgery type: Port; Patient HX: Cancer-lung, prostate, mets; Additional info: Lunga CA, shortnes of breath TECHNIQUE: Imaging protocol: Computed tomographic angiography of the chest with contrast. 3D rendering (Not supervised by radiologist): MIP and/or 3D reconstructed images were created by the technologist. Radiation optimization: All CT scans at this facility use at least one of these dose optimization techniques: automated exposure control; mA and/or kV adjustment per patient size (includes targeted exams where dose is matched to clinical indication); or iterative reconstruction. Contrast material: OMNI 350; Contrast volume: 95 ml; Contrast route: INTRAVENOUS (IV); COMPARISON: CT chest wo con [id number] 01/17/2020 12:53 PM RADIATION DOSE METRICS: Total DLP (mGy-cm): 1410.74 FINDINGS: Tubes, catheters and devices: There is a right-sided Ncktin-R-Kvzh. Pulmonary arteries: There is no pulmonary embolus. Aorta: Unremarkable. No aortic aneurysm. No aortic dissection. Lungs: There is a spiculated mass in the medial left upper lobe this increase in size compared to the prior exam now measuring 5.5 x 4.9 x 6.9 cm compared to the prior study where it measured 4.2 x 4.0 x 5.1 cm. Two lybc-jj-cplh satellite nodules adjacent to the mass in the left upper lobe have also increased in size with a combined measurement of 1.6 x 1.0 cm today compared to 1.0 x 0.8 cm previously. There are moderate to severe emphysematous changes. Nonspecific bibasilar ground-glass and airspace opacity right greater than left is present, consistent with atelectasis, edema, or pneumonia. There is a small area of peribronchial thickening and adjacent pneumonitis in the right upper lobe. Pleural spaces: Unremarkable. No pneumothorax. No pleural effusion. Heart: Unremarkable. No cardiomegaly. No pericardial effusion. Lymph nodes: Unremarkable. No enlarged lymph nodes. Bones/joints: There is osteopenia with moderate to severe degenerative changes in the spine. Bony metastatic disease is identified with multiple lytic lesions in the vertebra and ribs with a large lytic lesion involving the posterior aspect of the T8 vertebral body, right pedicle and lamina and bilateral transverse processes with moderate to severe narrowing of the central canal and high-grade narrowing of the right foramina. There is also pathologic fracture deformity of the anterior and middle columns of T8 with retropulsed bone/mass measuring up to 4 mm. Patchy destruction of the spinous process of T8 is also noted. There is subacute fracture deformity of T12 with anterior wedging deformity and sclerosis. Mixed lytic and sclerotic lesions are also noted in multiple vertebral bodies suspected to be treated metastases. Soft tissues: Unremarkable. IMPRESSION: 1. Extensive pathologic destruction of T8 with pathologic 2 column fracture and 3 column lytic destruction. This is an unstable fracture. There is 4 mm retropulsed bone resulting in moderate to severe stenosis of the spinal canal. This bony destruction and fracture is new compared to the prior chest CT. 2. There is no pulmonary embolus. 3. Nonspecific bibasilar ground-glass and airspace opacity right greater than left is present, consistent with atelectasis, edema, or pneumonia. 4. Enlarging mass left upper lobe and enlarging adjacent satellite nodules. Fleischner Society follow up recommendations for incidental nodules are not indicated. Follow up per the patient's medical condition. PROCEDURE INFORMATION: Exam: CT Abdomen And Pelvis With Contrast Exam date and time: 10/03/2020 6:03 PM Age: 75 years old Clinical indication: Cough and fever and shortness of breath; Prior surgery; Surgery type: Port; Patient HX: Cancer-lung, prostate, mets; Additional info: Lunga CA, shortnes of breath TECHNIQUE: Imaging protocol: Computed tomography of the abdomen and pelvis with contrast. Radiation optimization: All CT scans at this facility use at least one of these dose optimization techniques: automated exposure control; mA and/or kV adjustment per patient size (includes targeted exams where dose is matched to clinical indication); or iterative reconstruction. Contrast material: OMNI 350; Contrast volume: 95 ml; Contrast route: INTRAVENOUS (IV); COMPARISON: CT chest [facility] [id number] 01/17/2020 12:53 PM RADIATION DOSE METRICS: Total DLP (mGy-cm): 1410.74 FINDINGS: Liver: There is a larger mass in the right lobe of the liver image 22 no measuring 3.3 x 3.2 cm where previously it was 1.8 x 1.9 cm. There is a larger mass in the left lobe of the liver today measuring 3.2 x 3.2 cm compared to 2.4 x 2.2 cm previously. Additional masses in the liver are increasing in size. Gallbladder and bile ducts: Normal. No calcified stones. No ductal dilation. Pancreas: Normal. No ductal dilation. Spleen: Normal. No splenomegaly. Adrenal glands: The left adrenal gland is normal. There is an enlarging heterogeneous mass right adrenal gland now measuring 6.5 x 4.2 cm compared to 4.0 x 4.6 cm previously. Kidneys and ureters: There is no evidence of hydronephrosis. There is no evidence of renal calcifications. There are multiple renal hypodensities that cannot be further characterized on the current examination. There is an unchanged simple cyst midpole left kidney measuring up to 4.0 cm in greatest dimension. Stomach and bowel: There is no evidence of intestinal perforation or obstruction. The wall of the colon especially the distal distal colon is thickened with haziness of the adjacent fat compatible with mild diffuse colitis. There is a small amount of fluid in the pelvis adjacent to the thickened colon. Appendix: The appendix is not definitively identified. However, there is no CT evidence of a right lower quadrant inflammatory process. Intraperitoneal space: No abscess or free air. Vasculature: The aorta demonstrates moderate atherosclerotic calcification. Lymph nodes: Unremarkable.No enlarged lymph nodes. Urinary bladder: There is nonspecific bladder wall thickening. This may be related to incomplete distention. Reproductive: Unremarkable as visualized. Bones/joints: There is unchanged anterior wedging of T12 and L3. There is a larger lytic lesion destroying the superior endplate of L2. The expansile mass is beginning to destroy the code posterior cortex of the vertebral body and mildly narrowing the central canal. Large Schmorl's node or lytic changes superior endplate of L3 are unchanged. Soft tissues: There is a fat-containing umbilical hernia. There are small bilateral fat filled inguinal hernias. Other findings: No subluxation. CT/CT angio chest w abd pel w con IMPRESSION: 1. The wall of the colon especially the distal distal colon is thickened with haziness of the adjacent fat compatible with mild diffuse colitis. Small amount of fluid in the pelvis. No abscess or free air. 2. Progressive metastatic disease with enlarging liver masses and enlarging right adrenal mass. 3. New lytic destruction of L2. The expansile lesion is expanding the posterior cortex of the vertebral body and mildly narrowing the central canal. Pathologic fracture and more significant stenosis is imminent. Radiation Dose CTDIVOL = (mGy): DLP = 1410.74~1410.74 (mGy-cm)
[2020-10-03 18:05] LABS: Add Urine Culture? No; RBC Urine 0-4 /hpf (0-2); Squamous Epithelial Cell Urine 0-4 /hpf (0-5)
--- NOTE | 2020-10-03 18:19 | ECG_ITS ---
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 Measurements Intervals [place] Rate: 97 P: 69 MS: 146 QRS: -71 QRSD: 74 T: 76 QT: 347 QTc: 442 Interpretive Statements SINUS RHYTHM PATTERN CONSISTENT WITH PULMONARY DISEASE LEFT ANTERIOR FASCICULAR BLOCK [QRS AXIS <= -45, QR IN I, RS IN II] No previous ECG available for comparison Electronically Signed On 10-03-2020 22:20:27 CDT by Carla Bass M.D. [id number]
--- NOTE | 2020-10-03 18:20 | PM.HP ---
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 Patient tells me that he did receive a small course of chemotherapy yesterday, he tells me it was Keytruda, he was following up with Dr. Jefferson today, when he complained of fevers, productive cough yellow sputum, shortness of breath with exertion, and his vitals at [facility] was 94/60, did find he was hypotensive. Patient tells me that for the last month he has had a progressive decline, he lives in [facility] area, lives with his daughter and his , he has been feeling more weak, more short of breath, he cannot take care of himself, he does not use oxygen at home. He reports intermittent fevers, no known exposure to COVID-19. He reports a progressive shortness of breath, productive cough yellow sputum, does also complain of abdominal pain, diffuse, reports alternating diarrhea and constipation, no recent antibiotic use. Denies any dysuria. No headache, blurry vision, no neck pain, no neck stiffness, no new rashes, no known shingles rash. At [facility] he received a liter bolus, Dr. Jefferson felt that he was a bit fluid overloaded, so he is told him to come to the emergency room. In the emergency room patient was received sepsis bolus, Zosyn, was put on 2 L nasal cannula. Blood pressure on presentation 99/69, pulse 120, temperature 98.2, on 6 L. Chest x-ray does not show focal pneumonia, no UA evidence of UTI, no significant leukocytosis, lactic acid is 2.6, hospitalist team was called for admission for sepsis, fever of unknown origin, and cancer patient/on chemotherapy. Review of Systems Const: Reports: fever(s), chills, fatigue and malaise Eyes: Denies: change in vision or blurry vision ENMT: Denies: nasal congestion Card: Denies: chest pain, palpitations, edema, lightheadedness or syncope Resp: Reports: dyspnea, productive cough and change in phlegm color; Denies: non-productive cough, wheezing or hemoptysis GI: Reports: abdominal pain, nausea, diarrhea and constipation; Denies: vomiting, hematemesis, hematochezia or melena : Denies: flank pain, difficulty urinating, dysuria, urinary frequency, urinary urgency or urinary hesitancy Musc: Denies: neck pain or back pain Skin/Breast: Denies: rash Neuro: Denies: headache(s), dizziness or vertigo Psych: Denies: anxiety or depression Endo: Denies: polyuria or polydipsia Medications/Allergies Home Medications Medication Instructions Recorded Confirmed Last Taken Type dexamethasone 4 mg tablet 4 mg PO DAILY@02/28/20 10/03/20 10/03/20 History folic acid 1 mg PO DAILY@06/13/20 10/03/20 10/03/20 History lorazepam [Ativan] 1 mg PO TID PRN 07/08/20 10/03/20 10/02/20 History prochlorperazine maleate 10 mg PO Q4H PRN 07/08/20 10/03/20 07/08/20 History oxycodone-acetaminophen 1 tab PO Q4H PRN 08/22/20 10/03/20 Unknown History Allergies Allergy/AdvReac Type Severity Reaction Status Date / Time No Known Allergies Allergy Verified 07/08/20 12:38 PFSH Acute PFSH: Medical History Chronic viral hepatitis C With reported prior treatment. COPD (chronic obstructive pulmonary disease) DDD (degenerative disc disease) Ganglion cyst GI bleeding HTN (hypertension) Malignant neoplasm of prostate Malignant neoplasm of upper lobe, left bronchus or lung Metastatic lung cancer (metastasis from lung to other site) Scalp mass Surgical History History of surgical removal of ganglion cyst Hx of tonsillectomy Port-A-Cath in place (06/16/20) Family History Father CAD (coronary artery disease) Cancer Social History Smoking and tobacco status: former smoker Quit status (tobacco): has quit using tobacco Year quit tobacco: 2020 - Hx of 1PPD x 50 Y Second hand smoke exposure: Yes Alcohol intake: former Lives independently: Yes Household members: spouse Marital status: Current occupational status: retired History of recent travel: No Current gender identity: Male Vitals/I&O/Wt Last Vital Signs Temp 98.2 F 10/03/20 12:40 Pulse 109 H 10/03/20 17:47 Resp 18 10/03/20 17:47 BP 102/69 10/03/20 17:47 Pulse Ox 95 10/03/20 17:47 10/03/20 10/03/20 10/03/20 06:59 14:59 22:59 Intake Total 1050 / 1050 Balance 1050 / 1050 Weight last 48 hrs Weight 70.307 kg Physical Exam Const: COMMON NORMALS: no acute distress and patient oriented x3 GENERAL APPEARANCE: cooperative and comfortable Eye: COMMON NORMALS: Equal, round and reactive pupils present and EOMs intact bilaterally GENERAL EYE: appearance normal, both eyes and all related structures PUPIL: Yes Equal, round and reactive pupils present Lymph: LYMPHATIC: no lymphadenopathy noted Chest: OTHER: Right PowerPort in place Resp: COMMON NORMALS: normal respiratory effort, No retractions and No use of accessory muscles OTHER: Wheezing on exam Cardio: COMMON NORMALS: regular rate, regular rhythm, S1 normal heart sound present, S2 normal heart sound present, No gallops present (Cardio), No clicks present (Cardio) and No murmurs present (Cardio) RATE: regular rate RHYTHM: regular rhythm HEART SOUNDS: S1 normal heart sound present and S2 normal heart sound present GI: COMMON NORMALS: Normal to inspection, nondistended, normoactive bowel sounds present and Soft to palpation PALPATION: Yes Soft to palpation Extremity: COMMON NORMALS: normal to inspection, full ROM and no pedal edema Neuro: COMMON NORMALS: patient oriented x3, CN's II-XII intact bilaterally, moves all extremities and no focal motor deficits Psych: COMMON NORMALS: mental status grossly normal, Normal thought process present and cooperative THOUGHT PROCESS: Normal thought process present Data : 10/03/20 13:15 10/03/20 13:15 Micro: Microbiology 10/03/20 13:28 Blood Culture - Preliminary Blood SPECIMEN COLLECTED 10/03/20 13:15 Blood Culture - Preliminary Blood SPECIMEN COLLECTED A&P Assessment and plan (1) Sepsis: -Sepsis criteria met on admission due to hypotension, blood pressure 90s over 60s, tachycardia heart rates in the 120s, on 6 L, lactic acid 2.6, CRP 111, leukopenic white blood cell count 1.8 -Has received sepsis bolus, has received Zosyn, alert oriented x3, following all commands -With fever of unknown origin -On chemotherapy, immunocompromised with metastatic lung cancer -Etiology unclear -Chest x-ray unremarkable for focal pneumonia or infiltrates -UA no evidence of UTI -No neck pain, no neck stiffness, no headache, blurry vision Plan: -Admit to intensive care unit -Isolation protocols, Covid isolation protocols, chemotherapy precautions, neutropenic precautions -CODE STATUS, patient does not want chest compressions, does not want shocking, however he is unsure if he wants intubation and mechanical ventilation, he says that he wants to think on it, he wants to talk to his daughter. I advised patient that for now as we do not have an answer for him, we will proceed with keeping him on intubation and mechanical ventilation until he makes a decision. -Oxygen therapy, consult respiratory therapy -Avoid fluid overload BMP pending, echo pending -Broad-spectrum antibiotic therapy, vancomycin, Zosyn -Levophed as needed to maintain MAP greater than 65 -Urine cultures, blood cultures, sputum cultures, urine bacterial antigen, respiratory viral cultures, COVID-19 testing -Protonix for GI prophylaxis -Heparin for GI prophylaxis - IV access port -PT OT, nutrition consult Status: Acute (2) Leukopenia: Status: Acute (3) Metastatic lung cancer (metastasis from lung to other site): Status: Acute (4) Protein-calorie malnutrition, severe: Status: Acute (5) Thrombocytopenia: Status: Acute (6) Anemia: Status: Acute (7) Emphysema lung: Status: Acute (8) Adenocarcinoma of left lung, stage 4: Status: Acute (9) Malignant neoplasm of upper lobe, left bronchus or lung: Status: Acute (10) Hypoxia: Status: Acute (11) Fever of unknown origin: Status: Acute (12) Physical deconditioning: Status: Acute Attestations Medical Necessity Statement*: Patient requires hospitalization, inpatient, greater than 2 midnights, for sepsis, fever of unknown origin, leukopenia, anemia, Coding Level of Care Code 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
[2020-10-03] MEDS: iohexol 350 mg/mL 100 mL Btl IV (19:04)
[2020-10-03 19:14] LABS: Troponin(5th) Baseline 61 ng/L (0-15)
[2020-10-03 19:21] LABS: NT Pro B Type Natriuretic Pept 1144 pg/mL (0-125)
--- NOTE | 2020-10-03 20:08 | PC.RESP ---
Pulmonary Rehab information sent to patient.
--- NOTE | 2020-10-03 20:19 | ECG_ITS ---
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 Measurements Intervals [place] Rate: 86 P: 68 [place]: 148 QRS: -61 QRSD: 82 T: 78 QT: 368 QTc: 440 Interpretive Statements SINUS RHYTHM PATTERN CONSISTENT WITH PULMONARY DISEASE LEFT ANTERIOR FASCICULAR BLOCK [QRS AXIS <= -45, QR IN I, RS IN II] Compared to ECG 10/03/2020 19:46:40 No significant changes Electronically Signed On 10-04-2020 15:04:37 CDT by Janine Aleman M.D. [email or web address]
[2020-10-03 20:30] LABS: Erythrocyte Sedimentation Rate 53 mm/hr (0-10)
[2020-10-03 20:42] LABS: NT Pro B Type Natriuretic Pept 1985 pg/mL (0-125); Thyroid Stimulating Hormone 0.89 uIU/mL (0.27-4.20)
[2020-10-03] MEDS: heparin 5,000 unit/mL INJ 1 mL 5000 UNIT SUBCUT (20:57)
[2020-10-03] MEDS: vancomycin 1,000 MG in sodium chloride 0.9% 250 ML 200 MG IV (20:57)
[2020-10-03 21:04] LABS: SARS Covid-2 Antigen Negative (Negative)
[2020-10-03 21:06] LABS: HIV 1 & 2 Antibody Non-Reactive (Non-Reactiv); HIV 1 & 2 Antigen Non-Reactive (Non-Reactiv)
[2020-10-03 23:34] LABS: Hepatitis A Antibody IgM Non-Reactive (Nonreactive); Hepatitis B Core IgM Non-Reactive (Nonreactive); Hepatitis B Surface Antigen Non-Reactive (Nonreactive)
[2020-10-03 23:57] LABS: Hepatitis C Virus Antibody Reactive (Nonreactive)
[2020-10-04] VITALS (38 sets, daily range): BP systolic 89–126; BP diastolic 56–69; PULSE 63–99; RESP 16–22; TEMP 36.6–36.9; O2SAT 95–100; BMI 21.1
[2020-10-04 00:51] LABS: Troponin 5 6HR 46.11 ng/L (0-15)
[2020-10-04] MEDS: piperacillin-tazobactam 3.375 GM in sodium chloride 0.9% (plus) 50 ML IV ×3 (06:04→23:10)
[2020-10-04] MEDS: heparin 5,000 unit/mL INJ 1 mL 5000 UNIT SUBCUT (06:04)
[2020-10-04] MEDS: azithromycin 500 MG in sodium chloride 0.9% 250 ML 250 MG IV (09:49)
[2020-10-04] MEDS: pantoprazole 40 mg SDV IVP (09:50)
[2020-10-04] MEDS: folic acid 1 mg Tablet PO (09:52)
[2020-10-04] MEDS: dexamethasone 4 mg Tablet PO (09:52)
--- NOTE | 2020-10-04 09:55 | P.CONIM_ITS ---
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 Patient tells me that he did receive a small course of chemotherapy yesterday, he tells me it was Keytruda, he was following up with Dr. Jefferson today, when he complained of fevers, productive cough yellow sputum, shortness of breath with exertion, and his vitals at [facility] was 94/60, did find he was hypotensive. Patient tells me that for the last month he has had a progressive decline, he lives in [facility] area, lives with his daughter and his , he has been feeling more weak, more short of breath, he cannot take care of himself, he does not use oxygen at home. He reports intermittent fevers, no known exposure to COVID-19. He reports a progressive shortness of breath, productive cough yellow sputum, does also complain of abdominal pain, diffuse, reports alternating diarrhea and constipation, no recent antibiotic use. Denies any dysuria. No headache, blurry vision, no neck pain, no neck stiffness, no new rashes, no known shingles rash. At [facility] he received a liter bolus, Dr. Jefferson felt that he was a bit fluid overloaded, so he is told him to come to the emergency room. In the emergency room patient was received sepsis bolus, Zosyn, was put on 2 L nasal cannula. Blood pressure on presentation 99/69, pulse 120, temperature 98.2, on 6 L. Chest x-ray does not show focal pneumonia, no UA evidence of UTI, no significant leukocytosis, lactic acid is 2.6, hospitalist team was called for admission for sepsis, fever of unknown origin, and cancer patient/on chemotherapy. CT of his chest showed an unstable T8 fracture Review of Systems General: Reports: 10 or more systems reviewed and unremarkable except in HPI and below Const: Reports: fever(s), chills, fatigue and malaise; Denies: diaphoresis Eyes: Denies: change in vision or blurry vision ENMT: Denies: nasal congestion Card: Denies: chest pain, palpitations, edema, lightheadedness or syncope Resp: Reports: dyspnea, productive cough and change in phlegm color; Denies: non-productive cough, wheezing or hemoptysis GI: Reports: abdominal pain, nausea, diarrhea and constipation; Denies: vomiting, hematemesis, hematochezia or melena : Denies: flank pain, difficulty urinating, dysuria, urinary frequency, urinary urgency or urinary hesitancy Musc: Denies: neck pain or back pain Skin/Breast: Denies: rash Neuro: Denies: headache(s), dizziness, vertigo or confusion Psych: Denies: anxiety or depression Endo: Denies: polyuria or polydipsia Noe/Lymph: Denies: easy bruising Meds/Allergies Home Medications and Allergies Home Medications Medication Instructions Recorded Confirmed Last Taken Type dexamethasone 4 mg tablet 4 mg PO DAILY@08 02/28/20 10/03/20 10/03/20 History folic acid 1 mg PO DAILY@08 06/13/20 10/03/20 10/03/20 History lorazepam [Ativan] 1 mg PO TID PRN 07/08/20 10/03/20 10/02/20 History prochlorperazine maleate 10 mg PO Q4H PRN 07/08/20 10/03/20 07/08/20 History oxycodone-acetaminophen 1 tab PO Q4H PRN 08/22/20 10/03/20 Unknown History Allergies Allergy/AdvReac Type Severity Reaction Status Date / Time No Known Allergies Allergy Verified 07/08/20 12:38 Current Medications Current Medications Generic Name Dose Route Start Last Admin Trade Name Edilbertoq PRN Reason Stop Dose Admin Dexamethasone 4 mg 10/04/20 08:00 10/04/20 09:52 Dexamethasone 4 Mg Tablet PO 4 mg DAILY@08 [facility] Administration Folic Acid 1 mg 10/04/20 08:00 10/04/20 09:52 Folic Acid 1 Mg Tablet PO 1 mg DAILY@08 [facility] Administration Heparin Sodium (Beef Lung) 5,000 unit 10/03/20 18:00 10/04/20 06:04 Heparin 5,000 Unit/Ml Inj 1 Ml SUBCUT 5,000 unit Q12H TYRELL Administration Vancomycin HCl 1,000 mg/ 250 mls @ 250 mls/hr 10/03/20 20:00 10/03/20 22:12 Sodium Chloride IV Infused Q12H TYRELL Infusion Protocol Piperacillin Sod/Tazobactam 50 mls @ 12.5 mls/hr 10/03/20 23:00 10/04/20 06:04 Sod 3.375 gm/ Sodium Chloride IV 12.5 mls/hr Q8H TYRELL Administration Protocol Azithromycin 500 mg/ Sodium 250 mls @ 250 mls/hr 10/04/20 08:00 10/04/20 09:49 Chloride IV 250 mls/hr Q24H TYRELL Administration Protocol Pantoprazole Sodium 40 mg 10/04/20 09:00 10/04/20 09:50 Pantoprazole 40 Mg Sdv IVP 40 mg DAILY TYRELL Administration Vancomycin HCl 125 mg 10/04/20 09:00 10/04/20 09:54 Vancomycin 1,000 Mg Oral Priya (Btl) PO 1.25 ml QID TYRELL Administration PFSH Acute PFSH: Medical History Chronic viral hepatitis C With reported prior treatment. COPD (chronic obstructive pulmonary disease) DDD (degenerative disc disease) Ganglion cyst GI bleeding HTN (hypertension) Malignant neoplasm of prostate Malignant neoplasm of upper lobe, left bronchus or lung Metastatic lung cancer (metastasis from lung to other site) Scalp mass Surgical History History of surgical removal of ganglion cyst Hx of tonsillectomy Port-A-Cath in place (06/16/20) Family History Father CAD (coronary artery disease) Cancer Social History Smoking and tobacco status: former smoker Quit status (tobacco): has quit using tobacco Year quit tobacco: 2020 - Hx of 1PPD x 50 Y Second hand smoke exposure: Yes Alcohol intake: former Lives independently: Yes Household members: spouse Marital status: Current occupational status: retired History of recent travel: No Current gender identity: Male Dietary Habits: Current diet type/program: regular Caffeine: No Vitals/I&O/Wt Last Vital Signs Temp 98 F 10/04/20 06:00 Pulse 83 10/04/20 06:00 Resp 22 H 10/04/20 06:00 BP 117/66 10/04/20 06:00 Pulse Ox 97 10/04/20 06:00 10/03/20 10/04/20 10/04/20 22:59 06:59 14:59 Intake Total 1300 / 1300 170 / 1470 Output Total 125 / 125 275 / 400 Balance 1175 / 1175 -105 / 1070 Weight last 48 hrs Weight 155 lb 12.8 oz Weight 155 lb 12.8 oz Weight 155 lb Physical Exam Narrative: EXAM NARRATIVE: Const: COMMON NORMALS: no acute distress and patient oriented x3 GENERAL APPEARANCE: cooperative and comfortable Eye: COMMON NORMALS: Equal, round and reactive pupils present and EOMs intact bilaterally GENERAL EYE: appearance normal, both eyes and all related structures PUPIL: Yes Equal, round and reactive pupils present Lymph: LYMPHATIC: no lymphadenopathy noted Chest: OTHER: Right PowerPort in place Resp: COMMON NORMALS: normal respiratory effort, No retractions and No use of accessory muscles OTHER: Wheezing on exam Cardio: COMMON NORMALS: regular rate, regular rhythm, S1 normal heart sound present, S2 normal heart sound present, No gallops present (Cardio), No clicks present (Cardio) and No murmurs present (Cardio) RATE: regular rate RHYTHM: regular rhythm HEART SOUNDS: S1 normal heart sound present and S2 normal heart sound present GI: COMMON NORMALS: Normal to inspection, nondistended, normoactive bowel sounds present and Soft to palpation PALPATION: Yes Soft to palpation Extremity: COMMON NORMALS: normal to inspection, full ROM and no pedal edema Neuro: COMMON NORMALS: patient oriented x3, CN's II-XII intact bilaterally, moves all extremities and no focal motor deficits Psych: COMMON NORMALS: mental status grossly normal, Normal thought process present and cooperative THOUGHT PROCESS: Normal thought process present Data Micro: Micro: Microbiology 10/03/20 20:10 Bacterial Antigens - Final Urine,Voided 10/04/20 05:00 C.difficile Toxin B Gene (PCR) - Fin al Stool 10/04/20 05:00 Stool Lactoferrin - Final Stool 10/04/20 05:00 Occult Blood (FIT) - Final Stool 10/03/20 13:28 Blood Culture - Pr eliminary Blood SPECIMEN [facility] 10/03/20 13:15 Blood Culture - Pr eliminary Blood SPECIMEN [facility] A&P Assessment and plan (1) Closed T8 spinal fracture: discussed with patient that he has an unstable spine fracture. If he gets up without having surgery he could become paralyzed. will talk to family to discuss wht treatment options the patient and family want including hospice. 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
--- NOTE | 2020-10-04 10:36 | PC.OT ---
Per physical therapy, occupational therapy eval order cancelled.
--- NOTE | 2020-10-04 11:35 | P.PN_ITS ---
Subjective Subjective: Interval history: Patient was seen this morning, multiple times, also I had a family meeting below is a discussion I had with patient, his family, in the presence of nursing staff and and Dr. 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 Denson, the likelihood of him responding to his second line treatment is less than 20%, -In terms of his overall prognosis, I discussed with Dr. Denson, it is hard for us to predict, given the natural history of the cancer, he is likely to suffer complications from the cancer, however a general titrating is a few weeks to a few months, 6 months at its best. But again it is hard for us to predict how the natural history of this cancer will progress, and how long he has to live. -Now he is hospitalization -He has sepsis secondary to pneumonia, he has not required pressors, but is on broad-spectrum antibiotic therapy, is leukopenic, requiring 2 L of oxygen. Given his cancer and his recent history of chemotherapy, this is quite significant, there is high risk of septic shock, significant risk of morbidity mortality, but currently he is clinically stable. Receiving oxygen therapy, broad-spectrum antibiotic therapy -He also has C. difficile colitis, receiving p.o. vancomycin -He also has evidence of liver metastasis which family tells me that they are aware of -He now also has a pathologic lesion in his L2 vertebral body -However what is now more pressing and concerning is is that he has a T8 spinal fracture, which is unstable, with spinal cord impingement likely explaining his back pain and his progressive weakness, I advised patient and family members that this is quite concerning and life-threatening and resulting in significant debility and morbidity, as he will result in paralysis below the level of T8. I have consulted Dr. Allison, Dr. Olivares was present, options that were provided to family members and patient was first pursuing surgical intervention if he was deemed a suitable surgical candidate, which would carry significant risks, significant risk of morbidity and mortality as it would be an extensive surgery. Given his lung cancer, slow functional decline, poor functional status, he is likelihood of surviving surgery and having a meaningful recovery is fairly unlikely but there is certainly a possibility. Nonetheless, him being medically cleared for surgery is quite difficult, he is likely a high risk for high risk surgery, but he would have to have further evaluation including a cardiac evaluation and a pulmonary evaluation. Second option that was raised for family members and patient was not doing anything and he remains on bedrest, however with any movement or any significant exertion, there is that risk of worsening of his pathologic fracture and spinal cord impingement resulting in paralysis. I apologized to the patient and found members, this is a very difficult situation, the options are quite limited, and the choices quite difficult. -Patient has already voiced to Dr. Allison that he does not want surgery, he also voiced to me that he does not want surgery -In terms of discussing options, I advised patient that hospice is a reasonable option, given the critical nature of his T8 spinal fracture, and his overall poor prognosis with his lung cancer, hospice would allow him to be at home, with family emerged, week we could treat his pain, treat his anxiety, and if he were to suffer paralysis from the T8 fracture we could also help manage that, Enrique catheter, pain control, and further management as such -Patient has told me that he does not want to have aggressive interventions, he does not want to have aggressive testing, he wants to be at home with his family, but is worried that his family cannot take care of him, I advised patient that we can arrange home hospice -For now patient wants us to continue medical intervention continue antibiotics, but avoid aggressive interventions, group aggressive testing -I will not pursue further imaging of the spine, or even MRI of the brain as moving patient does carry considerable risks of paralysis -Patient tells me that he wants to remain a DNR, and he does not want to be intubated advised the risk of benefits, wishes any, all questions answered -Patient is receptive towards hospice, but he would like to discuss with his family, -I advised patient that currently we will continue antibiotics, if he is in pain we can always give him morphine, a Ativan for anxiety, will place a Enrique for comfort -I also discussed the case as above with family, and a family meeting, what I gauge from family is is that they do not want have aggressive interventions, they will feel that that her father would want a do aggressive interventions, aggressive testing, he would not want to go to a residential, and that the only reasonable option would be going home with some sort of plan such as hospice, but like above they would like to discuss with her father and her Vitals/I&O/Wt Last Vital Signs Temp 98 F 10/04/20 06:00 Pulse 90 10/04/20 10:51 Resp 22 H 10/04/20 06:00 BP 117/66 10/04/20 06:00 Pulse Ox 97 10/04/20 10:51 10/03/20 10/04/20 10/04/20 22:59 06:59 14:59 Intake Total 1300 / 1300 170 / 1470 50 / 50 Output Total 125 / 125 275 / 400 150 / 150 Balance 1175 / 1175 -105 / 1070 -100 / -100 Weight last 48 hrs Weight 70.67 kg Weight 70.67 kg Weight 70.307 kg Physical Exam Const: COMMON NORMALS: no acute distress and patient oriented x3 GENERAL APPEARANCE: cooperative, ill appearing and frail appearing Resp: COMMON NORMALS: normal respiratory effort, No retractions, No use of accessory muscles and clear to auscultation bilaterally AUSCULTATION: clear to auscultation bilaterally Cardio: COMMON NORMALS: regular rate, regular rhythm, S1 normal heart sound present and S2 normal heart sound present RATE: regular rate RHYTHM: regular rhythm HEART SOUNDS: S1 normal heart sound present and S2 normal heart sound present GI: COMMON NORMALS: Normal to inspection, nondistended, normoactive bowel sounds present, Soft to palpation and non-tender PALPATION: Yes Soft to palpation Extremity: COMMON NORMALS: no pedal edema Neuro: COMMON NORMALS: patient oriented x3, CN's II-XII intact bilaterally, moves all extremities, no focal motor deficits and no sensory deficits noted Data : 10/03/20 13:15 10/03/20 13:15 Micro: Microbiology 10/03/20 20:10 Bacterial Antigens - Final Urine,Voided 10/04/20 05:00 C.difficile Toxin B Gene (PCR) - Final Stool 10/04/20 05:00 Stool Lactoferrin - Final Stool 10/04/20 05:00 Occult Blood (FIT) - Final Stool 10/03/20 13:28 Blood Culture - Preliminary Blood SPECIMEN COLLECTED 10/03/20 13:15 Blood Culture - Preliminary Blood SPECIMEN COLLECTED A&P Assessment and plan (1) Sepsis: -Sepsis criteria met on admission due to hypotension, blood pressure 90s over 60s, tachycardia heart rates in the 120s, on 6 L, lactic acid 2.6, CRP 111, leukopenic white blood cell count 1.8 -Has received sepsis bolus, has received Zosyn, alert oriented x3, following all commands -On chemotherapy, immunocompromised with metastatic lung cancer -Etiology secondary to pneumonia and C. difficile colitis -Stool studies positive for C. difficile -Bibasilar groundglass opacities right greater than left, concerning for pneumonia -Rapid Covid negative, Covid PCR pending -UA no evidence of UTI -No neck pain, no neck stiffness, no headache, blurry vision Plan: -Admit to intensive care unit -Isolation protocols, Covid isolation protocols, chemotherapy precautions, neutropenic precautions -Oxygen therapy, consult respiratory therapy -Avoid fluid overload BMP pending, echo pending -Broad-spectrum antibiotic therapy, vancomycin, Zosyn, azithromycin -P.o. vancomycin for C. difficile, rectal tube if needed -Levophed as needed to maintain MAP greater than 65 -Urine cultures, blood cultures, sputum cultures, urine bacterial antigen, respiratory viral cultures, COVID-19 PCR -Protonix for GI prophylaxis -Heparin for GI prophylaxis - IV access port -Place Enrique for comfort -Nutrition consult -Above I will emphasize comfort according to patient, he wants to avoid aggressive interventions, aggressive testing, if he starts to clinically deteriorate, will discuss about pursuing full comfort care -Before now can have morphine for pain, Ativan for anxiety, oxygen therapy, Enrique catheter for comfort -Although patient is leaning towards hospice, he wants to discuss with family numbers about pursuing hospice Status: Acute Qualifiers: Sepsis acute organ dysfunction status: unspecified Sepsis type: sepsis due to unspecified organism Qualified Code(s): A41.9 - Sepsis, unspecified organism (2) Leukopenia: Status: Acute Qualifiers: Leukopenia type: unspecified Qualified Code(s): D72.819 - Decreased white blood cell count, unspecified (3) Metastatic lung cancer (metastasis from lung to other site): Status: Acute (4) Protein-calorie malnutrition, severe: Status: Acute (5) Thrombocytopenia: Status: Acute (6) Anemia: Status: Acute (7) Emphysema lung: Status: Acute (8) Adenocarcinoma of left lung, stage 4: Status: Acute (9) Malignant neoplasm of upper lobe, left bronchus or lung: Status: Acute (10) Hypoxia: Status: Acute (11) Fever of unknown origin: Status: Acute (12) Physical deconditioning: Status: Acute (13) Pneumonia: Status: Acute (14) Closed T8 spinal fracture: -Extensive pathologic destruction of T8 with pathologic 2 column fracture and 3 column lytic destruction. This is an unstable fracture. There is 4 mm retropulsed bone resulting in moderate to severe stenosis of the spinal canal. This bony destruction and fracture is new compared to the prior chest -Dr. Allison on consult -has more generalized weakness, I cannot discern any focal neurologic deficits, no paresthesias -patient does not want to have surgical intervention -Wants to pursue conservative management, medical management including pain control, bedrest -Place Enrique for comfort -Patient wants to discuss with family members about pursuing hospice Status: Acute (15) C. difficile colitis: Status: Acute Attestations Medical Necessity Statement*: Patient requires hospitalization, inpatient, greater than 2 midnights, for sepsis secondary to pneumonia, C. difficile colitis, physical deconditioning, pathologic T8 fracture Coding Level of Care Code Acute Felt Hat Pouncing Operator Hand for [facility] Diagnoses Sepsis A41.9 Sepsis acute organ dysfunction status: unspecified Sepsis type: sepsis due to unspecified organism Leukopenia D72.819 Leukopenia type: unspecified Metastatic lung cancer (metastasis from lung to other site) C34.90 Protein-calorie malnutrition, severe E43 Thrombocytopenia D69.6 Anemia D64.9 Emphysema lung J43.9 Adenocarcinoma of left lung, stage 4 C34.92 Malignant neoplasm of upper lobe, left bronchus or lung C34.12 Hypoxia R09.02 Fever of unknown origin R50.9 Physical deconditioning R53.81 Pneumonia J18.9 Closed T8 spinal fracture S22.069A C. difficile colitis A04.72
[2020-10-04] MEDS: vancomycin 1,000 MG in sodium chloride 0.9% 250 ML 250 MG IV (12:11)
--- NOTE | 2020-10-04 14:15 | PC.NURSE ---
Pt status Dr. Goss discussed pt status and options with pt this morning around 0730. Discussed T8 and L2 fracture due to metastatic cancer. Dr. Olivares also came and discussed this with the pt. Both doctors discussed care with patient and patient's family including and two daughters. Dr. Goss discussed care with Dr. Denson and relayed information and prognosis to patient and family from Dr. Denson. Patient does not want surgery and wants to be an AND code status. Tentative plan to continue antibiotics here in hospital for now and possibly go home on hospice.
[2020-10-04 19:44] LABS: Vancomycin Trough 12.5 ug/mL (10-15)
[2020-10-04] MEDS: vancomycin 1,000 MG in sodium chloride 0.9% 250 ML 200 MG IV (20:27)
[2020-10-05] VITALS (27 sets, daily range): BP systolic 92–132; BP diastolic 52–82; PULSE 59–92; RESP 12–28; TEMP 36.6–36.9; O2SAT 91–100; BMI 21.1; BMI 20.9
[2020-10-05] MEDS: LORazepam 1 mg Tablet PO (00:14)
[2020-10-05] MEDS: oxyCODONE-APAP 5-325 mg Tablet 1 TAB PO ×2 (05:08→14:37)
[2020-10-05] MEDS: piperacillin-tazobactam 3.375 GM in sodium chloride 0.9% (plus) 50 ML IV ×3 (06:16→23:46)
--- NOTE | 2020-10-05 07:07 | PC.NURSE ---
Report received. Pt assessment completed. AAOx4, makes all needs known. No issues noted. Denies any pain. Will monitor.
[2020-10-05 07:09] LABS: Basophils % 0.8 %; Eosinophils % 0.4 %; Hematocrit 24.6 % (42.0-52.0); Lymphocytes # 0.4 10^3/uL (0.8-4.8); Lymphocytes % 14.5 %; Mean Corpuscular HGB Conc 32.9 g/dL (30.0-36.0); Mean Corpuscular Volume 97.2 fL (80-94); Mean Platelet Volume 9.9 fL (7.4-10.4); Monocytes # 0.1 10^3/uL (0.2-0.9); Monocytes % 4.7 %; Neutrophils # 2.01 10^3/uL (1.8-7.7); Neutrophils % 78.4 %; Nucleated Red Blood Cells % 0 %; Platelet Count 101 10^3/cmm (130-400); Red Blood Count 2.53 10^6/uL (4.1-5.3); Red Cell Distribution Width 17.1 % (12.1-15.1); White Blood Count 2.6 10^3/uL (4.0-10.0)
[2020-10-05 07:26] LABS: Alanine Aminotransferase 21 U/L (0-41); Albumin Level 2.7 g/dL (3.5-5.2); Alkaline Phosphatase 98 IU/L (40-130); Anion Gap 9.4 (5-19); Aspartate Amino Transferase 17 U/L (0-40); Blood Urea Nitrogen 12 mg/dL (8-23); Carbon Dioxide 27 mmol/L (22-29); Chloride 100 mmol/L (98-107); Globulin 2.2 g/dL (1.3-4.6); Glucose 85 mg/dL (65-115); Magnesium 1.5 mg/dL (1.7-2.3); Osmolality Calculated 275 mOsm/kg (285-295); Phosphorus 2.1 mg/dL (2.5-4.5); Potassium 3.4 mmol/L (3.5-5.1); Sodium 133 mmol/L (136-145); Total Bilirubin 0.3 mg/dL (0.15-1.2); Total Protein 4.9 g/dL (6.6-8.7)
[2020-10-05 07:56] LABS: Hemoglobin 8.1 g/dL (11.7-16.6); Slide Review Slide Review Perform
[2020-10-05] MEDS: azithromycin 500 MG in sodium chloride 0.9% 250 ML 250 MG IV (08:00)
[2020-10-05] MEDS: vancomycin 1,000 MG in sodium chloride 0.9% 250 ML 250 MG IV ×2 (08:00→19:12)
[2020-10-05] MEDS: dexamethasone 4 mg Tablet PO (08:01)
[2020-10-05] MEDS: folic acid 1 mg Tablet PO (08:01)
[2020-10-05] MEDS: pantoprazole 40 mg SDV IVP (08:06)
--- NOTE | 2020-10-05 08:59 | PC.NURSE ---
Pt able to move all extremities. Swallowed meds with pudding with therapy in room. Tolerated well. Making some unintelligible sounds. Able to shake head yes and no for questions. Able to stand at side of bed with mod to max assist. Assisted back to bed. Repositioned in bed. Will monitor.
--- NOTE | 2020-10-05 09:21 | PM.PN ---
Subjective Subjective: Interval history: States he slept overnight. Denies any pain. has discussed with his family and they deided about returning home with hospice. Vitals/I&O/Wt Last Vital Signs Temp 97.8 F 10/05/20 05:00 Pulse 89 10/05/20 08:20 Resp 12 10/05/20 08:00 BP 111/69 10/05/20 08:00 Pulse Ox 95 10/05/20 08:20 10/04/20 10/05/20 10/05/20 22:59 06:59 14:59 Intake Total 540 / 1210 50 / 1260 200 / 200 Output Total 425 / 775 400 / 1175 Balance 115 / 435 -350 / 85 200 / 200 Weight last 48 hrs Weight 70.67 kg Weight 70.67 kg Weight 70.67 kg Weight 70.307 kg Physical Exam Const: COMMON NORMALS: no acute distress and patient oriented x3 GENERAL APPEARANCE: frail appearing HENMT: COMMON NORMALS: oropharynx normal Neck/C-Spine: COMMON NORMALS: no JVD Resp: COMMON NORMALS: normal respiratory effort and clear to auscultation bilaterally AUSCULTATION: clear to auscultation bilaterally Cardio: COMMON NORMALS: no JVD, regular rhythm, S1 normal heart sound present, S2 normal heart sound present and No murmurs present (Cardio) RHYTHM: regular rhythm HEART SOUNDS: S1 normal heart sound present and S2 normal heart sound present GI: COMMON NORMALS: Normal to inspection, nondistended, normoactive bowel sounds present, Soft to palpation and non-tender PALPATION: Yes Soft to palpation Extremity: COMMON NORMALS: no joint enlargement and no pedal edema Neuro: COMMON NORMALS: patient oriented x3 and moves all extremities Skin: COMMON NORMALS: no rashes or lesions noted GENERAL SKIN EXAM: no rashes or lesions noted Data : 10/05/20 06:15 10/05/20 06:15 Micro: Microbiology 10/04/20 07:30 Gram Stain - Final Sputum - Expectorated Sputum Sputum Culture - Preliminary Yeast 10/03/20 13:15 Blood Culture - Preliminary Blood 10/03/20 13:28 Blood Culture - Preliminary Blood NEGATIVE TO DATE 10/04/20 05:00 Enteric Pathogens (PCR) - Final Stool Parasite Antigen Panel - Final Occult Blood (FIT) - Final 10/03/20 20:10 Bacterial Antigens - Final Urine,Voided 10/04/20 05:00 C.difficile Toxin B Gene (PCR) - Final Stool 10/04/20 05:00 Stool Lactoferrin - Final Stool A&P Assessment and plan (1) Sepsis: Improving. Leukopenia with some improvement. Continue antibiotics for PNA and C diff colitis. Status: Acute Qualifiers: Sepsis acute organ dysfunction status: unspecified Sepsis type: sepsis due to unspecified organism Qualified Code(s): A41.9 - Sepsis, unspecified organism (2) Closed T8 spinal fracture: He tells me he has decided against surgery or aggressive intervention. He states discussed with family and will proceed with returning home with hospice care. Discussed w case management. They will help with the arrangements, which I'm told will have to be finalized tomorrow. Status: Acute (3) Leukopenia: Status: Acute Qualifiers: Leukopenia type: unspecified Qualified Code(s): D72.819 - Decreased white blood cell count, unspecified (4) Metastatic lung cancer (metastasis from lung to other site): Status: Acute (5) Protein-calorie malnutrition, severe: Status: Acute (6) Thrombocytopenia: Status: Acute (7) Anemia: Status: Acute (8) Emphysema lung: Status: Acute (9) Adenocarcinoma of left lung, stage 4: Status: Acute (10) Malignant neoplasm of upper lobe, left bronchus or lung: Status: Acute (11) Hypoxia: Status: Acute (12) Fever of unknown origin: Status: Acute (13) Physical deconditioning: Status: Acute (14) Pneumonia: Status: Acute (15) C. difficile colitis: Status: Acute Attestations Medical Necessity Statement*: Continue treatment of pneumonia, C diff colitis, goals of care planning and disposition arrangements. Coding Level of Care Code Acute Legal Secretary for [facility] Diagnoses Sepsis A41.9 Sepsis acute organ dysfunction status: unspecified Sepsis type: sepsis due to unspecified organism Closed T8 spinal fracture S22.069A Leukopenia D72.819 Leukopenia type: unspecified Metastatic lung cancer (metastasis from lung to other site) C34.90 Protein-calorie malnutrition, severe E43 Thrombocytopenia D69.6 Anemia D64.9 Emphysema lung J43.9 Adenocarcinoma of left lung, stage 4 C34.92 Malignant neoplasm of upper lobe, left bronchus or lung C34.12 Hypoxia R09.02 Fever of unknown origin R50.9 Physical deconditioning R53.81 Pneumonia J18.9 C. difficile colitis A04.72
--- NOTE | 2020-10-05 12:32 | PC.NURSE ---
horticulture worker spoke with family regarding dc home on hospice and arranging for a hospital bed. Hospital bed may not be available until tomorrow, Tuesday. Pt aware of possibility.
[2020-10-05] MEDS: potassium chloride ER 20 mEq Tablet PO (14:48)
[2020-10-05] MEDS: magnesium sulfate premix 2 GM/50 ML PIGGYBACK IV (14:49)
[2020-10-05] MEDS: heparin 5,000 unit/mL INJ 1 mL 5000 UNIT SUBCUT (17:14)
--- NOTE | 2020-10-05 17:46 | PC.NURSE ---
Pt to possibly tx home tomorrow on hospice. Denies any needs. Pt asked about having a BM, education provided that staff would log roll pt and place fx arroyo under pt. Pt verbalizes understanding. Will monitor.
[2020-10-06] VITALS (26 sets, daily range): BP systolic 96–134; BP diastolic 60–93; PULSE 62–101; RESP 12–21; TEMP 36.6–36.9; O2SAT 93–99
[2020-10-06] MEDS: heparin 5,000 unit/mL INJ 1 mL 5000 UNIT SUBCUT ×2 (05:07→17:04)
[2020-10-06] MEDS: piperacillin-tazobactam 3.375 GM in sodium chloride 0.9% (plus) 50 ML IV ×3 (06:00→22:27)
[2020-10-06] MEDS: oxyCODONE-APAP 5-325 mg Tablet 1 TAB PO (06:01)
[2020-10-06 06:08] LABS: Basophils % 0.6 %; Eosinophils % 0.3 %; Hematocrit 25.8 % (42.0-52.0); Hemoglobin 8.4 g/dL (11.7-16.6); Lymphocytes # 0.4 10^3/uL (0.8-4.8); Lymphocytes % 13.1 %; Mean Corpuscular HGB Conc 32.6 g/dL (30.0-36.0); Mean Corpuscular Hemoglobin 31.6 pg (28.0-34.0); Mean Platelet Volume 10.1 fL (7.4-10.4); Monocytes # 0.2 10^3/uL (0.2-0.9); Neutrophils # 2.57 10^3/uL (1.8-7.7); Neutrophils % 80.1 %; Nucleated Red Blood Cells % 0 %; Platelet Count 104 10^3/cmm (130-400); Red Blood Count 2.66 10^6/uL (4.1-5.3); Red Cell Distribution Width 16.8 % (12.1-15.1); White Blood Count 3.2 10^3/uL (4.0-10.0)
--- NOTE | 2020-10-06 06:16 | PC.NURSE ---
Uneventful Shift: No acute changes overnight. Patient received pain medication do to pain reports this morning. Continue care.
[2020-10-06 06:35] LABS: Alanine Aminotransferase 19 U/L (0-41); Albumin Level 2.7 g/dL (3.5-5.2); Alkaline Phosphatase 110 IU/L (40-130); Anion Gap 11.4 (5-19); Aspartate Amino Transferase 16 U/L (0-40); Blood Urea Nitrogen 7 mg/dL (8-23); Calcium 7.8 mg/dL (8.5-10.5); Carbon Dioxide 27 mmol/L (22-29); Chloride 102 mmol/L (98-107); Globulin 2.2 g/dL (1.3-4.6); Glucose 75 mg/dL (65-115); Magnesium 1.6 mg/dL (1.7-2.3); Osmolality Calculated 281 mOsm/kg (285-295); Phosphorus 1.5 mg/dL (2.5-4.5); Potassium 3.4 mmol/L (3.5-5.1); Sodium 137 mmol/L (136-145); Total Bilirubin 0.3 mg/dL (0.15-1.2); Total Protein 4.9 g/dL (6.6-8.7)
[2020-10-06 06:38] LABS: Slide Review Slide Review Perform
--- NOTE | 2020-10-06 07:34 | PC.NURSE ---
Report received from Patricia GUTIERREZ. Pt resting with eyes closed. Remains in ISO until covid test comes back. No issues noted. Will monitor.
[2020-10-06 07:49] LABS: Vancomycin Trough 14.7 ug/mL (10-15)
[2020-10-06] MEDS: azithromycin 500 MG in sodium chloride 0.9% 250 ML 250 MG IV (08:18)
[2020-10-06] MEDS: pantoprazole 40 mg SDV IVP (08:18)
[2020-10-06] MEDS: dexamethasone 4 mg Tablet PO (08:19)
[2020-10-06] MEDS: folic acid 1 mg Tablet PO (08:19)
[2020-10-06] MEDS: magnesium sulfate premix 2 GM/50 ML PIGGYBACK IV (08:19)
[2020-10-06] MEDS: phosphorus 250 mg Tablet PO ×2 (08:19→17:04)
[2020-10-06] MEDS: vancomycin 1,000 MG in sodium chloride 0.9% 250 ML 250 MG IV ×2 (09:17→20:18)
--- NOTE | 2020-10-06 14:13 | PC.SOCIAL ---
IMM updated IMM updated with patient's via telephone, no questions voiced. Initialed, dated, timed and placed in chart.
--- NOTE | 2020-10-06 21:00 | PM.PN ---
Subjective Subjective: Interval history: Having back pain today. Vitals/I&O/Wt Last Vital Signs Temp 98.5 F 10/06/20 20:00 Pulse 89 10/06/20 20:00 Resp 16 10/06/20 20:00 BP 116/77 10/06/20 20:00 Pulse Ox 94 10/06/20 20:00 10/06/20 10/06/20 10/06/20 06:59 14:59 22:59 Intake Total 50 / 1510 1320 / 1320 530 / 1850 Output Total 550 / 1600 400 / 400 300 / 700 Balance -500 / -90 920 / 920 230 / 1150 Weight last 48 hrs Weight 76.685 kg Weight 70.307 kg Weight 70.67 kg Physical Exam Const: COMMON NORMALS: no acute distress and patient oriented x3 GENERAL APPEARANCE: frail appearing HENMT: COMMON NORMALS: oropharynx normal Neck/C-Spine: COMMON NORMALS: no JVD Resp: COMMON NORMALS: normal respiratory effort and clear to auscultation bilaterally AUSCULTATION: clear to auscultation bilaterally Cardio: COMMON NORMALS: no JVD, regular rhythm, S1 normal heart sound present, S2 normal heart sound present and No murmurs present (Cardio) RHYTHM: regular rhythm HEART SOUNDS: S1 normal heart sound present and S2 normal heart sound present GI: COMMON NORMALS: Normal to inspection, nondistended, normoactive bowel sounds present, Soft to palpation and non-tender PALPATION: Yes Soft to palpation Extremity: COMMON NORMALS: no joint enlargement and no pedal edema Neuro: COMMON NORMALS: patient oriented x3 and moves all extremities Skin: COMMON NORMALS: no rashes or lesions noted GENERAL SKIN EXAM: no rashes or lesions noted Data : 10/06/20 04:50 10/06/20 04:50 Micro: Microbiology 10/03/20 13:15 Blood Culture - Preliminary Blood Corynebacterium species 10/03/20 20:10 Urine Culture - Final Urine,Voided Bacterial Antigens - Final A&P Assessment and plan (1) Sepsis: Likely resolved. Leukopenia persists somewhat, not neutropenic. No tachycardia or tachypnea. Afebrile. Continue antibiotics for PNA and C diff colitis. Status: Acute Qualifiers: Sepsis acute organ dysfunction status: unspecified Sepsis type: sepsis due to unspecified organism Qualified Code(s): A41.9 - Sepsis, unspecified organism (2) Closed T8 spinal fracture: Arrangements are being made for hospice care at home where he would like to return. With back pain today, add oral morphine. Discussed with orthospine, there are not any specific beneficial precautions that may prevent collapse of the unstable spinal fractures given severity of the disease. He tells me he has decided against surgery or aggressive intervention. Hospice arrangements, equipment underway for family to receive him at home. Status: Acute (3) Leukopenia: Status: Acute Qualifiers: Leukopenia type: unspecified Qualified Code(s): D72.819 - Decreased white blood cell count, unspecified (4) Metastatic lung cancer (metastasis from lung to other site): Status: Acute (5) Protein-calorie malnutrition, severe: Status: Acute (6) Thrombocytopenia: Status: Acute (7) Anemia: Status: Acute (8) Emphysema lung: Status: Acute (9) Adenocarcinoma of left lung, stage 4: Status: Acute (10) Malignant neoplasm of upper lobe, left bronchus or lung: Status: Acute (11) Hypoxia: Status: Acute (12) Fever of unknown origin: Status: Acute (13) Physical deconditioning: Status: Acute (14) Pneumonia: Status: Acute (15) C. difficile colitis: Status: Acute Attestations Medical Necessity Statement*: Continue antibiotic therapy for pneumonia, C. difficile colitis after resolving sepsis, disposition arrangements, preparation for return home with hospice care. Coding Level of Care Code Acute Meat Stocker for [facility] F[facility] Diagnoses Sepsis A41.9 Sepsis acute organ dysfunction status: unspecified Sepsis type: sepsis due to unspecified organism Closed T8 spinal fracture S22.069A Leukopenia D72.819 Leukopenia type: unspecified Metastatic lung cancer (metastasis from lung to other site) C34.90 Protein-calorie malnutrition, severe E43 Thrombocytopenia D69.6 Anemia D64.9 Emphysema lung J43.9 Adenocarcinoma of left lung, stage 4 C34.92 Malignant neoplasm of upper lobe, left bronchus or lung C34.12 Hypoxia R09.02 Fever of unknown origin R50.9 Physical deconditioning R53.81 Pneumonia J18.9 C. difficile colitis A04.72
[2020-10-07] VITALS (15 sets, daily range): BP systolic 87–133; BP diastolic 57–89; PULSE 74–128; RESP 9–22; TEMP 36.6–36.7; O2SAT 88–97
[2020-10-07 01:18] LABS: Quest SARS-CoV-2 RNA NOT DETECTED (NOT DETECTED)
[2020-10-07] MEDS: LORazepam 1 mg Tablet PO (02:45)
[2020-10-07 05:05] LABS: Hematocrit 28.2 % (42.0-52.0); Hemoglobin 9.1 g/dL (11.7-16.6); Mean Corpuscular HGB Conc 32.3 g/dL (30.0-36.0); Mean Corpuscular Hemoglobin 31.2 pg (28.0-34.0); Mean Corpuscular Volume 96.6 fL (80-94); Mean Platelet Volume 9.8 fL (7.4-10.4); Platelet Count 126 10^3/cmm (130-400); Red Blood Count 2.92 10^6/uL (4.1-5.3); Red Cell Distribution Width 17.1 % (12.1-15.1); White Blood Count 3.4 10^3/uL (4.0-10.0)
[2020-10-07] MEDS: heparin 5,000 unit/mL INJ 1 mL 5000 UNIT SUBCUT (05:26)
[2020-10-07 05:28] LABS: Alanine Aminotransferase 19 U/L (0-41); Albumin Level 2.9 g/dL (3.5-5.2); Alkaline Phosphatase 128 IU/L (40-130); Anion Gap 11.4 (5-19); Aspartate Amino Transferase 15 U/L (0-40); Blood Urea Nitrogen 6 mg/dL (8-23); Calcium 8.3 mg/dL (8.5-10.5); Carbon Dioxide 29 mmol/L (22-29); Chloride 101 mmol/L (98-107); Globulin 2.5 g/dL (1.3-4.6); Glucose 88 mg/dL (65-115); Magnesium 1.7 mg/dL (1.7-2.3); Osmolality Calculated 283 mOsm/kg (285-295); Phosphorus 2.4 mg/dL (2.5-4.5); Potassium 3.4 mmol/L (3.5-5.1); Sodium 138 mmol/L (136-145); Total Bilirubin 0.4 mg/dL (0.15-1.2); Total Protein 5.4 g/dL (6.6-8.7)
[2020-10-07 05:33] LABS: Slide Review Slide Review Perform
--- NOTE | 2020-10-07 05:33 | PC.NURSE ---
Uneventful shift: No acute changes overnight. Continue care.
[2020-10-07 05:38] LABS: Absolute Neutrophil 2.7 10^3/cmm (1.4-6.5); Absolute Segmented Neutrophil 2.2 10/cmm (1.6-7.1); Anisocytosis 2+; Band Neutrophils Absolute 0.5 10^3/cmm (0.0-1.2); Basophilic Stippling 1+; Eosinophils 0 %; Lymphocytes 15 %; Lymphocytes Absolute 0.5 10^3/cmm (1.2-3.4); Monocytes Absolute 0.2 10^3/cmm (0.1-0.6); Platelet Estimate Decreased (Normal); Poikilocytosis 1+; Polychromasia 1+; Segmented Neutrophils 66 %; Total Cells Counted 100 (0-100)
[2020-10-07 05:39] LABS: Ovalocytes 1+
--- NOTE | 2020-10-07 05:45 | PC.NURSE ---
Covid Results negative, removed from isolation
[2020-10-07] MEDS: piperacillin-tazobactam 3.375 GM in sodium chloride 0.9% (plus) 50 ML IV (06:03)
--- NOTE | 2020-10-07 07:19 | PC.NURSE ---
Report received. Pt resting in bed, no s/s of pain noted. No covid ISO d/t test coming back neg. VSS. Will monitor.
--- NOTE | 2020-10-07 08:04 | P.DS_ITS ---
Discharge Providers Date of Admission: 10/03/20 15:32 Date of Discharge: October 07, 2020 Attending Provider at Admission: Marisol Stevens Attending Provider at Discharge: Alhaji Flores Primary Care Provider: Dali Jimenez MD Diagnoses at Discharge Discharge Diagnosis (1) Sepsis: Status: Acute Qualifiers: Sepsis acute organ dysfunction status: unspecified Sepsis type: sepsis due to unspecified organism Qualified Code(s): A41.9 - Sepsis, unspecified organism (2) Closed T8 spinal fracture: Status: Acute (3) Leukopenia: Status: Acute Qualifiers: Leukopenia type: unspecified Qualified Code(s): D72.819 - Decreased white blood cell count, unspecified (4) Metastatic lung cancer (metastasis from lung to other site): Status: Acute (5) Protein-calorie malnutrition, severe: Status: Acute (6) Thrombocytopenia: Status: Acute (7) Anemia: Status: Acute (8) Emphysema lung: Status: Acute (9) Adenocarcinoma of left lung, stage 4: Status: Acute (10) Malignant neoplasm of upper lobe, left bronchus or lung: Status: Acute (11) Hypoxia: Status: Acute (12) Fever of unknown origin: Status: Acute (13) Physical deconditioning: Status: Acute (14) Pneumonia: Status: Acute (15) C. difficile colitis: Status: Acute Reason for Visit Reason for Visit: WAS HERE FOR TESTS BUT FEELS FAINT/SENT BY [facility] Course Hospital Course 75-year-old gentleman with history of metastatic lung adenocarcinoma with brain mets, status post brain radiation, with mixed response to chemotherapy, with significant side effects from Keytruda/carbo/Alimta, switched over to weekly carboplatin/Taxol, but with consideration of possible hospice care in case not tolerating. Presented after having fevers, productive cough, shortness of breath with exertion, hypotensive, recently has been feeling more weak. Noted to be pancytopenic on presentation. With abdominal pain, alternating diarrhea and constipation. On admission with sepsis. During hospitalization treated for pneumonia, C. difficile colitis. He will complete antibiotic course with Levaquin for pneumonia. Oral vancomycin for C. difficile colitis. Blood cultures from 10/03 revealed Corynebacterium in 1/4 bottles, thought to be contamination. He was tested for COVID-[address] imaging of chest/abdomen/pelvis revealed progressive metastatic disease with enlarging liver masses, enlarging right adrenal mass, new lytic destruction of L2, with expansile lesion expanding the posterior cortex of vertebral body and mildly narrowing the central canal. Pathologic fracture and the more significant stenosis imminent. Orthospine surgery was consulted and weighed options with patient and family. Upon discussion he clearly stated preference not to pursue any surgical intervention, or other aggressive treatment measures, preferring to return home to spend time with his family with hospice support. Physical Exam Narrative: EXAM NARRATIVE: Frail, generally weak. Says could not sleep due to uncomfortable bed and all the noise with the monitors, IV pumps around him. Looking forward to returning home. Const: COMMON NORMALS: no acute distress and patient oriented x3 GENERAL APPEARANCE: frail appearing HENMT: COMMON NORMALS: oropharynx normal Neck/C-Spine: COMMON NORMALS: no JVD Resp: COMMON NORMALS: normal respiratory effort and clear to auscultation bilaterally AUSCULTATION: clear to auscultation bilaterally Cardio: COMMON NORMALS: no JVD, regular rhythm, S1 normal heart sound present, S2 normal heart sound present and No murmurs present (Cardio) RHYTHM: regular rhythm HEART SOUNDS: S1 normal heart sound present and S2 normal heart sound present GI: COMMON NORMALS: Normal to inspection, nondistended, normoactive bowel sounds present, Soft to palpation and non-tender PALPATION: Yes Soft to palpation Extremity: COMMON NORMALS: no joint enlargement and no pedal edema Neuro: COMMON NORMALS: patient oriented x3 and moves all extremities Skin: COMMON NORMALS: no rashes or lesions noted GENERAL SKIN EXAM: no rashes or lesions noted Discharge Data Data Completed and Pending: Completed Studies During Hospitalization Category Date Time Status CT angio chest w abd pel w con Stat Cat Scan 10/03/20 18:03 Completed XR chest 1V malu ble [id number] Stat Exams 10/03/20 12:58 Completed Pending at discharge Category Date Time Status Blood Culture Sta t Lab 10/03/20 13:28 Results CMV IGG&IGM Panel Stat Lab 10/03/20 20:00 Received Respiratory Viral Panel PCR Stat Lab 10/03/20 20:10 Received Sputum Culture an d Gram Stain Stat Lab 10/04/20 07:30 Results Labs from last 24 hours 10/07/20 10/07/20 10/03/20 04:10 04:10 20:10 WBC 3.4 L RBC 2.92 L Hgb 9.1 L Hct 28.2 L MCV 96.6 H MCH 31.2 MCHC 32.3 RDW 17.1 H Plt Count 126 L MPV 9.8 Lymph % (Auto) Not Reportable [place] % (Auto) Not Reportable Lymph # (Auto) Not Reportable [place] # (Auto) Not Reportable Total Counted 100 Atypical Lymphs % 0.0 Absolute Neutrophi ls 2.7 Segmented Neutroph ils 66 Abs Segm Neuts (Ma n) 2.2 Band Neutrophils 14.0 Abs Band Neuts (Ma n) 0.5 Absolute Lymphocyt es 0.5 L Lymphocytes (Manua l) 15 Monocytes (Manual) 5.0 Absolute Monocytes 0.2 Eosinophils (Manua l) 0 Absolute Eosinophi ls 0.0 Basophils (Manual) 0.0 Absolute Basophils 0.0 Platelet Estimate Decreased Polychromasia 1+ H Poikilocytosis 1+ H Basophilic Stippli ng 1+ H Anisocytosis 2+ H Ovalocytes 1+ H Sodium 138 Potassium 3.4 L Chloride 101 Carbon Dioxide 29 Anion Gap 11.4 BUN 6 L Creatinine 0.4 L GFR Calculation Not Reportable Glucose 88 Calculated Osmolal ity 283 L Calcium 8.3 L Phosphorus 2.4 L D Magnesium 1.7 Total Bilirubin 0.4 AST 15 ALT 19 Alkaline Phosphata se 128 Total Protein 5.4 L Albumin 2.9 L Globulin 2.5 SARS-CoV-2 RNA (RT -PCR) Not detected Vitals: Last Vital Signs Temp 98.0 F 10/07/20 00:00 Pulse 96 10/07/20 06:00 Resp 11 L 10/07/20 06:00 BP 100/78 10/07/20 06:00 Pulse Ox 88 L 10/07/20 07:58 Discharge Plan Discharge Patient Disposition: Hospice - Home Condition: Stable Prescriptions: New vancomycin 125 mg capsule 125 mg PO Q6H 7 Days Qty: 28 RF: 0 levofloxacin 750 mg tablet 750 mg PO DAILY 5 Days Qty: 5 RF: 0 morphine concentrate 100 mg/5 mL (20 mg/mL) solution 10 mg PO Q4H PRN (Reason: pain) Qty: 30 RF: 0 Continued dexamethasone 4 mg tablet 4 mg PO DAILY@08 RF: 0 prochlorperazine maleate 10 mg tablet 10 mg PO Q4H PRN (Reason: Nausea) RF: 0 lorazepam [Ativan] 1 mg Tablet 1 mg PO TID PRN (Reason: Nausea) RF: 0 folic acid 1 mg tablet 1 mg PO DAILY@08 RF: 0 oxycodone-acetaminophen 5-325 mg tablet 1 tab PO Q4H PRN (Reason: Pain) RF: 0 Discharge Orders: Discharge Order (Routine); Ordered 10/07/20 Ordered By: Alhaji Flores Other Ambulatory Orders: DME: Oxygen (Order) Location: None Selected Ordered By: Alhaji Flores Referrals: Dali Jimenez MD [Primary Care Provider] - 1 week (unable to reach..fax sent to main office about this appt.. they should call you with an appt ) Discharge Diet: Advance as tolerated and Regular Discharge Activity: Limit activity as instructed and Oxygen as instructed Patient Instructions: Morphine, Rapid Release (By mouth), Levofloxacin (By mouth), Vancomycin (By mouth), Vertebral Compression Fracture (GEN), Clostridium Difficile Infection (GEN), Opioid Safety Activity Restrictions/Additional Instructions: With unstable spinal fractures and bony destruction from cancer metastases cannot safely walk, stand or sit upright. Resposition cautiously but frequently to prevent bed sores. Consider telehealth follow up with primary provider. Maintain contact precautions for C diff infection while any diarrhea is present. Bleach any common surfaces that come in contact with stool. Add protein shakes to diet as tolerating. Discharge Attestations Time Spent in Discharge Care*: greater than 30 min Quality Metrics Clinical Quality Measures During this hospital stay, did patient experience: None Coding Level of Care Code Acute [facility] note Diagnoses Sepsis A41.9 Sepsis acute organ dysfunction status: unspecified Sepsis type: sepsis due to unspecified organism Closed T8 spinal fracture S22.069A Leukopenia D72.819 Leukopenia type: unspecified Metastatic lung cancer (metastasis from lung to other site) C34.90 Protein-calorie malnutrition, severe E43 Thrombocytopenia D69.6 Anemia D64.9 Emphysema lung J43.9 Adenocarcinoma of left lung, stage 4 C34.92 Malignant neoplasm of upper lobe, left bronchus or lung C34.12 Hypoxia R09.02 Fever of unknown origin R50.9 Physical deconditioning R53.81 Pneumonia J18.9 C. difficile colitis A04.72
[2020-10-07] MEDS: pantoprazole DR 40 mg Tablet PO (08:12)
[2020-10-07] MEDS: folic acid 1 mg Tablet PO (08:12)
[2020-10-07] MEDS: dexamethasone 4 mg Tablet PO (08:12)
[2020-10-07] MEDS: phosphorus 250 mg Tablet PO (08:13)
[2020-10-07] MEDS: azithromycin 250 mg Tablet 500 MG PO (08:13)
[2020-10-07] MEDS: vancomycin 1,000 MG in sodium chloride 0.9% 250 ML 250 MG IV (08:13)
--- NOTE | 2020-10-07 10:10 | PC.CHAP ---
Pastoral Care Encounter/Spiritual Assessment Type of Contact [] Declined pleater hand visit [] Patient/Family/Request visit [] Outpatient visit [] Follow-up visit [] Physician referral [] Code/Alert [x] Routine visit [] Staff referral [] Actively dying [x] Patient sleeping [] Family support [] [] Out of room [] Palliative care [] [] Receiving care in room [] Pre-surgical visit [] Trauma [] Long length of stay [x] ICU visit [] Other: Relational/Emotional Strength [] Patient feels connected with others/family/visitors/staff [] Distress [] Loneliness/isolation [] Abandonment Spirituality of Patient [] Person of Hazel [] Attends Confucianism of their Hazel [] Believes in Prayer [] Reads Bible or Restorationist materials [] There are Spiritual issues to be addressed Medical Safety Director Interventions [x] Prayer [] Active listening [] Non-anxious presence [] Spiritual/emotional support [] Crisis/trauma care [] Spiritual counseling [] Bereavement support [] Provided bereavement packet [] Provided Bible/devotional materials [] Provided toy/stuffed animal, coloring book to patient or family member [] Provided Communion [] Anointing/Friendship [] Salvation [x] Completed spiritual assessment [] Other: Impact on Illness or Injury [] Angry [] Fearful [] Anxious [] Often cries [] Exhaustion [] Unable to work [] Unable to attend moravian [] Unable to walk/stand [] Unable to read [] Unable to drive [] Unable to eat/drink [] Unable to sleep [] Unable to be with family [] Patient intubated [] Other: Summary Time spent with patient
[2020-10-07] MEDS: morphine 10 mg/0.5 mL oral liq UD PO (12:06)
--- NOTE | 2020-10-07 12:19 | PC.NURSE ---
Pt loaded onto stretcher for transport to home. Pain med given prior to transport for c/o severe pain in back, 12/26. Pt tolerated transfer well.
--- NOTE | 2020-10-07 12:21 | PC.NURSE ---
All belongings sent with pt.
[2020-10-07 12:57] LABS: Cytomegalovirus Antibody (IGG) <0.60 U/mL; Cytomegalovirus Antibody (IGM) <30.00 AU/mL
== END 2020-10-07 12:20 | disposition hospice, home (50) | DRG 871 ==
LOC: ER 13:34 → ICU 16:06
PROVIDERS: Family Medicine; Admitting Provider Hospitalist; Emergency Provider Family Medicine; PCP Family Medicine; Visit Provider Internal Medicine
DX: A41.9 Sepsis, unspecified organism (principal); J18.9 Pneumonia, unspecified organism; C34.12 Malignant neoplasm of upper lobe, left bronchus or lung; C78.7 Secondary malignant neoplasm of liver and intrahepatic bile duct; C78.01 Secondary malignant neoplasm of right lung; C79.51 Secondary malignant neoplasm of bone; C79.31 Secondary malignant neoplasm of brain; D84.821 Immunodeficiency due to drugs; E46 Unspecified protein-calorie malnutrition; A04.72 Enterocolitis due to Clostridium difficile, not specified as recurrent; M84.58XA Pathological fracture in neoplastic disease, other specified site, initial encounter for fracture; Z92.3 Personal history of irradiation; Z79.899 Other long term (current) drug therapy; Z87.891 Personal history of nicotine dependence; Z85.46 Personal history of malignant neoplasm of prostate; Z95.828 Presence of other vascular implants and grafts; I95.9 Hypotension, unspecified; Z86.19 Personal history of other infectious and parasitic diseases; I10 Essential (primary) hypertension; Z68.22 Body mass index [BMI] 22.0-22.9, adult; D69.6 Thrombocytopenia, unspecified; J43.9 Emphysema, unspecified; D64.9 Anemia, unspecified; Z79.891 Long term (current) use of opiate analgesic; E27.9 Disorder of adrenal gland, unspecified; Z66 Do not resuscitate; F41.9 Anxiety disorder, unspecified
CPT/HCPCS: 36415; 36591; 71045; 71275; 74177; 80053; 80074; 80202; 81001; 82274; 83605; 83630; 83735; 83880; 84100; 84145; 84443; 84484; 85007; 85025; 85651; 86140; 86403; 87040; 87070; 87086; 87106; 87205; 87426; 87493; 87506; 87635; 87806; 93005; 94664; 94760; 96365; 96367; 96372; 99291; C9113; J0456; J1644; J2543; J3370; J3475; J7030; J7050; J8540; Q0144; Q9967